=== PATIENT | male | born 1955 | race Caucasian/White ===

== ENCOUNTER 2016-12-23 09:59 | Day surgery (SDC) | payer OTHER ==
[2016-12-22 08:42] VITALS: BMI 33.2
[~2016-12-23 09:59] MED LIST: LACTATED RINGERS 1,000 ML IV SCH; LIDOCAINE 1% 20 ML VIAL (10MG/ML) FOR IV START INTRADERMA PRN
[2016-12-23] MEDS ORDERED: LACTATED RINGERS 1,000 ML IV ONE (10:50)
[2016-12-23 10:55] VITALS: TEMP 98.1
[2016-12-23] MEDS ORDERED: PROPOFOL 10 MG/ML 20 ML VIAL IV ONE (11:48)
[2016-12-23] MEDS ORDERED: LIDOCAINE 1% INJ 10MG/ML (20 ML MDV) ONE (11:48)
--- NOTE | 2016-12-23 12:11 | P.PCN ---
Date of Procedure: 12/23/16 Procedure(s) Performed: BRIEF HISTORY: Patient is a 61-year-old pleasant white male, scheduled for an elective colonoscopy as a part of screening for colorectal neoplasia. PROCEDURE PERFORMED: Colonoscopy. PREOPERATIVE DIAGNOSIS: Screening for colon cancer. IV sedation per Anesthesia. PROCEDURE: After informed consent was obtained, the patient, was brought into the endoscopy unit. IV sedation was administered by Anesthesia under continuous monitoring. Digital rectal examination was normal. Initially the Olympus CF- 160 flexible video colonoscope was then inserted in the rectum, gradually advanced into the cecum without any difficulty. Careful examination was performed as the scope was gradually being withdrawn. Ileocecal valve and the appendiceal orifice were visualized and appeared normal. Prep was excellent. Mucosa of the cecum, ascending colon, transverse colon, descending colon, sigmoid colon, and rectum appeared normal. Scattered sigmoid diverticulosis seen. Retroflexion was performed in the rectum and no lesions were seen. The patient tolerated the procedure well. IMPRESSION: Normal-appearing colon from rectum to cecum with no evidence of colorectal neoplasia. Scattered sigmoidal diverticulosis. RECOMMENDATIONS: Findings of this examination were discussed with the patient as well as his family. He was advised to have a repeat screening colonoscopy in 10 years.
[2016-12-23 12:15] VITALS: RESP 16
[2016-12-23 12:42] VITALS: BP 118/74; PULSE 56
== END 2016-12-23 12:58 | disposition home or self-care (01) ==
LOC: ORWHC2ENDO 09:59
PROVIDERS: ATTEND Internal Medicine Gastroenterology
DX: Z12.11 Encounter for screening for malignant neoplasm of colon (principal); Z79.2 Long term (current) use of antibiotics; Z88.1 Allergy status to other antibiotic agents
CPT/HCPCS: J2001; J2704; G0121; 45378

== ENCOUNTER 2022-12-22 12:31 | Inpatient (IN) | payer BC ==
[2022-12-22] MEDS ORDERED: ONDANSETRON 4 MG/2 ML VIAL IVP STA (13:45)
[2022-12-22] MEDS ORDERED: SODIUM CHLORIDE 0.9% 1,000 ML IV STA ×2 (13:45→15:47)
[2022-12-22] MEDS ORDERED: ACETAMINOPHEN TAB 500 MG TAB PO STA (14:04)
[2022-12-22 14:21] LABS: Basophils % (A) 0 %; Eosinophils % (A) 0 %; HCT 47.1 % (39.0-53.0); HGB 15.7 gm/dL (13.0-17.5); Lymphocytes # (A) 1.7 k/uL (1.0-4.8); Lymphocytes % (A) 16 %; MCH 31.7 pg (25.0-35.0); MCHC 33.3 g/dL (31.0-37.0); MCV 95.4 fL (80.0-100.0); Mean Platelet Volume 8.1; Monocytes # (A) 0.5 k/uL (0-1.0); Monocytes % (A) 5 %; Neutrophils # (A) 7.9 k/uL (1.3-7.7); Neutrophils % (A) 78 %; Platelet Count 191 k/uL (150-450); RBC 4.94 m/uL (4.30-5.90); RDW 12.9 % (11.5-15.5); WBC 10.3 k/uL (3.8-10.6)
[2022-12-22 14:33] LABS: Amorphous Sediment,Urine Rare /hpf; Appearance,Urine Cloudy (Clear); Bilirubin,Urine Negative (Negative); Blood,Urine Negative (Negative); Color,Urine Yellow; Glucose,Urine (UA) Negative (Negative); Ketones,Urine 1+ (Negative); Leukocyte Esterase,Urine Large (Negative); Mucus,Urine Many /hpf; Nitrite,Urine Positive (Negative); Protein,Urine 1+ (Negative); RBC,Urine 13 /hpf (0-5); Specific Gravity,Urine 1.024 (1.001-1.035); Urobilinogen,Urine <2.0 mg/dL (<2.0); WBC,Urine 101 /hpf (0-5)
[2022-12-22 14:41] LABS: ALT 23 U/L (4-49); AST 25 U/L (17-59); African American GFR (CKD) >90 (>60 ml/min/1.73 sqM); Albumin 4.2 g/dL (3.5-5.0); Alkaline Phosphatase 51 U/L (38-126); Anion Gap 9 mmol/L; Blood Urea Nitrogen 15 mg/dL (9-20); Calcium 9.1 mg/dL (8.4-10.2); Carbon Dioxide 28 mmol/L (22-30); Chloride 99 mmol/L (98-107); Glucose 109 mg/dL (74-99); Lipase 56 U/L (23-300); Non-African American GFR(CKD) >90 (>60 ml/min/1.73 sqM); Potassium 4.4 mmol/L (3.5-5.1); Sodium 136 mmol/L (137-145); Total Bilirubin 1.5 mg/dL (0.2-1.3); Total Protein 7.1 g/dL (6.3-8.2)
[2022-12-22] MEDS ORDERED: PIPERACILLIN-TAZOBACTAM 3.375 GM in SODIUM CHLORIDE 0.9% 100 ML IVPB STA (15:21)
--- NOTE | 2022-12-22 15:26 | CT ---
EXAMINATION TYPE: CT abdomen pelvis w con DATE OF EXAM: 12/22/2022 COMPARISON: None HISTORY: abdominal pain CT DLP: 1388.6 mGycm Automated exposure control for dose reduction was used. CONTRAST: CT scan of the abdomen pelvis is performed with IV Contrast, patient injected with 100mL mL of Isovue 300. FINDINGS- LUNG BASES- bilateral lower lobe infiltrate. Coronary artery calcification. LIVER/GB- multiple hypodense hepatic lesions typical simple cyst. PANCREAS- No gross abnormality is seen. SPLEEN- No gross abnormality is seen. ADRENALS- nonspecific thickening of the right adrenal gland. KIDNEYS/BLADDER- no hydronephrosis or nephrolithiasis. Parapelvic renal cysts.. BOWEL- there is inflammatory change within the right lower quadrant. Dilated small bowel loops are s een which could represent a reactive ileus. Appendix appears to be dilated measuring 1 cm. Ill-define d small fluid collection seen adjacent. There is a single questionable area of tiny free air noted on axial image 54 there is wall thickening of the distal ileum which could be reactive. Diverticulosis of the colon. LYMPH NODES- No greater than 1cm abdominal or pelvic lymph nodes are appreciated. OSSEOUS STRUCTURES- multilevel hypertrophic and degenerative changes. OTHER- prostate calcifications are noted. Trabeculation of the bladder correlate for chronic cystiti s. Aorta normal. IMPRESSION- 1. Severe inflammatory changes right lower quadrant most likely on the basis of acute appendicitis. T iny single free air bubble axial image 53 not excluded. There are is adjacent to a tiny 1.2 cm locali zed fluid collection. Could not exclude a tiny developing abscess. 2. Diffuse dilated small bowel likely reactive secondary to the right lower quadrant inflammatory pro cess and representing ileus correlate clinically.
[2022-12-22] MEDS ORDERED: NALOXONE 0.4 MG/ML 1 ML VIAL IV PRN ×2 (15:44→19:33)
[2022-12-22] MEDS ORDERED: ACETAMINOPHEN TAB 325 MG TAB PO PRN (15:48)
[2022-12-22] MEDS ORDERED: ONDANSETRON 4 MG/2 ML VIAL IVP PRN (15:49)
--- NOTE | 2022-12-22 15:57 | ED ---
Abdominal Pain HPI - General Chief Complaint: Abdominal Pain Stated Complaint: Abd pain Time Seen by Provider: 12/22/22 13:44 Source: patient Mode of arrival: ambulatory Limitations: no limitations - History of Present Illness Initial Comments: Patient is 67-year-old male who presents the emergency department for abdominal pain. Patient has pain in his right lower quadrant which is intermittent ranging from moderate to severe. Patient currently has mild pain. He has had nausea without vomiting. He denies fever and chills. Denies urinary symptoms. Denies changes in bowel habits. Sent from urgent care. No history of abdominal surgery. - Related Data Home Medications Medication Instructions Recorded Confirmed No Known Home Medications 01/17/17 01/22/17 Allergies Allergy/AdvReac Type Severity Reaction Status Date / Time azithromycin Allergy Intermediate Rash/Hives Verified 12/22/22 12:42 [From Zithromax Z-Alex] Review of Systems ROS Statement: Those systems with pertinent positive or pertinent negative responses have been documented in the HPI. ROS Other: All systems not noted in ROS Statement are negative. Past Medical History Past Medical History: Pulmonary Embolus (PE) Additional Past Medical History / Comment(s): SOLAR KERATOSIS. PRE CANCEROUS LESIONS-SCALP, FACE, HEAD. CURRENTLY ON ANTIBIOTICS FOR UTI SINCE 12/20/16 History of Any Multi-Drug Resistant Organisms: None Reported Past Surgical History: Orthopedic Surgery, Tonsillectomy Additional Past Surgical History / Comment(s): LT PATELLAR REPAIR. COLONOSCOPY Past Anesthesia/Blood Transfusion Reactions: Previous Problems w/ Anesthesia Additional Past Anesthesia/Blood Transfusion Reaction / Comment(s): PE 6 WEEKS AFTER KNEE SX Past Psychological History: No Psychological Hx Reported Past Alcohol Use History: Occasional Past Drug Use History: None Reported - Past Family History Mother History Unknown: Yes Additional Family Medical History / Comment(s): PT ADOPTED-FAMILY HX UNKNOWN General Exam Limitations: no limitations General appearance: alert Respiratory exam: Present: normal lung sounds bilaterally. Absent: respiratory distress, wheezes, rales, rhonchi, stridor Cardiovascular Exam: Present: regular rate, normal rhythm, normal heart sounds. Absent: systolic murmur, diastolic murmur, rubs, gallop, clicks GI/Abdominal exam: Present: soft, tenderness (RLQ mild ), normal bowel sounds. Absent: distended, guarding, rebound, rigid Neurological exam: Present: alert Psychiatric exam: Present: normal affect, normal mood Skin exam: Present: warm, dry, intact, normal color. Absent: rash Course Vital Signs 12/22/22 12/22/22 12:42 14:21 Temperature 98.6 F Pulse Rate 90 80 Respiratory 16 18 Rate Blood Pressure 112/74 118/72 O2 Sat by Pulse 94 L 94 L Oximetry Medical Decision Making - Medical Decision Making Was pt. sent in by a medical professional or institution (, PA, CENTRAL OFFICE WORKER, urgent care, hospital, or group home...) When possible be specific @Urgent care Did you speak to anyone other than the patient for history (EMS, parent, family, police, friend...)? What history was obtained from this source @ -No Did you review nursing and triage notes (agree or disagree)? Why? @ -I reviewed and agree with nursing and triage notes Were old charts reviewed (outside hosp., previous admission, EMS record, old EKG, old radiological studies, urgent care reports/EKG's, group home records)? Report findings @ -No old charts were reviewed Differential Diagnosis (chest pain, altered mental status, abdominal pain women, abdominal pain men, vaginal bleeding, weakness, fever, dyspnea, syncope, headache, dizziness, GI bleed, back pain, seizure, CVA, palpatations, mental health)? @ -Differential Abdominal Pain Men: Appendicitis, cholecystitis, diverticulosis, ischemic bowel, pancreatitis, hepatitis, UTI, gastroenteritis, AAA, incarcerated hernia, bowel obstruction, constipation, inflammatory bowel, hepatitis, peptic ulcer disease, splenic infarction, perforated viscus, testicular torsion, this is not meant to be an all-inclusive list EKG interpreted by me (3pts min.). @ -As above X-rays interpreted by me (1pt min.). @ -None done CT interpreted by me (1pt min.). @ -None done U/S interpreted by me (1pt. min.). @ -None done What testing was considered but not performed or refused? (CT, X-rays, U/S, labs)? Why? @ -None What meds were considered but not given or refused? Why? @ -None Did you discuss the management of the patient with other professionals (professionals i.e. , PA, CENTRAL OFFICE WORKER, lab, RT, psych nurse, social media coordinator, junior assistant manager, teacher, fire information officer, special education case manager)? Give summary @ -No Was smoking cessation discussed for >3mins.? @ -No Was critical care preformed (if so, how long)? @ -No Were there social determinants of health that impacted care today? How? (Homelessness, low income, unemployed, alcoholism, drug addiction, transportation, low edu. Level, literacy, decrease access to med. care, nursing home, rehab)? @ -No Was there de-escalation of care discussed even if they declined (Discuss DNR or withdrawal of care, Hospice)? DNR status @ -No What co-morbidities impacted this encounter? (DM, HTN, Smoking, COPD, CAD, Cancer, CVA, ARF, Chemo, Hep., AIDS, mental health diagnosis, sleep apnea, morbid obesity)? @ -None Was patient admitted / discharged? Hospital course, mention meds given and route, prescriptions, significant lab abnormalities, going to OR and other pertinent info. @ -Patient presented for right lower quadrant pain. The abdomen is soft is mild tenderness in the right lower quadrant no guarding. Patient is nontoxic- appearing, afebrile. No leukocytosis. Pain controlled with Tylenol. CT obtained interpreted by myself/radiology showing severe inflammatory changes consistent with appendicitis. I did speak with radiologist was concern for tiny free air bubble and adjacent tiny 1.2 cm localized fluid collection reflecting possible early abscess. There is also diffuse dilated small bowel likely reactive represent possible ileus. Blood cultures obtained IV Zosyn started. Discussed case with Dr. Barraza patient to be admitted for appendicitis he is NPO. Admitted in stable condition Undiagnosed new problem with uncertain prognosis? @ -No Drug Therapy requiring intensive monitoring for toxicity (Heparin, Nitro, Insulin, Cardizem)? @ -No Were any procedures done? @ -No Diagnosis/symptom? @ -Appendicitis Acute, or Chronic, or Acute on Chronic? @ Acute Uncomplicated (without systemic symptoms) or Complicated (systemic symptoms)? @ -complicated Side effects of treatment? @ -No Exacerbation, Progression, or Severe Exacerbation? @ -No Poses a threat to life or bodily function? How? (Chest pain, USA, ME, pneumonia, PE, COPD, DKA, ARF, appy, cholecystitis, CVA, Diverticulitis, Homicidal, Suicidal, threat to staff... and all critical care pts) @ -yes Dr. Milligan is my attending - Lab Data Result diagrams: 12/22/22 13:58 12/22/22 13:58 Lab Results 12/22/22 12/22/22 12/22/22 Range/Units 13:58 13:58 13:58 WBC 10.3 (3.8-10.6) k/uL RBC 4.94 (4.30-5.90) m/uL Hgb 15.7 (13.0-17.5) gm/dL Hct 47.1 (39.0-53.0) % MCV 95.4 (80.0-100.0) fL MCH 31.7 (25.0-35.0) pg MCHC 33.3 (31.0-37.0) g/dL RDW 12.9 (11.5-15.5) % Plt Count 191 (150-450) k/uL MPV 8.1 Neutrophils % 78 % Lymphocytes % 16 % Monocytes % 5 % Eosinophils % 0 % Basophils % 0 % Neutrophils # 7.9 H (1.3-7.7) k/uL Lymphocytes # 1.7 (1.0-4.8) k/uL Monocytes # 0.5 (0-1.0) k/uL Eosinophils # 0.0 (0-0.7) k/uL Basophils # 0.0 (0-0.2) k/uL Sodium 136 L (137-145) mmol/L Potassium 4.4 (3.5-5.1) mmol/L Chloride 99 (98-107) mmol/L Carbon Dioxide 28 (22-30) mmol/L Anion Gap 9 mmol/L BUN 15 (9-20) mg/dL Creatinine 0.85 (0.66-1.25) mg/dL Est GFR (CKD-EPI)AfAm >90 (>60 ml/min/1.73 sqM) Est GFR (CKD-EPI)NonAf >90 (>60 ml/min/1.73 sqM) Glucose 109 H (74-99) mg/dL Plasma Lactic Acid Rajeev (0.7-2.0) mmol/L Calcium 9.1 (8.4-10.2) mg/dL Total Bilirubin 1.5 H (0.2-1.3) mg/dL AST 25 (17-59) U/L ALT 23 (4-49) U/L Alkaline Phosphatase 51 (38-126) U/L Total Protein 7.1 (6.3-8.2) g/dL Albumin 4.2 (3.5-5.0) g/dL Lipase 56 (23-300) U/L Urine Color Yellow Urine Appearance Cloudy (Clear) Urine pH 6.0 (5.0-8.0) Ur Specific [place] 1.024 (1.001-1.035) Urine Protein 1+ H (Negative) Urine Glucose (UA) Negative (Negative) Urine Ketones 1+ H (Negative) Urine Blood Negative (Negative) Urine Nitrite Positive (Negative) Urine Bilirubin Negative (Negative) Urine Urobilinogen <2.0 (<2.0) mg/dL Ur Leukocyte Esterase Large H (Negative) Urine RBC 13 H (0-5) /hpf Urine WBC 101 H (0-5) /hpf Amorphous Sediment Rare H (None) /hpf Urine Mucus Many H (None) /hpf 12/22/22 Range/Units 13:58 WBC (3.8-10.6) k/uL RBC (4.30-5.90) m/uL Hgb (13.0-17.5) gm/dL Hct (39.0-53.0) % MCV (80.0-100.0) fL MCH (25.0-35.0) pg MCHC (31.0-37.0) g/dL RDW (11.5-15.5) % Plt Count (150-450) k/uL MPV Neutrophils % % Lymphocytes % % Monocytes % % Eosinophils % % Basophils % % Neutrophils # (1.3-7.7) k/uL Lymphocytes # (1.0-4.8) k/uL Monocytes # (0-1.0) k/uL Eosinophils # (0-0.7) k/uL Basophils # (0-0.2) k/uL Sodium (137-145) mmol/L Potassium (3.5-5.1) mmol/L Chloride (98-107) mmol/L Carbon Dioxide (22-30) mmol/L Anion Gap mmol/L BUN (9-20) mg/dL Creatinine (0.66-1.25) mg/dL Est GFR (CKD-EPI)AfAm (>60 ml/min/1.73 sqM) Est GFR (CKD-EPI)NonAf (>60 ml/min/1.73 sqM) Glucose (74-99) mg/dL Plasma Lactic Acid Rajeev 1.6 (0.7-2.0) mmol/L Calcium (8.4-10.2) mg/dL Total Bilirubin (0.2-1.3) mg/dL AST (17-59) U/L ALT (4-49) U/L Alkaline Phosphatase (38-126) U/L Total Protein (6.3-8.2) g/dL Albumin (3.5-5.0) g/dL Lipase (23-300) U/L Urine Color Urine Appearance (Clear) Urine pH (5.0-8.0) Ur Specific [place] (1.001-1.035) Urine Protein (Negative) Urine Glucose (UA) (Negative) Urine Ketones (Negative) Urine Blood (Negative) Urine Nitrite (Negative) Urine Bilirubin (Negative) Urine Urobilinogen (<2.0) mg/dL Ur Leukocyte Esterase (Negative) Urine RBC (0-5) /hpf Urine WBC (0-5) /hpf Amorphous Sediment (None) /hpf Urine Mucus (None) /hpf Disposition Clinical Impression: Appendicitis Disposition: ADMITTED IP TO THIS HOSP Condition: Stable Referrals: Seferino Esteban DO [Primary Care Provider] - 1-2 days
--- NOTE | 2022-12-22 17:47 | P.GSHP ---
History of Present Illness H&P Date: 12/22/22 Chief Complaint: Right lower quadrant pain This a 67-year-old male who has a 24 history of right lower quadrant pain. Patient's workup in the emergency. His CAT scan suggested acute appendicitis. Past Medical History Past Medical History: Pulmonary Embolus (PE) Additional Past Medical History / Comment(s): SOLAR KERATOSIS. PRE CANCEROUS LESIONS-SCALP, FACE, HEAD. CURRENTLY ON ANTIBIOTICS FOR UTI SINCE 12/20/16 History of Any Multi-Drug Resistant Organisms: None Reported Past Surgical History: Orthopedic Surgery, Tonsillectomy Additional Past Surgical History / Comment(s): LT PATELLAR REPAIR. COLONOSCOPY Past Anesthesia/Blood Transfusion Reactions: Previous Problems w/ Anesthesia Additional Past Anesthesia/Blood Transfusion Reaction / Comment(s): PE 6 WEEKS AFTER KNEE SX Past Psychological History: No Psychological Hx Reported Past Alcohol Use History: Occasional Past Drug Use History: None Reported - Past Family History Mother History Unknown: Yes Additional Family Medical History / Comment(s): PT ADOPTED-FAMILY HX UNKNOWN Medications and Allergies Home Medications Medication Instructions Recorded Confirmed Type No Known Home Medications 01/17/17 12/22/22 History Allergies Allergy/AdvReac Type Severity Reaction Status Date / Time azithromycin Allergy Intermediate Rash/Hives Verified 12/22/22 16:15 [From Zithromax Z-Alex] Surgical - Exam Vital Signs Temp Pulse Resp BP Pulse Ox 98.6 F 90 16 112/74 94 L 12/22/22 12:42 12/22/22 12:42 12/22/22 12:42 12/22/22 12:42 12/22/22 12:42 - General well developed, well nourished, no distress - Eyes PERRL - ENT normal pinna - Neck no masses - Respiratory normal expansion - Cardiovascular Rhythm: regular - Abdomen Marked right lower quadrant tenderness Abdomen: soft Results - Labs 12/22/22 13:58 12/22/22 13:58 Abnormal Lab Results - Last 24 Hours (Table) 12/22/22 12/22/22 12/22/22 Range/Units 13:58 13:58 13:58 Neutrophils # 7.9 H (1.3-7.7) k/uL Sodium 136 L (137-145) mmol/L Glucose 109 H (74-99) mg/dL Total Bilirubin 1.5 H (0.2-1.3) mg/dL Urine Protein 1+ H (Negative) Urine Ketones 1+ H (Negative) Ur Leukocyte Esterase Large H (Negative) Urine RBC 13 H (0-5) /hpf Urine WBC 101 H (0-5) /hpf Amorphous Sediment Rare H (None) /hpf Urine Mucus Many H (None) /hpf Diabetes panel 12/22/22 Range/Units 13:58 Sodium 136 L (137-145) mmol/L Potassium 4.4 (3.5-5.1) mmol/L Chloride 99 (98-107) mmol/L Carbon Dioxide 28 (22-30) mmol/L BUN 15 (9-20) mg/dL Creatinine 0.85 (0.66-1.25) mg/dL Glucose 109 H (74-99) mg/dL Calcium 9.1 (8.4-10.2) mg/dL AST 25 (17-59) U/L ALT 23 (4-49) U/L Alkaline Phosphatase 51 (38-126) U/L Total Protein 7.1 (6.3-8.2) g/dL Albumin 4.2 (3.5-5.0) g/dL Calcium panel 12/22/22 Range/Units 13:58 Calcium 9.1 (8.4-10.2) mg/dL Albumin 4.2 (3.5-5.0) g/dL Pituitary panel 12/22/22 Range/Units 13:58 Sodium 136 L (137-145) mmol/L Potassium 4.4 (3.5-5.1) mmol/L Chloride 99 (98-107) mmol/L Carbon Dioxide 28 (22-30) mmol/L BUN 15 (9-20) mg/dL Creatinine 0.85 (0.66-1.25) mg/dL Glucose 109 H (74-99) mg/dL Calcium 9.1 (8.4-10.2) mg/dL Adrenal panel 12/22/22 Range/Units 13:58 Sodium 136 L (137-145) mmol/L Potassium 4.4 (3.5-5.1) mmol/L Chloride 99 (98-107) mmol/L Carbon Dioxide 28 (22-30) mmol/L BUN 15 (9-20) mg/dL Creatinine 0.85 (0.66-1.25) mg/dL Glucose 109 H (74-99) mg/dL Calcium 9.1 (8.4-10.2) mg/dL Total Bilirubin 1.5 H (0.2-1.3) mg/dL AST 25 (17-59) U/L ALT 23 (4-49) U/L Alkaline Phosphatase 51 (38-126) U/L Total Protein 7.1 (6.3-8.2) g/dL Albumin 4.2 (3.5-5.0) g/dL - Imaging CT scan - abdomen: report reviewed (Computed tomography scan shows evidence of a dilated appendix with inflammatory changes right lower quadrant) Assessment and Plan Assessment: Acute appendicitis. Patient undergo laparoscopic appendectomy
[2022-12-22] MEDS ORDERED: PROPOFOL 10 MG/ML 20 ML VIAL IV ONE (18:43)
[2022-12-22] MEDS ORDERED: fentaNYL (PF) 50 MCG/ML 2 ML AMP ONE (18:43)
[2022-12-22] MEDS ORDERED: ROCURONIUM 10 MG/ML (5 ML VIAL) IV ONE (18:43)
[2022-12-22] MEDS ORDERED: GLYCOPYRROLATE 0.2 MG/ML 2 ML VIAL ONE (18:43)
[2022-12-22] MEDS ORDERED: NEOSTIGMINE 1 MG/ML 10 ML VIAL ONE (18:43)
[2022-12-22] MEDS ORDERED: PHENYLEPHRINE-0.9% NACL SYG 1,000 MCG/10 ML SYRINGE ONE (18:43)
[2022-12-22] MEDS ORDERED: KETOROLAC 15 MG/ML 1 ML VIAL ONE (18:43)
[2022-12-22] MEDS ORDERED: MIDAZOLAM 2 MG/2 ML VIAL ONE (18:43)
[2022-12-22] MEDS ORDERED: LIDOCAINE 2% INJ 20 MG/ML (2 ML VIAL) ONE (18:43)
[2022-12-22] MEDS ORDERED: SUCCINYLCHOLINE CHLORIDE 200 MG/10 ML VIAL IV ONE (18:43)
[2022-12-22] MEDS ORDERED: LACTATED RINGERS 1,000 ML IV ONE ×2 (18:45→19:33)
[2022-12-22] MEDS ORDERED: ONDANSETRON 4 MG/2 ML VIAL IVP ONE (18:47)
[2022-12-22] MEDS ORDERED: DEXAMETHASONE SOD PHOSPHATE 4 MG/ML 1 ML VIAL IVP ONE (18:47)
[2022-12-22] MEDS ORDERED: HEPARIN SODIUM,PORCINE 5,000 UNIT/ML 1 ML VIAL SQ ONE (18:48)
[2022-12-22] MEDS ORDERED: LIDOCAINE 1%-EPI 1:100,000 50 ML VIAL SQ ONE (19:10)
[2022-12-22] MEDS ORDERED: HYDROmorphone 1 MG/ML 1 ML SYRINGE IVP PRN (19:33)
--- NOTE | 2022-12-22 19:33 | P.OP ---
Date of Procedure: 12/22/22 Preoperative Diagnosis: Acute appendicitis Postoperative Diagnosis: Acute appendicitis Procedure(s) Performed: Laparoscopic appendectomy Anesthesia: DUC Surgeon: Curry Barraza Estimated Blood Loss (ml): 10 Pathology: other (Appendix) Condition: stable Disposition: PACU Description of Procedure: The patient's placed on the operating table in the supine position. The patient received general anesthesia. The abdomen was prepped and draped in the usual sterile fashion. The skin was anesthetized 1% local Xylocaine at the trocar sites. Using an 11 blade the skin was incised at the umbilicus. The umbilicus was grasped with a Kumar clamp and then a Veress needle was placed into the peritoneal cavity. Position of the Veress needle was confirmed with positive drop test. After adequate insufflation a 5 mm trocar was placed into the peritoneal cavity. The abdomen was further insufflated. And then the laparoscope was placed in the peritoneal cavity. Next a 5 mm trocar was placed in the midline suprapubic position. And then a 10 mm trocar was placed in the midline epigastric position. The patient was rotated with the right side up and in Trendelenburg. The appendix was visualized. The appendix appeared to be inflamed. The appendix was grasped and then using the Harmonic scissors the mesoappendix was divided. A PDS Endoloop was then placed around the base of the appendix. And then the appendix was divided using Harmonic scissors. The appendix was placed into an Endo Catch and brought out through the 10 mm trocar site. The abdomen was irrigated. There is no bleeding seen. The trochars withdrawn. The skin was closed interrupted 3-0 Monocryl suture. Dermabond dressing was applied. Patient was sent to recovery room in stable condition.
[2022-12-22] MEDS ORDERED: METOCLOPRAMIDE 5 MG/ML 2 ML VIAL IVP ONE (19:42)
[2022-12-22] MEDS: HYDROmorphone 0.5 MG/0.5 ML SYRINGE IVP PRN (20:48)
[2022-12-23] MEDS: KETOROLAC 15 MG/ML 1 ML VIAL IVP SCH ×4 (00:08→17:59)
[2022-12-23] MEDS ORDERED: SODIUM CHLORIDE 0.9% 1,000 ML IV ONE (00:38)
[2022-12-23 01:14] LABS: HCT 31.1 % (39.0-53.0); MCH 31.8 pg (25.0-35.0); MCHC 32.5 g/dL (31.0-37.0); MCV 98.1 fL (80.0-100.0); Mean Platelet Volume 9.6; Platelet Count 171 k/uL (150-450); RBC 3.17 m/uL (4.30-5.90); RDW 13.4 % (11.5-15.5); WBC 8.9 k/uL (3.8-10.6)
[2022-12-23 01:17] LABS: HGB 10.1 gm/dL (13.0-17.5)
[2022-12-23] MEDS: ENOXAPARIN 40 MG/0.4 ML SYRINGE SQ SCH (09:20)
[2022-12-23 13:12] LABS: Basophils # (A) 0.02 X 10*3/uL (0.00-0.10); Basophils % (A) 0.2 %; Eosinophils # (A) 0 X 10*3/uL (0.04-0.35); Eosinophils % (A) 0 %; HCT 34.5 % (39.6-50.0); Lymphocytes # (A) 1.36 X 10*3/uL (0.90-5.00); Lymphocytes % (A) 11.9 %; MCH 31.1 pg (27.0-32.0); MCHC 31.9 d/dL (32.0-37.0); MCV 97.5 FL (80.0-97.0); Mean Platelet Volume 10.9 FL (9.5-12.2); Monocytes # (A) 0.74 X 10*3/uL (0.20-1.00); Monocytes % (A) 6.5 %; NRBC Per 100 WBC 0 X 10*3/uL (0.00-0.01); Neutrophils # (A) 9.22 X 10*3/uL (1.80-7.70); Neutrophils % (A) 80.9 %; Platelet Count 200 X 10*3/uL (140-440); RBC 3.54 X 10*6/uL (4.40-5.60); RDW 13.4 % (11.5-14.5)
--- NOTE | 2022-12-23 13:26 | P.CONS ---
History of Present Illness - Reason for Consult Consult date: 12/23/22 Medical management - History of Present Illness History of present illness; patient is a 67-year-old gentleman with no significant past medical history who presented to the ER for right lower quadrant abdominal pain. Patient was sent in from urgent care. Patient has been having this abdominal pain for the last few days, intermittent, nonradiating. Denies any fever or chills. Was having nausea but no vomiting. Because of abdominal pain, he was referred to ER for suspicion of acute appendicitis Initial lab work done in the ER showed WBC 10.3, hemoglobin 15.7, platelet, 91, sodium 136, potassium 4.4, BUN 15, creatinine 0.85, bilirubin 1.5 CT abdominal and pelvis done showed severe inflammatory changes in right lower quadrant most likely on the basis of acute appendicitis. Patient was admitted to surgery service, patient underwent left pubic appendicectomy. Postoperative medical team consulted REVIEW OF SYSTEMS: CONSTITUTIONAL: No fever, no malaise, no fatigue. HEENT: No recent visual problems or hearing problems. Denied any sore throat. CARDIOVASCULAR: No chest pain, orthopnea, PND, no palpitations, no syncope. PULMONARY: No shortness of breath, no cough, no hemoptysis. GASTROINTESTINAL: Complaining of abdominal pain, denies any nausea or vomiting NEUROLOGICAL: No headaches, no weakness, no numbness. HEMATOLOGICAL: Denies any bleeding or petechiae. GENITOURINARY: Denies any burning micturition, frequency, or urgency. MUSCULOSKELETAL/RHEUMATOLOGICAL: Denies any joint pain, swelling, or any muscle pain. ENDOCRINE: Denies any polyuria or polydipsia. The rest of the 14-point review of systems is negative. PHYSICAL EXAMINATION: GENERAL: The patient is alert and oriented x3, not in any acute distress. Well developed, well nourished. HEENT: Pupils are round and equally reacting to light. EOMI. No scleral icterus. No conjunctival pallor. Normocephalic, atraumatic. No pharyngeal erythema. No thyromegaly. CARDIOVASCULAR: S1 and S2 present. No murmurs, rubs, or gallops. PULMONARY: Chest is clear to auscultation, no wheezing or crackles. ABDOMEN: Tender, laparoscopic surgical incision seen, bowel sounds audible MUSCULOSKELETAL: No joint swelling or deformity. EXTREMITIES: No cyanosis, clubbing, or pedal edema. NEUROLOGICAL: Gross neurological examination did not reveal any focal deficits. SKIN: No rashes. Assessment and plan Acute appendicitis status post laparoscopic appendicectomy Monitor vital signs Monitor CBC Monitor CMP Continue pain management per surgery Advance diet per surgery Encourage ambulation Aggressive use of I-S Patient does not take any prescription medications for any chronic conditions. Labs and medication were reviewed.. Continue same treatment. Continue with symptomatic treatment. Resume home medication. Monitor labs and vitals. DVT and GI prophylaxis. Further recommendations as per clinical course of the patient Dictation was produced using [employer] dictation software. please excuse any grammatical, word or spelling errors. Past Medical History Past Medical History: Pulmonary Embolus (PE) Additional Past Medical History / Comment(s): SOLAR KERATOSIS. PRE CANCEROUS LESIONS-SCALP, FACE, HEAD. CURRENTLY ON ANTIBIOTICS FOR UTI SINCE 12/20/16 History of Any Multi-Drug Resistant Organisms: None Reported Past Surgical History: Orthopedic Surgery, Tonsillectomy Additional Past Surgical History / Comment(s): LT PATELLAR REPAIR. COLONOSCOPY Past Anesthesia/Blood Transfusion Reactions: Previous Problems w/ Anesthesia Additional Past Anesthesia/Blood Transfusion Reaction / Comm: PE 6 WEEKS AFTER KNEE SX Past Psychological History: No Psychological Hx Reported Smoking Status: Never smoker Past Alcohol Use History: None Reported Past Drug Use History: None Reported - Past Family History Mother History Unknown: Yes Additional Family Medical History / Comment(s): PT ADOPTED-FAMILY HX UNKNOWN Medications and Allergies Home Medications Medication Instructions Recorded Confirmed Type No Known Home Medications 01/17/17 12/22/22 History Allergies Allergy/AdvReac Type Severity Reaction Status Date / Time azithromycin Allergy Intermediate Rash/Hives Verified 12/22/22 16:15 [From Zithromax Z-Alex] Physical Exam Vitals: Vital Signs Temp Pulse Pulse Pulse Resp BP BP 12/23/22 09:23 96 107/68 12/23/22 08:07 98.3 F 99 16 104/70 12/23/22 05:05 85 12/23/22 04:50 85 12/23/22 04:35 87 12/23/22 04:15 83 12/23/22 04:05 88 12/23/22 03:50 89 12/23/22 03:25 62 12/23/22 03:10 96 12/23/22 02:50 94 12/23/22 02:35 87 12/23/22 02:10 85 12/23/22 01:57 99 12/23/22 01:40 95 12/23/22 01:12 86 12/23/22 00:55 90 12/23/22 00:40 95 12/23/22 00:31 105 H 83/57 12/22/22 21:56 97 12/22/22 21:40 100 12/22/22 21:25 77 12/22/22 21:11 63 12/22/22 20:56 62 12/22/22 20:41 52 L 12/22/22 20:07 62 16 12/22/22 20:00 97.5 F L 52 L 17 12/22/22 19:52 71 16 12/22/22 19:37 85 16 12/22/22 18:30 97 F L 79 25 H 12/22/22 17:00 56 L 18 99/60 12/22/22 16:01 54 L 18 115/68 12/22/22 14:21 80 18 118/72 BP Pulse Ox 12/23/22 09:23 12/23/22 08:07 95 12/23/22 05:05 103/64 97 12/23/22 04:50 96/60 97 12/23/22 04:35 101/67 96 12/23/22 04:15 99/65 96 12/23/22 04:05 102/66 97 12/23/22 03:50 101/68 97 12/23/22 03:25 97/68 98 12/23/22 03:10 98/65 96 12/23/22 02:50 89/58 96 12/23/22 02:35 99/66 97 12/23/22 02:10 95/63 98 12/23/22 01:57 101/65 98 12/23/22 01:40 95/61 97 12/23/22 01:12 96/60 95 12/23/22 00:55 103/67 96 12/23/22 00:40 75/57 12/23/22 00:31 95 12/22/22 21:56 104/67 95 12/22/22 21:40 92/59 96 12/22/22 21:25 85/57 96 12/22/22 21:11 100/58 95 12/22/22 20:56 99/65 94 L 12/22/22 20:41 116/73 96 12/22/22 20:07 118/64 96 12/22/22 20:00 121/70 96 12/22/22 19:52 110/57 92 L 12/22/22 19:37 109/67 96 12/22/22 18:30 122/67 97 12/22/22 17:00 94 L 12/22/22 16:01 93 L 12/22/22 14:21 94 L Intake and Output 12/22/22 12/23/22 12/23/22 22:59 06:59 14:59 Intake Total 850 Output Total 10 900 Balance 840 -900 Intake: IV 850 Output: Urine 0 900 Straight 900 Estimated Blood Loss 10 Other: # Voids 0 Weight 93.894 kg Results CBC & Chem 7: 12/23/22 05:50 12/22/22 13:58 Labs: Abnormal Lab Results - Last 24 Hours (Table) 12/22/22 12/22/22 12/22/22 Range/Units 13:58 13:58 13:58 WBC (4.50-10.00) X 10*3/uL RBC (4.30-5.90) m/uL Hgb (13.0-17.5) gm/dL Hct (39.0-53.0) % MCV (80.0-97.0) FL MCHC (32.0-37.0) d/dL Neutrophils # 7.9 H (1.3-7.7) k/uL Eosinophils # (0.04-0.35) X 10*3/uL Sodium 136 L (137-145) mmol/L Glucose 109 H (74-99) mg/dL Total Bilirubin 1.5 H (0.2-1.3) mg/dL Urine Protein 1+ H (Negative) Urine Ketones 1+ H (Negative) Ur Leukocyte Esterase Large H (Negative) Urine RBC 13 H (0-5) /hpf Urine WBC 101 H (0-5) /hpf Amorphous Sediment Rare H (None) /hpf Urine Mucus Many H (None) /hpf 12/23/22 12/23/22 Range/Units 00:59 05:50 WBC 11.40 H (4.50-10.00) X 10*3/uL RBC 3.17 L 3.54 L (4.30-5.90) m/uL Hgb 10.1 L D 11.0 L (13.0-17.5) gm/dL Hct 31.1 L 34.5 L (39.0-53.0) % MCV 97.5 H (80.0-97.0) FL MCHC 31.9 L (32.0-37.0) d/dL Neutrophils # 9.22 H (1.3-7.7) k/uL Eosinophils # 0 L (0.04-0.35) X 10*3/uL Sodium (137-145) mmol/L Glucose (74-99) mg/dL Total Bilirubin (0.2-1.3) mg/dL Urine Protein (Negative) Urine Ketones (Negative) Ur Leukocyte Esterase (Negative) Urine RBC (0-5) /hpf Urine WBC (0-5) /hpf Amorphous Sediment (None) /hpf Urine Mucus (None) /hpf
[2022-12-23 14:21] LABS: ALT 15 U/L (10-49); AST 14 U/L (14-35); Albumin 3.5 d/dL (3.8-4.9); Albumin/Globulin Ratio 1.84 Ratio (1.60-3.17); Alkaline Phosphatase 42 U/L (41-126); Blood Urea Nitrogen 21.8 mg/dL (9.0-27.0); Calcium 8.5 mg/dL (8.7-10.3); Carbon Dioxide 24.1 mmol/L (21.6-31.8); Chloride 105 mmol/L (96-109); Globulin 1.9 d/dL (1.6-3.3); Glucose 130 mg/dL (70-110); Potassium 5.2 mmol/L (3.5-5.5); Sodium 141 mmol/L (135-145); Total Bilirubin 0.7 mg/dL (0.3-1.2); Total Protein 5.4 d/dL (6.2-8.2)
--- NOTE | 2022-12-23 16:21 | P.PN ---
Subjective Progress Note Date: 12/23/22 CHIEF COMPLAINT: Acute appendicitis HISTORY OF PRESENT ILLNESS: Patient is postop day #1 status post laparoscopic appendectomy. Patient reports last night he stood up to go use the restroom. And had significant bleeding from his top incision. Also became diaphoretic and had decrease in his BP. He did receive a liter bolus. The bleeding did stop through the night. BP has stabilized. And patient is no longer dizzy. He was placed on bedrest through the morning. Afebrile. Mild tachycardia heart rate 108 BP 110/65 WBC is 11.4 Hgb did drop from 15-10. Repeat hemoglobin 11 platelets 200 PHYSICAL EXAM: VITAL SIGNS: Reviewed. GENERAL: Well-developed in no acute distress. HEENT: No sclera icterus. Extraocular movements grossly intact. Moist buccal mucosa. Head is atraumatic, normocephalic. ABDOMEN: Soft. Nondistended. Incision sites with minimal dried blood noted. Soft. Very mild discomfort with palpation NEUROLOGIC: Alert and oriented. Cranial nerves II through XII grossly intact. ASSESSMENT: 1. Acute appendicitis status post laparoscopic appendectomy PLAN: -Advance diet as tolerated -Patient can increase activity level -Incentive spirometer ordered -[place] added for oral pain medication -Continue antibiotics -Possible discharge tomorrow -Repeat CBC in AM -DVT prophylaxis Lovenox Physician Molecular Modeler note has been reviewed by physician. Signing provider agrees with the documented findings, assessment, and plan of care. Objective - Vital Signs Vital signs: Vital Signs Temp 98.6 F 12/23/22 13:51 Pulse 108 H 12/23/22 13:51 Resp 16 12/23/22 13:51 BP 110/65 12/23/22 13:51 Pulse Ox 96 12/23/22 13:51 FiO2 Intake & Output 12/22/22 12/23/22 12/23/22 18:59 06:59 18:59 Intake Total 800 50 Output Total 10 900 Balance 800 40 -900 Weight 93.894 kg 93.894 kg Intake: IV 800 50 Output: Urine 0 900 Straight 900 Estimated Blood Loss 10 Other: # Voids 0 - Labs CBC & Chem 7: 12/23/22 05:50 12/23/22 05:50 Labs: Abnormal Lab Results - Last 24 Hours (Table) 09/22/23 09/22/23 09/22/23 Range/Units 00:59 05:50 05:50 WBC 11.40 H (4.50-10.00) X 10*3/uL RBC 3.17 L 3.54 L (4.30-5.90) m/uL Hgb 10.1 L D 11.0 L (13.0-17.5) gm/dL Hct 31.1 L 34.5 L (39.0-53.0) % MCV 97.5 H (80.0-97.0) FL MCHC 31.9 L (32.0-37.0) d/dL Neutrophils # 9.22 H (1.80-7.70) X 10*3/uL Eosinophils # 0 L (0.04-0.35) X 10*3/uL BUN/Creatinine Ratio 21.80 H (12.00-20.00) Ratio Glucose 130 H (70-110) mg/dL Calcium 8.5 L (8.7-10.3) mg/dL Total Protein 5.4 L (6.2-8.2) d/dL Albumin 3.5 L (3.8-4.9) d/dL
[2022-12-23] MEDS: PIPERACILLIN-TAZOBACTAM 3.375 GM in SODIUM CHLORIDE 0.9% 100 ML IVPB SCH (16:45)
[2022-12-23] MEDS: HYDROcodone/APAP 5-325MG 1 EACH TAB PO PRN (22:40)
[2022-12-24] MEDS: KETOROLAC 15 MG/ML 1 ML VIAL IVP SCH ×4 (00:24→16:59)
[2022-12-24] MEDS: PIPERACILLIN-TAZOBACTAM 3.375 GM in SODIUM CHLORIDE 0.9% 100 ML IVPB SCH ×4 (00:25→23:22)
[2022-12-24] MEDS: HYDROcodone/APAP 5-325MG 1 EACH TAB PO PRN (06:55)
[2022-12-24 07:36] LABS: Basophils % (A) 0 %; Eosinophils % (A) 0 %; HCT 26.8 % (39.0-53.0); Lymphocytes # (A) 1.4 k/uL (1.0-4.8); Lymphocytes % (A) 17 %; MCH 32.1 pg (25.0-35.0); MCHC 33.6 g/dL (31.0-37.0); MCV 95.5 fL (80.0-100.0); Mean Platelet Volume 9.7; Monocytes # (A) 0.5 k/uL (0-1.0); Monocytes % (A) 6 %; Neutrophils # (A) 6.2 k/uL (1.3-7.7); Neutrophils % (A) 75 %; Platelet Count 190 k/uL (150-450); RDW 13.6 % (11.5-15.5); WBC 8.2 k/uL (3.8-10.6)
[2022-12-24] MEDS: ENOXAPARIN 40 MG/0.4 ML SYRINGE SQ SCH (07:47)
--- NOTE | 2022-12-24 08:18 | P.PN ---
Progress Note - Text Progress Note Date: 12/24/22 The patient states he feels better today. He did have some bleeding from his umbilical incision site. On exam vital signs appear stable. Abdomen is soft incision sites are clean dry intact Status post laparoscopic appendectomy for severe acute appendicitis. Patient can receive IV antibiotics. He'll be observed closely.
[2022-12-24] MEDS: TAMSULOSIN 0.4 MG CAP.ER.24H PO SCH (09:49)
--- NOTE | 2022-12-24 13:47 | P.PN ---
Subjective Progress Note Date: 12/24/22 patient is a 67-year-old gentleman with no significant past medical history who presented to the ER for right lower quadrant abdominal pain. Patient was sent in from urgent care. Patient has been having this abdominal pain for the last few days, intermittent, nonradiating. Denies any fever or chills. Was having nausea but no vomiting. Because of abdominal pain, he was referred to ER for suspicion of acute appendicitis Initial lab work done in the ER showed WBC 10.3, hemoglobin 15.7, platelet, 91, sodium 136, potassium 4.4, BUN 15, creatinine 0.85, bilirubin 1.5 CT abdominal and pelvis done showed severe inflammatory changes in right lower quadrant most likely on the basis of acute appendicitis. Patient was admitted to surgery service, patient underwent left pubic appendic ectomy. Postoperative medical team consulted 12/24. Patient seen and examined. Patient has a Harrington in place. Passing gas. REVIEW OF SYSTEMS: CONSTITUTIONAL: No fever, no malaise,. CARDIOVASCULAR: No chest pain, no palpitations, no syncope. PULMONARY: No shortness of breath, no cough, GASTROINTESTINAL: No diarrhea, no nausea, no vomiting, no abdominal pain. NEUROLOGICAL: No headaches, no weakness, PHYSICAL EXAMINATION: GENERAL: The patient is alert and oriented x3, not in any acute distress. Well developed, well nourished. HEENT: Pupils are round and equally reacting to light. EOMI. No scleral icterus. No conjunctival pallor. Normocephalic, atraumatic. No pharyngeal erythema. No thyromegaly. CARDIOVASCULAR: S1 and S2 present. No murmurs, rubs, or gallops. PULMONARY: Chest is clear to auscultation, no wheezing or crackles. ABDOMEN: Laparoscopic surgical incision seen, no tenderness, no guarding MUSCULOSKELETAL: No joint swelling or deformity. EXTREMITIES: No cyanosis, clubbing, or pedal edema. NEUROLOGICAL: Gross neurological examination did not reveal any focal deficits. SKIN: No rashes. Assessment and plan Acute appendicitis status post laparoscopic appendicectomy Monitor vital signs Monitor CBC Monitor CMP Continue pain management per surgery Advance diet per surgery Encourage ambulation Aggressive use of I-S Continue IV Zosyn Gen. surgery is on board Labs and medication were reviewed.. Continue same treatment. Continue with symptomatic treatment. Resume home medication. Monitor labs and vitals. DVT and GI prophylaxis. Further recommendations as per clinical course of the patient Dictation was produced using [employer] dictation software. please excuse any grammatical, word or spelling errors. Objective - Vital Signs Vital signs: Vital Signs Temp 98.3 F 12/24/22 07:01 Pulse 50 L 12/24/22 07:01 Resp 18 12/24/22 07:01 BP 97/60 12/24/22 07:01 Pulse Ox 94 L 12/24/22 07:01 FiO2 Intake & Output 12/23/22 12/24/22 12/24/22 18:59 06:59 18:59 Output Total 900 0 Balance -900 0 Output: Urine 900 0 Straight 900 Other: Voiding Method Indwelling Catheter # Voids 0 - Labs CBC & Chem 7: 12/24/22 07:02 12/23/22 05:50 Labs: Abnormal Lab Results - Last 24 Hours (Table) 12/23/22 12/24/22 Range/Units 05:50 07:02 RBC 2.80 L (4.30-5.90) m/uL Hgb 9.0 L (13.0-17.5) gm/dL Hct 26.8 L (39.0-53.0) % BUN/Creatinine Ratio 21.80 H (12.00-20.00) Ratio Glucose 130 H (70-110) mg/dL Calcium 8.5 L (8.7-10.3) mg/dL Total Protein 5.4 L (6.2-8.2) d/dL Albumin 3.5 L (3.8-4.9) d/dL Microbiology - Last 24 Hours (Table) 12/22/22 15:51 Blood Culture - Preliminary Blood 12/22/22 15:35 Blood Culture - Preliminary Blood
[2022-12-24] MEDS: ONDANSETRON 4 MG/2 ML VIAL IVP PRN (16:59)
[2022-12-25] MEDS: ONDANSETRON 4 MG/2 ML VIAL IVP PRN ×2 (01:15→14:30)
[2022-12-25] MEDS: HYDROcodone/APAP 5-325MG 1 EACH TAB PO PRN (08:41)
[2022-12-25] MEDS: TAMSULOSIN 0.4 MG CAP.ER.24H PO SCH (08:41)
[2022-12-25] MEDS: PIPERACILLIN-TAZOBACTAM 3.375 GM in SODIUM CHLORIDE 0.9% 100 ML IVPB SCH ×3 (08:42→23:39)
[2022-12-25] MEDS: ENOXAPARIN 40 MG/0.4 ML SYRINGE SQ SCH (08:42)
[2022-12-25 09:08] LABS: HCT 24.7 % (39.6-50.0); HGB 7.8 d/dL (13.0-17.0); MCH 31.1 pg (27.0-32.0); MCHC 31.6 d/dL (32.0-37.0); MCV 98.4 FL (80.0-97.0); Mean Platelet Volume 11.2 FL (9.5-12.2); NRBC Per 100 WBC 0 X 10*3/uL (0.00-0.01); Platelet Count 219 X 10*3/uL (140-440); RBC 2.51 X 10*6/uL (4.40-5.60); RDW 13.6 % (11.5-14.5)
--- NOTE | 2022-12-25 10:24 | P.PN ---
Progress Note - Text Progress Note Date: 12/25/22 Patient issues with urinary retention yesterday. Harrington catheter in place. On exam vital signs are stable. Abdomen soft. Incision is clean dry intact. Status post laparoscopic appendectomy for acute appendicitis. Patient will mostly be discharged home tomorrow. He may require Harrington catheter.
[2022-12-25 12:18] LABS: ALT 12 U/L (10-49); AST 13 U/L (14-35); Albumin 3.2 d/dL (3.8-4.9); Albumin/Globulin Ratio 1.68 Ratio (1.60-3.17); Alkaline Phosphatase 37 U/L (41-126); BUN/Creat Ratio 27.33 Ratio (12.00-20.00); Blood Urea Nitrogen 24.6 mg/dL (9.0-27.0); Calcium 8.5 mg/dL (8.7-10.3); Carbon Dioxide 26.2 mmol/L (21.6-31.8); Chloride 104 mmol/L (96-109); Globulin 1.9 d/dL (1.6-3.3); Glucose 109 mg/dL (70-110); Potassium 4.7 mmol/L (3.5-5.5); Sodium 141 mmol/L (135-145); Total Bilirubin 0.4 mg/dL (0.3-1.2); Total Protein 5.1 d/dL (6.2-8.2)
--- NOTE | 2022-12-25 12:32 | CT ---
EXAMINATION TYPE: CT abdomen pelvis wo con CT DLP: 1141.4 mGycm, Automated exposure control for dose reduction was used. DATE OF EXAM: 12/25/2022 11:54 AM COMPARISON: CT abdomen pelvis most recent from and 12/22/2022 CLINICAL INDICATION:Male, 67 years old with history of distended abdomen; abd pain TECHNIQUE: Axial CT of the abdomen and pelvis. Sagittal and coronal reformats were created on a [employer] workstation. Contrast used: mL of , (none if empty) Oral contrast used: without Oral Contrast (none if empty) FINDINGS: LOWER CHEST: Consolidation changes are seen in the right lung base which is new from prior. Left lowe r lung airspace opacities are lesser extent. ABDOMEN LIVER: Simple appearing hepatic cysts are present. GALLBLADDER AND BILE DUCTS: Unremarkable. PANCREAS: Unremarkable. SPLEEN: Unremarkable. ADRENAL GLANDS: Unremarkable. KIDNEYS AND URETERS: No evidence of hydronephrosis or renal calculus. The ureters are unremarkable. PELVIS BLADDER: Nondistended with Harrington catheter in place. There is gas within the bladder lumen compatible with likely Harrington catheter insertion. REPRODUCTIVE: Unremarkable. ABDOMEN & PELVIS STOMACH AND BOWEL: No evidence of bowel obstruction. Scattered colonic diverticula. Small bowel dilat ion up to 4.4 cm with gaseous distention. The appendix is been surgically removed. PERITONEUM/RETROPERITONEUM: Higher density fluid is seen throughout the abdomen layering within the l ower density fluid of which is compatible with blood products. VASCULATURE: Mild atherosclerotic calcifications are present throughout the abdominal aorta and its b ranches. No evidence of aortic aneurysm. MUSCULOSKELETAL: No acute osseous abnormalities, S-shaped scoliosis is seen throughout the spine. LYMPH NODES: No gross evidence for lymphadenopathy. SOFT TISSUE/ABDOMINAL WALL: Bilateral fat-containing inguinal hernias. IMPRESSION: 1. New mixed density fluid throughout the abdomen compatible with hemoperitoneum . Findings compatib le with recent appendectomy with hemorrhage reported by robotics technologist. There is associated likely r eactive ileus and/or partial obstruction with multiple dilated loops of small bowel throughout the ab domen. No free air visualized. 2. Right lower lung airspace consolidation. Correlate for aspiration and/or pneumonia. Findings communicated to Dr. Curry Barraza MD on 12/25/2022 12:[address] Iker Hester.
--- NOTE | 2022-12-25 13:38 | P.PN ---
Subjective Progress Note Date: 12/25/22 patient is a 67-year-old gentleman with no significant past medical history who presented to the ER for right lower quadrant abdominal pain. Patient was sent in from urgent care. Patient has been having this abdominal pain for the last few days, intermittent, nonradiating. Denies any fever or chills. Was having nausea but no vomiting. Because of abdominal pain, he was referred to ER for suspicion of acute appendicitis Initial lab work done in the ER showed WBC 10.3, hemoglobin 15.7, platelet, 91, sodium 136, potassium 4.4, BUN 15, creatinine 0.85, bilirubin 1.5 CT abdominal and pelvis done showed severe inflammatory changes in right lower quadrant most likely on the basis of acute appendicitis. Patient was admitted to surgery service, patient underwent left pubic appendic ectomy. Postoperative medical team consulted 12/24. Patient seen and examined. Patient has a Harrington in place. Passing gas. 12/25. Patient seen and examined. Blood work done this morning showed WBC 8.1, hemoglobin 7.8, platelet count 219. Complaining of abdominal distention. CT abdominal and pelvis ordered REVIEW OF SYSTEMS: CONSTITUTIONAL: No fever, no malaise,. CARDIOVASCULAR: No chest pain, no palpitations, no syncope. PULMONARY: No shortness of breath, no cough, GASTROINTESTINAL: No diarrhea, no nausea, no vomiting, no abdominal pain. NEUROLOGICAL: No headaches, no weakness, PHYSICAL EXAMINATION: GENERAL: The patient is alert and oriented x3, not in any acute distress. Well developed, well nourished. HEENT: Pupils are round and equally reacting to light. EOMI. No scleral icterus. No conjunctival pallor. Normocephalic, atraumatic. No pharyngeal erythema. No thyromegaly. CARDIOVASCULAR: S1 and S2 present. No murmurs, rubs, or gallops. PULMONARY: Chest is clear to auscultation, no wheezing or crackles. ABDOMEN: Laparoscopic surgical incision seen, distended, bruising seen MUSCULOSKELETAL: No joint swelling or deformity. EXTREMITIES: No cyanosis, clubbing, or pedal edema. NEUROLOGICAL: Gross neurological examination did not reveal any focal deficits. SKIN: No rashes. Assessment and plan Acute appendicitis status post laparoscopic appendicectomy Monitor vital signs Monitor CBC Monitor CMP Ordered stat CT abdominal and pelvis Continue pain management per surgery Advance diet per surgery Encourage ambulation Aggressive use of I-S Continue IV Zosyn Gen. surgery is on board Labs and medication were reviewed.. Continue same treatment. Continue with symptomatic treatment. Resume home medication. Monitor labs and vitals. DVT and GI prophylaxis. Further recommendations as per clinical course of the patient Dictation was produced using [employer] dictation software. please excuse any grammatical, word or spelling errors. Objective - Vital Signs Vital signs: Vital Signs Temp 98.5 F 12/25/22 07:20 Pulse 93 12/25/22 07:20 Resp 18 12/25/22 07:20 BP 124/65 12/25/22 07:20 Pulse Ox 93 L 12/25/22 07:20 FiO2 Intake & Output 12/24/22 12/25/22 12/25/22 18:59 06:59 18:59 Output Total 600 271 Balance -600 -271 Output: Urine 600 271 Other: Voiding Method Indwelling Catheter Indwelling Catheter - Labs CBC & Chem 7: 12/25/22 05:59 12/25/22 05:59 Labs: Abnormal Lab Results - Last 24 Hours (Table) 12/25/22 Range/Units 05:59 RBC 2.51 L (4.40-5.60) X 10*6/uL Hgb 7.8 L (13.0-17.0) d/dL Hct 24.7 L (39.6-50.0) % MCV 98.4 H (80.0-97.0) FL MCHC 31.6 L (32.0-37.0) d/dL Microbiology - Last 24 Hours (Table) 12/22/22 15:51 Blood Culture - Preliminary Blood 12/22/22 15:35 Blood Culture - Preliminary Blood
[2022-12-25 15:29] LABS: HGB 8.1 gm/dL (13.0-17.5); MCH 32.8 pg (25.0-35.0); MCHC 33.6 g/dL (31.0-37.0); MCV 97.6 fL (80.0-100.0); Mean Platelet Volume 8.6; Platelet Count 196 k/uL (150-450); RBC 2.45 m/uL (4.30-5.90); RDW 13.7 % (11.5-15.5); WBC 7.2 k/uL (3.8-10.6)
--- NOTE | 2022-12-25 16:31 | XR ---
EXAMINATION TYPE: XR chest 1V confirm line plcpa DATE OF EXAM: 12/25/2022 4:25 PM CLINICAL INDICATION:Male, 67 years old with history of NG tube placement. COMPARISON: Radiograph 12/28/2011. TECHNIQUE: Frontal view of the chest. FINDINGS: Lungs/Pleura: Trace left pleural effusion is identified. Subsegmental atelectasis is noted in the ezequiel g bases. No evidence of pneumothorax Pulmonary vascularity: Unremarkable. Heart/mediastinum: Cardiomediastinal silhouette is unremarkable. Musculoskeletal: No acute osseous pathology. Other: Dilated loops of small bowel are noted throughout the abdomen. Lines/Tubes: Nasogastric tube with its distal tip and side-port projecting under the diaphragm. IMPRESSION: 1. Appropriately positioned enteric tube. 2. Dilated loops of small bowel within the abdomen. 3. Trace left pleural effusion.
[2022-12-25] MEDS ORDERED: BENZOCAINE SPRAY 1 CAN MUCOUS MEM PRN (16:44)
[2022-12-26 00:42] LABS: HCT 23.3 % (39.0-53.0); HGB 7.5 gm/dL (13.0-17.5); MCH 31.5 pg (25.0-35.0); MCHC 32.3 g/dL (31.0-37.0); MCV 97.4 fL (80.0-100.0); Mean Platelet Volume 9.5; Platelet Count 195 k/uL (150-450); RBC 2.39 m/uL (4.30-5.90); RDW 13.7 % (11.5-15.5); WBC 6.2 k/uL (3.8-10.6)
[2022-12-26] MEDS: PIPERACILLIN-TAZOBACTAM 3.375 GM in SODIUM CHLORIDE 0.9% 100 ML IVPB SCH ×2 (08:24→17:31)
[2022-12-26] MEDS: TAMSULOSIN 0.4 MG CAP.ER.24H PO SCH (08:24)
--- NOTE | 2022-12-26 15:01 | P.PN ---
Subjective Progress Note Date: 12/26/22 CHIEF COMPLAINT: Acute appendicitis HISTORY OF PRESENT ILLNESS: Patient is postop day #3 status post laparoscopic appendectomy. Patient sitting in bedside chair. He reports his pain is controlled. Every rates his pain about a 3 out of 10. He denies any flatus. He had issues with urinary retention and has Harrington catheter in place. Afebrile. Vitals stable. WBC is 6.2 hemoglobin 7.5 platelets 195, computed tomography scan abdomen and mixed density fluid thrill abdomen compatible with hemoperitone um. findings compatible with recent appendectomy with hemorrhage. There is associated likely reactive ileus and/or partial obstruction with multiple dilated loops of small bowel throughout the abdomen. No free air visualized. Right lower lung airspace consolidation. Correlate for aspiration and/or pneumonia. Patient needs an NG tube came out earlier this morning. NG tube was placed yesterday with 1400 mL output. PHYSICAL EXAM: VITAL SIGNS: Reviewed. GENERAL: Well-developed in no acute distress. ABDOMEN: Soft. Nondistended. Incision sites clean dry and intact NEUROLOGIC: Alert and oriented. Cranial nerves II through XII grossly intact. ASSESSMENT: 1. Acute appendicitis status post laparoscopic appendectomy 2. Hemoperitoneum 3. Possible ileus PLAN: -Okay to keep NG tube out -Keep patient nothing by mouth -ok to ambulate -Encouraged patient to use incentive spirometer -Continue antibiotics -Continue to monitor -SCDs for DVT prophylaxis Physician Service Observer Chief note has been reviewed by physician. Signing provider agrees with the documented findings, assessment, and plan of care. Objective - Vital Signs Vital signs: Vital Signs Temp 99.8 F H 12/26/22 07:55 Pulse 99 12/26/22 07:55 Resp 18 12/26/22 07:55 BP 122/74 12/26/22 07:55 Pulse Ox 90 L 12/26/22 07:55 FiO2 Intake & Output 12/25/22 12/26/22 12/26/22 18:59 06:59 18:59 Intake Total 100 Output Total 1950 725 Balance -1850 -725 Intake: Intake, IV Titration 100 Amount Piperacillin-Tazobactam 3 100 .375 gm In Sodium Chloride 0.9% 100 ml @ 25 mls/hr IVPB Q8HR BUTCH Rx# :[id number] Output: Gastric Drainage 1400 Urine 550 725 Other: Voiding Method Indwelling Catheter Indwelling Catheter # Voids 0 - Labs CBC & Chem 7: 12/26/22 00:19 12/25/22 05:59 Labs: Abnormal Lab Results - Last 24 Hours (Table) 12/25/22 12/25/22 12/26/22 Range/Units 05:59 15:05 00:19 RBC 2.45 L 2.39 L (4.30-5.90) m/uL Hgb 8.1 L 7.5 L (13.0-17.5) gm/dL Hct 24.0 L 23.3 L (39.0-53.0) % BUN/Creatinine Ratio 27.33 H (12.00-20.00) Ratio Calcium 8.5 L (8.7-10.3) mg/dL AST 13 L (14-35) U/L Alkaline Phosphatase 37 L (41-126) U/L Total Protein 5.1 L (6.2-8.2) d/dL Albumin 3.2 L (3.8-4.9) d/dL Microbiology - Last 24 Hours (Table) 12/22/22 15:51 Blood Culture - Preliminary Blood 12/22/22 15:35 Blood Culture - Preliminary Blood
--- NOTE | 2022-12-26 15:55 | CDI ---
Documentation Clarification Form Date: 12/26/2022 From: Rebeka Ohara Phone: [phone] Admit Date: 12/22/2022 03:39:00 PM Patient Name: Ld Rob Visit Number: [id number] ATTENTION: The Clinical Documentation Specialists (CDI) and [facility] Coding Staff appreciate your assistance in clarifying documentation. Please respond to the clarification below the line at the bottom and electronically sign. The CDI & [facility] Coding staff will review the response and follow-up if needed. Please note: Queries are made part of the Legal Health Record. If you have any questions, please contact the author of this message via ITS. Dr. Curry Barraza Your patient has a hemoglobin/hematocrit level of 10.1/31.1 on 12/23. Please clarify if there is an additional diagnosis and/or clinical significance related to these lab values. History/Risk Factors: 67yo presented with acute appendicitis and underwent a laparoscopic appendectomy on 12/22. Hgb/Hct on admission was 15.7/47.1. Clinical indicators: Per the record, the patient stood up to go to the bathroom and had significant bleeding at his top incision site. CT A/P 12/25: New mixed density fluid throughout the abdomen compatible with hemoperitoneum Hgb/Hct: 12/23 @ 0059 10.1/31.1, 12/23 @ 0550 11.0/34.5, 12/24 @ 0702 9.0/26.8, 12/25 @ 0559 7.8/24.7 Treatment: Is there an additional diagnosis and/or clinical significance related to the above lab result/information: [ ] Acute blood loss anemia [ ] No additional diagnosis/Not clinically significant [ ] Unable to determine [ ] Other, please specify (Template Last Revised: May 2022) *answered in subsequent PN MTDD
--- NOTE | 2022-12-26 17:31 | P.PN ---
Progress Note - Text Progress Note Date: 12/26/22 Hospital course: patient is a 67-year-old gentleman with no significant past medical history who presented to the ER for right lower quadrant abdominal pain. Patient was sent in from urgent care. Patient has been having this abdominal pain for the last few days, intermittent, nonradiating. Denies any fever or chills. Was having nausea but no vomiting. Because of abdominal pain, he was referred to ER for suspicion of acute appendicitis Initial lab work done in the ER showed WBC 10.3, hemoglobin 15.7, platelet, 91, sodium 136, potassium 4.4, BUN 15, creatinine 0.85, bilirubin 1.5 CT abdominal and pelvis done showed severe inflammatory changes in right lower quadrant most likely on the basis of acute appendicitis. Patient was admitted to surgery service, patient underwent left pubic appendicectomy. Postoperative medical team consulted 12/24. Patient seen and examined. Patient has a Harrington in place. Passing gas. 12/25. Patient seen and examined. Blood work done this morning showed WBC 8.1, hemoglobin 7.8, platelet count 219. Complaining of abdominal distention. CT abdominal and pelvis ordered December 26: I assumed care of the patient today. NG tube accidentally fell out. Patient is nothing by mouth. No flatus. Has a Harrington catheter. While abdominal pain. Discussed with the patient increase activity. Chewing gum ordered. Active Medications Acetaminophen (Acetaminophen Tab 325 Mg Tab) 650 mg PO Q4H PRN PRN Reason: Pain Hydrocodone Bitart/Acetaminophen (Hydrocodone/Apap 5-325mg 1 Each Tab) 1 each PO Q4HR PRN PRN Reason: Pain Last Admin: 12/25/22 08:41 Dose: 1 each Benzocaine (Benzocaine [place] 1 Can) 1 spray MUCOUS MEM QID PRN; Protocol PRN Reason: Mouth Irritation Hydromorphone HCl (Hydromorphone 0.5 Mg/0.5 Ml Syringe) 0.5 mg IVP Q4H PRN PRN Reason: Pain Last Admin: 12/22/22 20:48 Dose: 0.5 mg Hydromorphone HCl (Hydromorphone 1 Mg/Ml 1 Ml Syringe) 1 mg IVP Q4HR PRN PRN Reason: Severe Pain (Scale 7 to 10) Piperacillin Sod/Tazobactam (Sod 3.375 gm/ Sodium Chloride) 100 mls @ 25 mls/hr IVPB Q8HR [facility]; Protocol Last Admin: 12/26/22 08:24 Dose: 25 mls/hr Sodium Chloride (Saline 0.9%) 1,000 mls @ 100 mls/hr IV .Q10H [facility] Naloxone HCl (Naloxone 0.4 Mg/Ml 1 Ml Vial) 0.2 mg IV Q2M PRN PRN Reason: Opioid Reversal Ondansetron HCl (Ondansetron 4 Mg/2 Ml Vial) 4 mg IVP Q9H PRN PRN Reason: Nausea Ondansetron HCl (Ondansetron 4 Mg/2 Ml Vial) 4 mg IVP Q6HR PRN PRN Reason: Nausea And Vomiting Last Admin: 12/25/22 14:30 Dose: 4 mg Tamsulosin HCl (Tamsulosin 0.4 Mg Cap.Er.24h) 0.4 mg PO PC-BRKFST [facility] Last Admin: 12/26/22 08:24 Dose: 0.4 mg On examination: VITAL SIGNS: [98.4, 77, 18, 111/71, 94% room air] GENERAL APPEARANCE: BMI 30.6, sitting up in a chair awake comfortable. HEENT: Normal external appearance of nose and ear. Oral cavity normal EYES: Pupils equal. Conjunctiva normal. NECK: JVD not raised. Mass not palpable. RESPIRATORY: Respiratory effort normal. Lungs clear to auscultation. CARDIOVASCULAR: First and second sounds normal. No edema. ABDOMEN: Soft. Liver and spleen not palpable. Mild tenderness. No mass palpable. Dressing over incision site. Diminished breath sounds PSYCHIATRY: Alert and oriented x3. Mood and affect normal. INVESTIGATIONS, reviewed in the clinical context: December 26: White count 6.2 hemoglobin 7.5 platelets 195 Admission labs: White count 11.4 hemoglobin 11 platelets 200 potassium 5.2 creatinine 1.0 Assessment and plan -Acute appendicitis status post laparoscopic appendicectomy-on 12/22/2022 -Clinically, postop ileus. NG tube accidentally fell out today. No flatus today. Nothing by mouth. Chewing gum ordered. Increase activity. -Acute postprocedure blood loss anemia. IV Ferrlecit 2 doses -Hypoalbuminemia, reactive -Primary osteoarthritis Pain medications as needed 2 -BPH Harrington catheter. Flomax. Discussed with patient. Increase activity. Chewing gum ordered. IV fluids.
[2022-12-26 17:36] LABS: HCT 24.8 % (39.6-50.0); HGB 7.7 d/dL (13.0-17.0); MCH 31.7 pg (27.0-32.0); MCV 102.1 FL (80.0-97.0); Mean Platelet Volume 11.2 FL (9.5-12.2); NRBC Per 100 WBC 0.09 X 10*3/uL (0.00-0.01); Platelet Count 197 X 10*3/uL (140-440); RBC 2.43 X 10*6/uL (4.40-5.60); RDW 13.7 % (11.5-14.5); WBC 6.41 X 10*3/uL (4.50-10.00)
[2022-12-26] MEDS: HYDROmorphone 0.5 MG/0.5 ML SYRINGE IVP PRN (21:47)
[2022-12-26] MEDS: ONDANSETRON 4 MG/2 ML VIAL IVP PRN (21:47)
[2022-12-26] MEDS: SODIUM FERRIC GLUCONAT-SUCROSE 125 MG in SODIUM CHLORIDE 0.9% 100 ML IVPB SCH (21:48)
[2022-12-26] MEDS: SODIUM CHLORIDE 0.9% 1,000 ML IV SCH (21:57)
[2022-12-27] MEDS: PIPERACILLIN-TAZOBACTAM 3.375 GM in SODIUM CHLORIDE 0.9% 100 ML IVPB SCH ×4 (00:24→23:52)
[2022-12-27] MEDS: SODIUM CHLORIDE 0.9% 1,000 ML IV SCH ×2 (06:04→20:42)
[2022-12-27] MEDS: ONDANSETRON 4 MG/2 ML VIAL IVP PRN (07:00)
[2022-12-27 07:51] LABS: HCT 24.5 % (39.0-53.0); Hypochromasia Slight; MCH 32.3 pg (25.0-35.0); MCHC 32.6 g/dL (31.0-37.0); Mean Platelet Volume 9.1; Platelet Count 234 k/uL (150-450); RBC 2.47 m/uL (4.30-5.90); RDW 13.8 % (11.5-15.5); WBC 7.1 k/uL (3.8-10.6)
[2022-12-27] MEDS: TAMSULOSIN 0.4 MG CAP.ER.24H PO SCH (08:41)
--- NOTE | 2022-12-27 12:38 | P.PN ---
Subjective Progress Note Date: 12/27/22 CHIEF COMPLAINT: Acute appendicitis HISTORY OF PRESENT ILLNESS: Patient is postop day #4 status post laparoscopic appendectomy. Patient had complained of feeling more bloated with abdominal discomfort and nausea. He had been up and ambulating. Patient then started having a large amount of emesis. Patient then had small bowel movement and flatus after emesis. Since then he reports that the abdominal discomfort and bloating has improved. And he is no longer feeling nauseated. Afebrile. WBC 7.1 hgb stable at 8.0 platelets 234 PHYSICAL EXAM: VITAL SIGNS: Reviewed. GENERAL: Well-developed in no acute distress. ABDOMEN: Soft. Exam prior to emesis and BM. Abdomen was distended. Incision sites with dried blood and bruising. NEUROLOGIC: Alert and oriented. Cranial nerves II through XII grossly intact. ASSESSMENT: 1. Acute appendicitis status post laparoscopic appendectomy 2. Hemoperitoneum 3. Possible ileus PLAN: -Reglan added for nausea and Ileus -Keep patient nothing by mouth -Continue IV antibiotics -Encourage patient to ambulate -Encouraged patient to use incentive spirometer -Repeat CBC in a.m. -SCDs for DVT prophylaxis Physician Cash Person note has been reviewed by physician. Signing provider agrees with the documented findings, assessment, and plan of care. Objective - Vital Signs Vital signs: Vital Signs Temp 99.3 F 12/27/22 07:20 Pulse 98 12/27/22 07:20 Resp 15 12/27/22 07:20 BP 112/65 12/27/22 07:20 Pulse Ox 91 L 12/27/22 07:20 FiO2 Intake & Output 12/26/22 12/27/22 12/27/22 18:59 06:59 18:59 Output Total 1200 400 400 Balance -1200 -400 -400 Output: Urine 1200 400 400 Uretheral (Harrington) 400 Other: Voiding Method Indwelling Catheter Indwelling Catheter # Voids 0 1 - Labs CBC & Chem 7: 12/27/22 07:28 12/25/22 05:59 Labs: Abnormal Lab Results - Last 24 Hours (Table) 12/26/22 12/27/22 Range/Units 09:17 07:28 RBC 2.43 L 2.47 L (4.40-5.60) X 10*6/uL Hgb 7.7 L 8.0 L (13.0-17.0) d/dL Hct 24.8 L 24.5 L (39.6-50.0) % MCV 102.1 H (80.0-97.0) FL MCHC 31.0 L (32.0-37.0) d/dL NRBC/100 WBC Diff 0.09 H (0.00-0.01) X 10*3/uL
--- NOTE | 2022-12-27 13:31 | P.PN ---
Progress Note - Text Progress Note Date: 12/27/22 Hospital course: patient is a 67-year-old gentleman with no significant past medical history who presented to the ER for right lower quadrant abdominal pain. Patient was sent in from urgent care. Patient has been having this abdominal pain for the last few days, intermittent, nonradiating. Denies any fever or chills. Was having nausea but no vomiting. Because of abdominal pain, he was referred to ER for suspicion of acute appendicitis Initial lab work done in the ER showed WBC 10.3, hemoglobin 15.7, platelet, 91, sodium 136, potassium 4.4, BUN 15, creatinine 0.85, bilirubin 1.5 CT abdominal and pelvis done showed severe inflammatory changes in right lower quadrant most likely on the basis of acute appendicitis. Patient was admitted to surgery service, patient underwent left pubic appendicectomy. Postoperative medical team consulted 12/24. Patient seen and examined. Patient has a Harrington in place. Passing gas. 12/25. Patient seen and examined. Blood work done this morning showed WBC 8.1, hemoglobin 7.8, platelet count 219. Complaining of abdominal distention. CT abdominal and pelvis ordered December 26: I assumed care of the patient today. NG tube accidentally fell out. Patient is nothing by mouth. No flatus. Has a Harrington catheter. While abdominal pain. Discussed with the patient increase activity. Chewing gum ordered. December 27: Patient has been up to the bathroom. Have a bowel movement. No nausea vomiting. Remains nothing by mouth. No abdominal bloating or pain. Seen by surgery. Continue current treatment. Active Medications Acetaminophen (Acetaminophen Tab 325 Mg Tab) 650 mg PO Q4H PRN PRN Reason: Pain Hydrocodone Bitart/Acetaminophen (Hydrocodone/Apap 5-325mg 1 Each Tab) 1 each PO Q4HR PRN PRN Reason: Pain Last Admin: 12/25/22 08:41 Dose: 1 each Benzocaine (Benzocaine [place] 1 Can) 1 spray MUCOUS MEM QID PRN; Protocol PRN Reason: Mouth Irritation Hydromorphone HCl (Hydromorphone 0.5 Mg/0.5 Ml Syringe) 0.5 mg IVP Q4H PRN PRN Reason: Pain Last Admin: 12/26/22 21:47 Dose: 0.5 mg Hydromorphone HCl (Hydromorphone 1 Mg/Ml 1 Ml Syringe) 1 mg IVP Q4HR PRN PRN Reason: Severe Pain (Scale 7 to 10) Piperacillin Sod/Tazobactam (Sod 3.375 gm/ Sodium Chloride) 100 mls @ 25 mls/hr IVPB Q8HR [facility]; Protocol Last Admin: 12/27/22 08:41 Dose: 25 mls/hr Sodium Chloride (Saline 0.9%) 1,000 mls @ 100 mls/hr IV .Q10H [facility] Last Admin: 12/27/22 06:04 Dose: Not Given Metoclopramide HCl (Metoclopramide 5 Mg/Ml 2 Ml Vial) 10 mg IVP Q6H [facility] Naloxone HCl (Naloxone 0.4 Mg/Ml 1 Ml Vial) 0.2 mg IV Q2M PRN PRN Reason: Opioid Reversal Ondansetron HCl (Ondansetron 4 Mg/2 Ml Vial) 4 mg IVP Q9H PRN PRN Reason: Nausea Ondansetron HCl (Ondansetron 4 Mg/2 Ml Vial) 4 mg IVP Q6HR PRN PRN Reason: Nausea And Vomiting Last Admin: 12/27/22 07:00 Dose: 4 mg Tamsulosin HCl (Tamsulosin 0.4 Mg Cap.Er.24h) 0.4 mg PO PC-BRKFST [facility] Last Admin: 12/27/22 08:41 Dose: 0.4 mg On examination: VITAL SIGNS: [99.3, 98, 15, 112/65, 91% room air] GENERAL APPEARANCE: BMI 30.6, sitting up in a chair awake comfortable. HEENT: Normal external appearance of nose and ear. Oral cavity normal EYES: Pupils equal. Conjunctiva normal. NECK: JVD not raised. Mass not palpable. RESPIRATORY: Respiratory effort normal. Lungs clear to auscultation. CARDIOVASCULAR: First and second sounds normal. No edema. ABDOMEN: Soft. Liver and spleen not palpable. Mild tenderness. No mass palpable. Dressing over incision site. Diminished bowel sounds PSYCHIATRY: Alert and oriented x3. Mood and affect normal. INVESTIGATIONS, reviewed in the clinical context: December 27: White count 7.1 hemoglobin 8 platelets 234 December 26: White count 6.2 hemoglobin 7.5 platelets 195 Admission labs: White count 11.4 hemoglobin 11 platelets 200 potassium 5.2 creatinine 1.0 Assessment and plan -Acute appendicitis status post laparoscopic appendicectomy-on 12/22/2022 -Clinically, postop ileus. NG tube is out. Did have a small BM today.. Follow with surgery -Acute postprocedure blood loss anemia. IV Ferrlecit 2 doses -Hypoalbuminemia, reactive -Primary osteoarthritis Pain medications as needed 2 -BPH Harrington catheter. Flomax. Discussed with patient. Dr. Barraza. Nothing by mouth. Continue IV fluids. Increase activity.
[2022-12-27] MEDS: SODIUM FERRIC GLUCONAT-SUCROSE 125 MG in SODIUM CHLORIDE 0.9% 100 ML IVPB SCH (14:22)
[2022-12-27] MEDS: METOCLOPRAMIDE 5 MG/ML 2 ML VIAL IVP SCH ×3 (17:02→23:20)
[2022-12-28] MEDS: SODIUM CHLORIDE 0.9% 1,000 ML IV SCH ×3 (01:48→22:41)
[2022-12-28] MEDS: METOCLOPRAMIDE 5 MG/ML 2 ML VIAL IVP SCH ×4 (05:12→23:12)
[2022-12-28] MEDS: PIPERACILLIN-TAZOBACTAM 3.375 GM in SODIUM CHLORIDE 0.9% 100 ML IVPB SCH ×3 (08:20→23:12)
[2022-12-28] MEDS: TAMSULOSIN 0.4 MG CAP.ER.24H PO SCH (08:25)
[2022-12-28 09:51] LABS: Basophils % (A) 0 %; Eosinophils # (A) 0.1 k/uL (0-0.7); Eosinophils % (A) 1 %; HCT 27.1 % (39.0-53.0); HGB 8.6 gm/dL (13.0-17.5); Hypochromasia Moderate; Lymphocytes # (A) 0.8 k/uL (1.0-4.8); Lymphocytes % (A) 12 %; MCH 32.1 pg (25.0-35.0); MCHC 31.6 g/dL (31.0-37.0); MCV 101.5 fL (80.0-100.0); Macrocytosis Slight; Mean Platelet Volume 9.1; Monocytes # (A) 0.4 k/uL (0-1.0); Monocytes % (A) 5 %; Neutrophils # (A) 5.5 k/uL (1.3-7.7); Neutrophils % (A) 80 %; Platelet Count 264 k/uL (150-450); RBC 2.67 m/uL (4.30-5.90); RDW 14.6 % (11.5-15.5); WBC 6.9 k/uL (3.8-10.6)
--- NOTE | 2022-12-28 11:19 | P.PN ---
Subjective Progress Note Date: 12/28/22 CHIEF COMPLAINT: Acute appendicitis HISTORY OF PRESENT ILLNESS: Patient is postop day #5 status post laparoscopic appendectomy. Patient vomited again during the night and again this morning. He reports that he is feeling more bloated. He rates his pain about a 3 out of 10 which is similar to yesterday. He has had a small amount of flatus. No further bowel movements. Patient had urinary retention Harrington catheter had to be reinserted. Afebrile. Mildly tachycardic. WBC 6.9 Hgb 8.6 platelets 264 PHYSICAL EXAM: VITAL SIGNS: Reviewed. GENERAL: Well-developed in no acute distress. ABDOMEN: Soft. Abdomen mildly distended. Incision sites with dried blood and bruising. NEUROLOGIC: Alert and oriented. Cranial nerves II through XII grossly intact. ASSESSMENT: 1. Acute appendicitis status post laparoscopic appendectomy 2. Hemoperitoneum 3. Ileus 4. Urinary retention PLAN: -Keep patient nothing by mouth -Continue antiemetics -Continue Reglan -Encouraged patient to ambulate and use incentive spirometer -Continue IV antibiotics -Continue IV fluids -Repeat labs in a.m. -Continue Flomax for urinary retention -SCDs for DVT prophylaxis Physician Rotary Shear Worker Helper note has been reviewed by physician. Signing provider agrees with the documented findings, assessment, and plan of care. Objective - Vital Signs Vital signs: Vital Signs Temp 98.4 F 12/28/22 07:02 Pulse 118 H 12/28/22 07:02 Resp 14 12/28/22 07:02 BP 118/66 12/28/22 07:02 Pulse Ox 94 L 12/28/22 07:02 FiO2 Intake & Output 12/27/22 12/28/22 12/28/22 18:59 06:59 18:59 Output Total 800 600 Balance -800 -600 Output: Urine 800 600 Straight 400 600 Uretheral (Harrington) 400 Other: # Voids 0 # Bowel Movements 1 - Labs CBC & Chem 7: 12/28/22 09:38 12/25/22 05:59 Labs: Abnormal Lab Results - Last 24 Hours (Table) 12/28/22 Range/Units 09:38 RBC 2.67 L (4.30-5.90) m/uL Hgb 8.6 L (13.0-17.5) gm/dL Hct 27.1 L (39.0-53.0) % MCV 101.5 H (80.0-100.0) fL Lymphocytes # 0.8 L (1.0-4.8) k/uL Microbiology - Last 24 Hours (Table) 12/22/22 15:51 Blood Culture - Final Blood 12/22/22 15:35 Blood Culture - Final Blood
[2022-12-28 14:06] VITALS: BMI 30.5
--- NOTE | 2022-12-28 14:38 | CDI ---
Documentation Clarification Form Date: 12/28/2022 From: Rebeka Ohara Phone: [phone] Admit Date: 12/22/2022 03:39:00 PM Patient Name: Ld Rob Visit Number: [id number] ATTENTION: The Clinical Documentation Specialists (CDI) and [facility] Coding Staff appreciate your assistance in clarifying documentation. Please respond to the clarification below the line at the bottom and electronically sign. The CDI & [facility] Coding staff will review the response and follow-up if needed. Please note: Queries are made part of the Legal Health Record. If you have any questions, please contact the author of this message via ITS. Dr. Curry Barraza Clinically, postop ileus is documented in the IM PNs on 12/26 and 12/27. Additional clarification is requested regarding the relationship, if any, that exists between the diagnosis and the procedure. Patients Admitting Diagnosis: Acute appendicitis Post-Operative Diagnosis: Acute appendicitis Procedure performed 12/22: Laparoscopic appendectomy History/Risk Factors: 67yo presented with abd pain in the RLQ. An abd xray taken in the ER noted prior to the procedure noted diffuse dilated small bowel likely reactive secondary to the right lower quadrant inflammatory process and representing ileus correlate clinically Clinical Indicators: The patient developed a hemoperitoneum after the procedure. IM PN on 12/26 noted the abdomen was distended, pt denied flatus or bowel movement. Abd x-ray 12/25: New mixed density fluid throughout the abdomen compatible with hemoperitoneum. Findings compatible with recent appendectomy with hemorrhage. There is associated likely reactive ileus and/or partial obstruction with multiple dilated loops of small bowel throughout the abdomen Treatment: NG tube, gum, ambulation, monitoring, Reglan IV, NPO Consults: What relationship, if any, exists between the diagnosis of postop ileus and the procedure: [ ] is a complication of surgical procedure [ ] is an expected outcome of the surgical procedure [ ] is related to patients co-morbid condition(s) of acute appendicitis & present on admission [ xxx ] is related to patients co-morbid condition(s) of acute appendicitis and hemoperitoneum & developed during the admission [ ] Other please specify [ ] Unable to determine MTDD
[2022-12-28] MEDS: HYDROmorphone 0.5 MG/0.5 ML SYRINGE IVP PRN (15:55)
--- NOTE | 2022-12-28 20:32 | P.PN ---
Progress Note - Text Progress Note Date: 12/28/22 Hospital course: patient is a 67-year-old gentleman with no significant past medical history who presented to the ER for right lower quadrant abdominal pain. Patient was sent in from urgent care. Patient has been having this abdominal pain for the last few days, intermittent, nonradiating. Denies any fever or chills. Was having nausea but no vomiting. Because of abdominal pain, he was referred to ER for suspicion of acute appendicitis Initial lab work done in the ER showed WBC 10.3, hemoglobin 15.7, platelet, 91, sodium 136, potassium 4.4, BUN 15, creatinine 0.85, bilirubin 1.5 CT abdominal and pelvis done showed severe inflammatory changes in right lower quadrant most likely on the basis of acute appendicitis. Patient was admitted to surgery service, patient underwent left pubic appendicectomy. Postoperative medical team consulted 12/24. Patient seen and examined. Patient has a Harrington in place. Passing gas. 12/25. Patient seen and examined. Blood work done this morning showed WBC 8.1, hemoglobin 7.8, platelet count 219. Complaining of abdominal distention. CT abdominal and pelvis ordered December 26: I assumed care of the patient today. NG tube accidentally fell out. Patient is nothing by mouth. No flatus. Has a Harrington catheter. While abdominal pain. Discussed with the patient increase activity. Chewing gum ordered. December 27: Patient has been up to the bathroom. Have a bowel movement. No nausea vomiting. Remains nothing by mouth. No abdominal bloating or pain. Seen by surgery. Continue current treatment. December 28: Sitting up in a chair. Minimal abdominal pain. No nausea vomiting. Nothing by mouth. Did pass a small amount of flatus. Ambulating. In the hallway Active Medications Acetaminophen (Acetaminophen Tab 325 Mg Tab) 650 mg PO Q4H PRN PRN Reason: Pain Hydrocodone Bitart/Acetaminophen (Hydrocodone/Apap 5-325mg 1 Each Tab) 1 each PO Q4HR PRN PRN Reason: Pain Last Admin: 12/25/22 08:41 Dose: 1 each Benzocaine (Benzocaine [place] 1 Can) 1 spray MUCOUS MEM QID PRN; Protocol PRN Reason: Mouth Irritation Hydromorphone HCl (Hydromorphone 0.5 Mg/0.5 Ml Syringe) 0.5 mg IVP Q4H PRN PRN Reason: Pain Last Admin: 12/28/22 15:55 Dose: 0.5 mg Hydromorphone HCl (Hydromorphone 1 Mg/Ml 1 Ml Syringe) 1 mg IVP Q4HR PRN PRN Reason: Severe Pain (Scale 7 to 10) Piperacillin Sod/Tazobactam (Sod 3.375 gm/ Sodium Chloride) 100 mls @ 25 mls/hr IVPB Q8HR [facility]; Protocol Last Admin: 12/28/22 15:59 Dose: 25 mls/hr Sodium Chloride (Saline 0.9%) 1,000 mls @ 100 mls/hr IV .Q10H [facility] Last Admin: 12/28/22 08:23 Dose: 100 mls/hr Metoclopramide HCl (Metoclopramide 5 Mg/Ml 2 Ml Vial) 10 mg IVP Q6H [facility] Last Admin: 12/28/22 18:10 Dose: 10 mg Naloxone HCl (Naloxone 0.4 Mg/Ml 1 Ml Vial) 0.2 mg IV Q2M PRN PRN Reason: Opioid Reversal Ondansetron HCl (Ondansetron 4 Mg/2 Ml Vial) 4 mg IVP Q6HR PRN PRN Reason: Nausea And Vomiting Last Admin: 12/27/22 07:00 Dose: 4 mg Tamsulosin HCl (Tamsulosin 0.4 Mg Cap.Er.24h) 0.4 mg PO PC-BRKFST [facility] Last Admin: 12/28/22 08:25 Dose: Not Given On examination: VITAL SIGNS: 98.4, 60, 16, 138/69, 96% room air GENERAL APPEARANCE: BMI 30.6, sitting up in a chair awake comfortable. HEENT: Normal external appearance of nose and ear. Oral cavity normal EYES: Pupils equal. Conjunctiva normal. NECK: JVD not raised. Mass not palpable. RESPIRATORY: Respiratory effort normal. Lungs clear to auscultation. CARDIOVASCULAR: First and second sounds normal. No edema. ABDOMEN: Soft. Liver and spleen not palpable. Minimal tenderness. No mass palpable. Dressing over incision site. Sluggish bowel sounds PSYCHIATRY: Alert and oriented x3. Mood and affect normal. INVESTIGATIONS, reviewed in the clinical context: December 28: White count 6.9 hemoglobin 8.6 platelets 264 December 27: White count 7.1 hemoglobin 8 platelets 234 December 26: White count 6.2 hemoglobin 7.5 platelets 195 Admission labs: White count 11.4 hemoglobin 11 platelets 200 potassium 5.2 creatinine 1.0 Assessment and plan -Acute appendicitis status post laparoscopic appendicectomy-on 12/22/2022 -Clinically, postop ileus. NG tube is out. Small flatus today... Follow with surgery Nothing by mouth -Acute postprocedure blood loss anemia. IV Ferrlecit 2 doses -Hypoalbuminemia, reactive -Primary osteoarthritis Pain medications as needed 2 -BPH Harrington catheter. Flomax. Discussed with patient. Dr. Barraza. Nothing by mouth. IV fluids.
[2022-12-29] MEDS: HYDROmorphone 0.5 MG/0.5 ML SYRINGE IVP PRN (00:08)
[2022-12-29] MEDS: METOCLOPRAMIDE 5 MG/ML 2 ML VIAL IVP SCH ×4 (05:10→21:55)
[2022-12-29] MEDS: SODIUM CHLORIDE 0.9% 1,000 ML IV SCH ×2 (05:13→15:48)
[2022-12-29 07:37] LABS: Ionized Calcium 4.6 mg/dL (4.5-5.3)
[2022-12-29 07:40] LABS: ALT 21 U/L (4-49); AST 41 U/L (17-59); African American GFR (CKD) >90 (>60 ml/min/1.73 sqM); Albumin 2.7 g/dL (3.5-5.0); Albumin/Globulin Ratio 1.1; Alkaline Phosphatase 36 U/L (38-126); Blood Urea Nitrogen 23 mg/dL (9-20); Calcium 8.1 mg/dL (8.4-10.2); Carbon Dioxide 26 mmol/L (22-30); Globulin 2.5 g/dL; Glucose 107 mg/dL (74-99); Magnesium 2.4 mg/dL (1.6-2.3); Non-African American GFR(CKD) >90 (>60 ml/min/1.73 sqM); Phosphorus 3.5 mg/dL (2.5-4.5); Total Bilirubin 3.3 mg/dL (0.2-1.3); Total Protein 5.2 g/dL (6.3-8.2)
[2022-12-29 07:43] LABS: Anion Gap 5 mmol/L; Chloride 115 mmol/L (98-107); Potassium 3.9 mmol/L (3.5-5.1); Sodium 146 mmol/L (137-145)
[2022-12-29] MEDS: PIPERACILLIN-TAZOBACTAM 3.375 GM in SODIUM CHLORIDE 0.9% 100 ML IVPB SCH ×2 (08:17→18:20)
[2022-12-29] MEDS: TAMSULOSIN 0.4 MG CAP.ER.24H PO SCH (08:17)
[2022-12-29 11:04] LABS: HGB 7.5 d/dL (13.0-17.0); MCH 31.3 pg (27.0-32.0); MCV 104.2 FL (80.0-97.0); Mean Platelet Volume 10.9 FL (9.5-12.2); NRBC Per 100 WBC 0.08 X 10*3/uL (0.00-0.01); Platelet Count 274 X 10*3/uL (140-440); RDW 14.7 % (11.5-14.5); WBC 7.47 X 10*3/uL (4.50-10.00)
--- NOTE | 2022-12-29 11:54 | P.PN ---
Subjective Progress Note Date: 12/29/22 CHIEF COMPLAINT: Acute appendicitis HISTORY OF PRESENT ILLNESS: Patient is postop day #6 status post laparoscopic appendectomy. Patient vomited again during the night and again this morning. Patient has been up and ambulating this morning. He is having a small amount of flatus. No bowel movements. He did have a couple episodes of emesis last night. Did require a dose of Dilaudid last night for pain. He reports decrease in the abdominal bloating. He is rating his pain about 3 out of 10. Afebrile. Tachycardia resolved. WBC is 7.47 Hgb down from 8.6-7.5 sodium 146 creatinine 0.68 PHYSICAL EXAM: VITAL SIGNS: Reviewed. GENERAL: Well-developed in no acute distress. ABDOMEN: Soft. Abdomen mildly distended. Incision sites with dried blood and bruising. NEUROLOGIC: Alert and oriented. Cranial nerves II through XII grossly intact. ASSESSMENT: 1. Acute appendicitis status post laparoscopic appendectomy 2. Hemoperitoneum 3. Ileus 4. Urinary retention PLAN: -Patient is scheduled for PICC line placement today and to start TPN -Keep patient nothing by mouth -Continue antiemetics -Continue Reglan -Encouraged patient to ambulate and use incentive spirometer -Continue IV antibiotics -Continue IV fluids -Repeat labs in a.m. -Continue Flomax for urinary retention -SCDs for DVT prophylaxis Physician Packing Machine Inspector note has been reviewed by physician. Signing provider agrees with the documented findings, assessment, and plan of care. Objective - Vital Signs Vital signs: Vital Signs Temp 98.4 F 12/29/22 07:00 Pulse 89 12/29/22 07:00 Resp 20 12/29/22 07:00 BP 122/69 12/29/22 07:00 Pulse Ox 93 L 12/29/22 07:00 FiO2 Intake & Output 12/28/22 12/29/22 12/29/22 18:59 06:59 18:59 Intake Total 625 Output Total 975 Balance 625 -975 Weight 93.894 kg Intake: Intake, IV Titration 625 Amount Lactated Ringers 1,000 ml 0 @ 0 mls/hr IV .[facility] Rx#:[id number] Piperacillin-Tazobactam 3 25 .375 gm In Sodium Chloride 0.9% 100 ml @ 25 mls/hr IVPB Q8HR [facility] Rx# :[id number] Sodium Chloride 0.9% 1, 600 000 ml @ 100 mls/hr IV . Q10H [facility] Rx#:[id number] Output: Urine 975 Other: Voiding Method Indwelling Catheter Indwelling Catheter Indwelling Catheter - Labs CBC & Chem 7: 12/29/22 07:12 12/29/22 07:12 Labs: Abnormal Lab Results - Last 24 Hours (Table) 12/29/22 Range/Units 07:12 Sodium 146 H (137-145) mmol/L Chloride 115 H (98-107) mmol/L BUN 23 H (9-20) mg/dL Glucose 107 H (74-99) mg/dL Calcium 8.1 L (8.4-10.2) mg/dL Magnesium 2.4 H (1.6-2.3) mg/dL Total Bilirubin 3.3 H (0.2-1.3) mg/dL Alkaline Phosphatase 36 L (38-126) U/L Total Protein 5.2 L (6.3-8.2) g/dL Albumin 2.7 L (3.5-5.0) g/dL
[2022-12-29] MEDS ORDERED: LIDOCAINE 1% INJ 10MG/ML (20 ML MDV) SQ ONE (12:03)
--- NOTE | 2022-12-29 13:15 | IR ---
PICC LINE PLACEMENT: HISTORY: Infection requiring long-term antibiotic therapy PROCEDURE: Ultrasound and fluoroscopic guidance of PICC line placement. COMPLICATIONS: None ANESTHESIA: 1. 1% Lidocaine locally. FINDINGS/TECHNIQUE: The procedure was explained to the patient. The risks, complications, benefits and alternatives were discussed and any questions were answered. Informed consent was obtained. The patient was placed supine on the fluoroscopic table and prepped and draped in the usual sterile fash ion. Utilizing a 21 gauge needle and sonographic and fluoroscopic guidance, access in the left basi lic vein was achieved and there is placement of a 0.018 guidewire. The vein is patent. A 4-F sheath was placed over the guidewire. The guidewire and dilator were removed and a 4-F. PICC line was plac ed through the sheath with the tip at the level of the SVC. The sheath was removed, the catheter was flushed and sutured into position. The patient was stable throughout the procedure and remained sta ble upon discharge from the Department of Radiology. The vein puncture was patent under ultrasound. A quintana scale image was obtained to document patency of the vein punctured. All elements of the maximal barrier technique were utilized. FLUOROSCOPY TIME: DAP 0.4773Gy cm2 IMPRESSION: Successful PICC line placement under ultrasound and fluoroscopic guidance.
[2022-12-29] MEDS ORDERED: MVI, ADULT NO.4 WITH VIT K 10 ML, TRACE (CONC-1ML/DOSE) 1 ML, CALCIUM GLUCONATE 1 GM, P... IV ONE ×5 (14:00)
[2022-12-29] MEDS: FAT EMULSION 20% 250 ML in EMPTY BAG 1 BAG IV SCH (18:21)
[2022-12-29] MEDS: ONDANSETRON 4 MG/2 ML VIAL IVP PRN (20:29)
[2022-12-29] MEDS: HYDROcodone/APAP 5-325MG 1 EACH TAB PO PRN (20:29)
--- NOTE | 2022-12-29 21:29 | P.PN ---
Progress Note - Text Progress Note Date: 12/29/22 Hospital course: patient is a 67-year-old gentleman with no significant past medical history who presented to the ER for right lower quadrant abdominal pain. Patient was sent in from urgent care. Patient has been having this abdominal pain for the last few days, intermittent, nonradiating. Denies any fever or chills. Was having nausea but no vomiting. Because of abdominal pain, he was referred to ER for suspicion of acute appendicitis Initial lab work done in the ER showed WBC 10.3, hemoglobin 15.7, platelet, 91, sodium 136, potassium 4.4, BUN 15, creatinine 0.85, bilirubin 1.5 CT abdominal and pelvis done showed severe inflammatory changes in right lower quadrant most likely on the basis of acute appendicitis. Patient was admitted to surgery service, patient underwent left pubic appendicectomy. Postoperative medical team consulted 12/24. Patient seen and examined. Patient has a Harrington in place. Passing gas. 12/25. Patient seen and examined. Blood work done this morning showed WBC 8.1, hemoglobin 7.8, platelet count 219. Complaining of abdominal distention. CT abdominal and pelvis ordered December 26: I assumed care of the patient today. NG tube accidentally fell out. Patient is nothing by mouth. No flatus. Has a Harrington catheter. While abdominal pain. Discussed with the patient increase activity. Chewing gum ordered. December 27: Patient has been up to the bathroom. Have a bowel movement. No nausea vomiting. Remains nothing by mouth. No abdominal bloating or pain. Seen by surgery. Continue current treatment. December 28: Sitting up in a chair. Minimal abdominal pain. No nausea vomiting. Nothing by mouth. Did pass a small amount of flatus. Ambulating. In the hallway December 29: Up in a chair. Ambulating. Did have a bout of vomiting last night. Some flatus this morning. Remains nothing by mouth. PICC line placed today. TPN and lipid started. Active Medications Acetaminophen (Acetaminophen Tab 325 Mg Tab) 650 mg PO Q4H PRN PRN Reason: Pain Hydrocodone Bitart/Acetaminophen (Hydrocodone/Apap 5-325mg 1 Each Tab) 1 each PO Q4HR PRN PRN Reason: Pain Last Admin: 12/29/22 20:29 Dose: 1 each Benzocaine (Benzocaine [place] 1 Can) 1 spray MUCOUS MEM QID PRN; Protocol PRN Reason: Mouth Irritation Hydromorphone HCl (Hydromorphone 0.5 Mg/0.5 Ml Syringe) 0.5 mg IVP Q4H PRN PRN Reason: Pain Last Admin: 12/29/22 00:08 Dose: 0.5 mg Hydromorphone HCl (Hydromorphone 1 Mg/Ml 1 Ml Syringe) 1 mg IVP Q4HR PRN PRN Reason: Severe Pain (Scale 7 to 10) Piperacillin Sod/Tazobactam (Sod 3.375 gm/ Sodium Chloride) 100 mls @ 25 mls/hr IVPB Q8HR [facility]; Protocol Last Admin: 12/29/22 18:20 Dose: 25 mls/hr Sodium Chloride (Saline 0.9%) 1,000 mls @ 100 mls/hr IV .Q10H [facility] Last Admin: 12/29/22 15:48 Dose: 100 mls/hr Parenteral Vitamin Supplement 10 ml/ Zinc/Copper/Manganese/Selenium 1 ml/ Calcium Gluconate 1 gm/ Potassium Phosphate 15 mmol/ Amino Acids /Dextrose 1,026 mls @ 30 mls/hr IV .Q24H [facility] Stop: 12/30/22 13:59 Last Admin: 12/29/22 15:47 Dose: 30 mls/hr Parenteral Vitamin Supplement 10 ml/ Zinc/Copper/Manganese/Selenium 1 ml/ Calcium Gluconate 1 gm/ Potassium Phosphate 15 mmol/ Amino Acids /Dextrose 1,026 mls @ 95 mls/hr IV .BY DURATION [facility] Calcium Gluconate 1 gm/Potassium Phosphate 15 mmol/Amino Acids/Dextrose 1,015 mls @ 95 mls/hr IV .BY DURATION [facility] Fat Emulsion Intravenous 250 (ml/ IV Solution) 250 mls @ 21 mls/hr IV MoTh [facility] Last Admin: 12/29/22 18:21 Dose: 21 mls/hr Metoclopramide HCl (Metoclopramide 5 Mg/Ml 2 Ml Vial) 10 mg IVP Q6H [facility] Last Admin: 12/29/22 18:19 Dose: 10 mg Naloxone HCl (Naloxone 0.4 Mg/Ml 1 Ml Vial) 0.2 mg IV Q2M PRN PRN Reason: Opioid Reversal Ondansetron HCl (Ondansetron 4 Mg/2 Ml Vial) 4 mg IVP Q6HR PRN PRN Reason: Nausea And Vomiting Last Admin: 12/29/22 20:29 Dose: 4 mg Tamsulosin HCl (Tamsulosin 0.4 Mg Cap.Er.24h) 0.4 mg PO -BRKFST [facility] Last Admin: 12/29/22 08:17 Dose: Not Given On examination: VITAL SIGNS: 98.2, 85, 16, 140/80, 93% room air GENERAL APPEARANCE: BMI 30.6, sitting up in a chair awake comfortable. HEENT: Normal external appearance of nose and ear. Oral cavity normal EYES: Pupils equal. Conjunctiva normal. NECK: JVD not raised. Mass not palpable. RESPIRATORY: Respiratory effort normal. Lungs clear to auscultation. CARDIOVASCULAR: First and second sounds normal. No edema. ABDOMEN: Soft. Liver and spleen not palpable. Minimal tenderness. No mass palpable. Dressing over incision site. Sluggish bowel sounds PSYCHIATRY: Alert and oriented x3. Mood and affect normal. INVESTIGATIONS, reviewed in the clinical context: December 29: White count 7.4 hemoglobin 7.5 potassium 3.9 creatinine 0.68 December 28: White count 6.9 hemoglobin 8.6 platelets 264 December 27: White count 7.1 hemoglobin 8 platelets 234 December 26: White count 6.2 hemoglobin 7.5 platelets 195 Admission labs: White count 11.4 hemoglobin 11 platelets 200 potassium 5.2 creatinine 1.0 Assessment and plan -Acute appendicitis status post laparoscopic appendicectomy-on 12/22/2022 -Clinically, postop ileus.: Not improving Had NG tube Small flatus today vomited last night. Nothing by mouth -Acute postprocedure blood loss anemia. IV Ferrlecit 2 doses -Hypoalbuminemia, reactive -Primary osteoarthritis Pain medications as needed 2 -BPH Harrington catheter. Flomax. -TPN and lipid started today. -Full code Nothing by mouth. Hyperalimentation started today. Abdominal x-ray in the morning. Continue with activity.
[2022-12-30] MEDS: PIPERACILLIN-TAZOBACTAM 3.375 GM in SODIUM CHLORIDE 0.9% 100 ML IVPB SCH ×4 (00:13→23:45)
[2022-12-30] MEDS: HYDROcodone/APAP 5-325MG 1 EACH TAB PO PRN (02:29)
[2022-12-30] MEDS: SODIUM CHLORIDE 0.9% 1,000 ML IV SCH ×2 (05:09→05:35)
[2022-12-30] MEDS: METOCLOPRAMIDE 5 MG/ML 2 ML VIAL IVP SCH ×4 (05:34→23:45)
[2022-12-30 07:36] LABS: African American GFR (CKD) >90 (>60 ml/min/1.73 sqM); Anion Gap 4 mmol/L; Blood Urea Nitrogen 22 mg/dL (9-20); Calcium 7.9 mg/dL (8.4-10.2); Carbon Dioxide 27 mmol/L (22-30); Chloride 118 mmol/L (98-107); Glucose 110 mg/dL (74-99); Magnesium 2.4 mg/dL (1.6-2.3); Non-African American GFR(CKD) >90 (>60 ml/min/1.73 sqM); Phosphorus 3.4 mg/dL (2.5-4.5); Potassium 3.8 mmol/L (3.5-5.1); Sodium 149 mmol/L (137-145)
[2022-12-30] MEDS: TAMSULOSIN 0.4 MG CAP.ER.24H PO SCH (08:09)
--- NOTE | 2022-12-30 11:25 | P.PN ---
Subjective Progress Note Date: 12/30/22 CHIEF COMPLAINT: Acute appendicitis HISTORY OF PRESENT ILLNESS: Patient is postop day #8 status post laparoscopic appendectomy. Patient reports that he is feeling better today. He did have a bowel movement yesterday. Nausea resolved. He did get his PICC line and his been started on TPN. Afebrile. WBC 7. 47 hgb 7.5 yesterday. CBC for today pending sodium 149 minute potassium 3.8 creatinine 0.71 AXR ordered by medicine service is pending. PHYSICAL EXAM: VITAL SIGNS: Reviewed. GENERAL: Well-developed in no acute distress. ABDOMEN: Soft. Abdomen mildly distended. Incision sites with dried blood and bruising. NEUROLOGIC: Alert and oriented. Cranial nerves II through XII grossly intact. ASSESSMENT: 1. Acute appendicitis status post laparoscopic appendectomy 2. Hemoperitoneum noted on CT. HGB stable 3. Postoperative Ileus secondary to appendicitis 4. Urinary retention with chase in place PLAN: -Start clear liquid diet -Continue TPN for nutrition support -Continue Reglan -Encouraged patient to ambulate and use incentive spirometer -Continue IV antibiotics -Decrease fluids to 50ml/hr -Repeat labs in a.m. -SCDs for DVT prophylaxis Physician Dressmaker Helper note has been reviewed by physician. Signing provider agrees with the documented findings, assessment, and plan of care. Objective - Vital Signs Vital signs: Vital Signs Temp 98.7 F 12/30/22 07:00 Pulse 85 12/30/22 07:00 Resp 16 12/30/22 07:00 BP 119/68 12/30/22 07:00 Pulse Ox 94 L 12/30/22 07:00 FiO2 Intake & Output 12/29/22 12/30/22 12/30/22 18:59 06:59 18:59 Intake Total 1191 Output Total 800 475 Balance -800 716 Weight 93.894 kg Intake: Intake, IV Titration 1191 Amount Fat Emulsion 20% 250 ml 231 In Empty Bag 1 bag @ 21 mls/hr IV [facility] Rx#: [id number] Mvi, Adult No.4 with Vit 360 K 10 ml Trace (Conc-1Ml/ Dose) 1 ml Calcium Gluconate 1 gm Potassium Phosphate 15 mmol In Amino Acids 5 %/Dextrose 20 % 1,000 ml @ 30 mls/hr IV .Q24H [facility] Rx#: [id number] Piperacillin-Tazobactam 3 200 .375 gm In Sodium Chloride 0.9% 100 ml @ 25 mls/hr IVPB Q8HR [facility] Rx# :[id number] Sodium Chloride 0.9% 1, 400 000 ml @ 100 mls/hr IV . Q10H [facility] Rx#:[id number] Output: Urine 700 475 Emesis 100 Other: Voiding Method Indwelling Catheter Indwelling Catheter - Labs CBC & Chem 7: 12/29/22 07:12 12/30/22 05:45 Labs: Abnormal Lab Results - Last 24 Hours (Table) 12/29/22 12/30/22 Range/Units 07:12 05:45 RBC 2.40 L (4.40-5.60) X 10*6/uL Hgb 7.5 L (13.0-17.0) d/dL Hct 25.0 L (39.6-50.0) % MCV 104.2 H (80.0-97.0) FL MCHC 30.0 L (32.0-37.0) d/dL RDW 14.7 H (11.5-14.5) % NRBC/100 WBC Diff 0.08 H (0.00-0.01) X 10*3/uL Sodium 149 H (137-145) mmol/L Chloride 118 H (98-107) mmol/L BUN 22 H (9-20) mg/dL Glucose 110 H (74-99) mg/dL Calcium 7.9 L (8.4-10.2) mg/dL Magnesium 2.4 H (1.6-2.3) mg/dL
--- NOTE | 2022-12-30 11:59 | XR ---
EXAMINATION TYPE: XR abdomen 2V DATE OF EXAM: 12/30/2022 COMPARISON: CT 12/25/2022 INDICATION: Follow-up postop ileus TECHNIQUE: Single view abdomen upright view FINDINGS: There are dilated small bowel loops in the upper abdomen. Air-fluid levels are present. There may be a differential air-fluid level in the right upper quadrant. More mid and distal small bowel loops wit h air and a normal caliber. Small amount of air is within the colon. Differential diagnosis includes ileus and small bowel obstruction. Psoas margins are normal. No organomegaly is present. No free air is identified. IMPRESSION: 1. Dilated is air-filled small bowel loops with air-fluid levels right upper quadrant. Ileus versus p artial small bowel obstruction. Continued follow-up recommended.
[2022-12-30] MEDS: 1: MVI, ADULT NO.4 WITH VIT K 10 ML, TRACE (CONC-1ML/DOSE) 1 ML, CALCIUM GLUCONATE 1 GM, IV SCH ×5 (15:00)
--- NOTE | 2022-12-30 15:32 | P.PN ---
Progress Note - Text Progress Note Date: 12/30/22 Hospital course: patient is a 67-year-old gentleman with no significant past medical history who presented to the ER for right lower quadrant abdominal pain. Patient was sent in from urgent care. Patient has been having this abdominal pain for the last few days, intermittent, nonradiating. Denies any fever or chills. Was having nausea but no vomiting. Because of abdominal pain, he was referred to ER for suspicion of acute appendicitis Initial lab work done in the ER showed WBC 10.3, hemoglobin 15.7, platelet, 91, sodium 136, potassium 4.4, BUN 15, creatinine 0.85, bilirubin 1.5 CT abdominal and pelvis done showed severe inflammatory changes in right lower quadrant most likely on the basis of acute appendicitis. Patient was admitted to surgery service, patient underwent left pubic appendicectomy. Postoperative medical team consulted 12/24. Patient seen and examined. Patient has a Harrington in place. Passing gas. 12/25. Patient seen and examined. Blood work done this morning showed WBC 8.1, hemoglobin 7.8, platelet count 219. Complaining of abdominal distention. CT abdominal and pelvis ordered December 26: I assumed care of the patient today. NG tube accidentally fell out. Patient is nothing by mouth. No flatus. Has a Harrington catheter. While abdominal pain. Discussed with the patient increase activity. Chewing gum ordered. December 27: Patient has been up to the bathroom. Have a bowel movement. No nausea vomiting. Remains nothing by mouth. No abdominal bloating or pain. Seen by surgery. Continue current treatment. December 28: Sitting up in a chair. Minimal abdominal pain. No nausea vomiting. Nothing by mouth. Did pass a small amount of flatus. Ambulating. In the hallway December 29: Up in a chair. Ambulating. Did have a bout of vomiting last night. Some flatus this morning. Remains nothing by mouth. PICC line placed today. TPN and lipid started. December 30: Patient had a bowel movement last night and this morning. Started on clear liquids. Patient getting TPN and lipids. Ambulating in the hallway. Active Medications Acetaminophen (Acetaminophen Tab 325 Mg Tab) 650 mg PO Q4H PRN PRN Reason: Pain Hydrocodone Bitart/Acetaminophen (Hydrocodone/Apap 5-325mg 1 Each Tab) 1 each PO Q4HR PRN PRN Reason: Pain Last Admin: 12/30/22 02:29 Dose: 1 each Benzocaine (Benzocaine [place] 1 Can) 1 spray MUCOUS MEM QID PRN; Protocol PRN Reason: Mouth Irritation Hydromorphone HCl (Hydromorphone 0.5 Mg/0.5 Ml Syringe) 0.5 mg IVP Q4H PRN PRN Reason: Pain Last Admin: 12/29/22 00:08 Dose: 0.5 mg Hydromorphone HCl (Hydromorphone 1 Mg/Ml 1 Ml Syringe) 1 mg IVP Q4HR PRN PRN Reason: Severe Pain (Scale 7 to 10) Last Admin: 12/29/22 21:56 Dose: 1 mg Piperacillin Sod/Tazobactam (Sod 3.375 gm/ Sodium Chloride) 100 mls @ 25 mls/hr IVPB Q8HR [facility]; Protocol Last Admin: 12/30/22 08:09 Dose: 25 mls/hr Sodium Chloride (Saline 0.9%) 1,000 mls @ 50 mls/hr IV .Q20H [facility] Last Admin: 12/30/22 05:35 Dose: 100 mls/hr Parenteral Vitamin Supplement 10 ml/ Zinc/Copper/Manganese/Selenium 1 ml/ Calcium Gluconate 1 gm/ Potassium Phosphate 15 mmol/ Amino Acids /Dextrose 1,026 mls @ 95 mls/hr IV .BY DURATION [facility] Last Admin: 12/30/22 15:00 Dose: 95 mls/hr Calcium Gluconate 1 gm/Potassium Phosphate 15 mmol/Amino Acids/Dextrose 1,015 mls @ 95 mls/hr IV .BY DURATION [facility] Fat Emulsion Intravenous 250 (ml/ IV Solution) 250 mls @ 21 mls/hr IV MoTh [facility] Last Admin: 12/29/22 18:21 Dose: 21 mls/hr Metoclopramide HCl (Metoclopramide 5 Mg/Ml 2 Ml Vial) 10 mg IVP Q6H [facility] Last Admin: 12/30/22 11:52 Dose: 10 mg Naloxone HCl (Naloxone 0.4 Mg/Ml 1 Ml Vial) 0.2 mg IV Q2M PRN PRN Reason: Opioid Reversal Ondansetron HCl (Ondansetron 4 Mg/2 Ml Vial) 4 mg IVP Q6HR PRN PRN Reason: Nausea And Vomiting Last Admin: 12/29/22 20:29 Dose: 4 mg Tamsulosin HCl (Tamsulosin 0.4 Mg Cap.Er.24h) 0.4 mg PO PC-BRKFST [facility] Last Admin: 12/30/22 08:09 Dose: 0.4 mg On examination: VITAL SIGNS: 98.7, 85, 16, 119/68, 94% room air GENERAL APPEARANCE:, sitting up in a chair awake comfortable. HEENT: Normal external appearance of nose and ear. Oral cavity normal EYES: Pupils equal. Conjunctiva normal. NECK: JVD not raised. Mass not palpable. RESPIRATORY: Respiratory effort normal. Lungs clear to auscultation. CARDIOVASCULAR: First and second sounds normal. No edema. ABDOMEN: Soft. Liver and spleen not palpable. Minimal tenderness. No mass palpable. Dressing over incision site. Sluggish bowel sounds PSYCHIATRY: Alert and oriented x3. Mood and affect normal. INVESTIGATIONS, reviewed in the clinical context: December 30: Sodium 149 potassium 3.8 BUN 22 creatinine 0.71 December 29: White count 7.4 hemoglobin 7.5 potassium 3.9 creatinine 0.68 December 28: White count 6.9 hemoglobin 8.6 platelets 264 December 27: White count 7.1 hemoglobin 8 platelets 234 December 26: White count 6.2 hemoglobin 7.5 platelets 195 Admission labs: White count 11.4 hemoglobin 11 platelets 200 potassium 5.2 creatinine 1.0 Assessment and plan -Acute appendicitis status post laparoscopic appendicectomy-on 12/22/2022 -Clinically, postop ileus.: Improving Had NG tube Had a BM yesterday evening and this morning. Clear liquid diets -Acute postprocedure blood loss anemia. IV Ferrlecit 2 doses, received -Hypoalbuminemia, reactive -Primary osteoarthritis Pain medications as needed 2 -BPH Harrington catheter. Flomax. -TPN and lipid started December 29 -Full code Clear liquids. TPN and lipids. Ambulating in hallway. Follow with surgery.
[2022-12-31] MEDS: SODIUM CHLORIDE 0.9% 1,000 ML IV SCH ×3 (01:07→21:15)
[2022-12-31] MEDS: 1: MVI, ADULT NO.4 WITH VIT K 10 ML, TRACE (CONC-1ML/DOSE) 1 ML, CALCIUM GLUCONATE 1 GM, IV SCH ×17 (02:02→20:11)
[2022-12-31] MEDS: METOCLOPRAMIDE 5 MG/ML 2 ML VIAL IVP SCH ×4 (05:08→23:43)
[2022-12-31 07:28] LABS: ALT 47 U/L (4-49); AST 67 U/L (17-59); African American GFR (CKD) >90 (>60 ml/min/1.73 sqM); Albumin 2.6 g/dL (3.5-5.0); Albumin/Globulin Ratio 1.1; Alkaline Phosphatase 30 U/L (38-126); Anion Gap 5 mmol/L; Blood Urea Nitrogen 17 mg/dL (9-20); Calcium 7.7 mg/dL (8.4-10.2); Carbon Dioxide 27 mmol/L (22-30); Chloride 112 mmol/L (98-107); Globulin 2.4 g/dL; Glucose 129 mg/dL (74-99); Non-African American GFR(CKD) >90 (>60 ml/min/1.73 sqM); Potassium 3.6 mmol/L (3.5-5.1); Sodium 144 mmol/L (137-145); Total Bilirubin 4.7 mg/dL (0.2-1.3)
[2022-12-31] MEDS ORDERED: diphenhydrAMINE 25 MG CAP PO PRN (09:04)
[2022-12-31] MEDS: PIPERACILLIN-TAZOBACTAM 3.375 GM in SODIUM CHLORIDE 0.9% 100 ML IVPB SCH ×3 (09:30→23:43)
[2022-12-31] MEDS: TAMSULOSIN 0.4 MG CAP.ER.24H PO SCH (09:30)
--- NOTE | 2022-12-31 09:47 | P.PN ---
Subjective Progress Note Date: 12/31/22 Principal diagnosis: Appendicitis 67-year-old male underwent laparoscopic appendectomy. Patient has had prolonged ileus. Remains somewhat bloated. Had a bowel movement and flatus today. Thinks his bowel function has improved. No nausea now. Tolerating some of the clear liquids does not want his diet advanced further yet. Harrington catheter in place. Objective - Vital Signs Vital signs: Vital Signs Temp 98.2 F 12/31/22 07:07 Pulse 76 12/31/22 07:07 Resp 18 12/31/22 07:07 BP 141/77 12/31/22 07:07 Pulse Ox 93 L 12/31/22 07:07 FiO2 Intake & Output 12/30/22 12/31/22 12/31/22 18:59 06:59 18:59 Output Total 400 Balance -400 Weight 93.894 kg Output: Urine 400 Other: Voiding Method Indwelling Catheter Indwelling Catheter - Exam Abdomen: Soft, mild diffuse tenderness, mild distention, ecchymosis present - Labs CBC & Chem 7: 12/29/22 07:12 12/31/22 05:31 Labs: Abnormal Lab Results - Last 24 Hours (Table) 12/31/22 Range/Units 05:31 Chloride 112 H (98-107) mmol/L Creatinine 0.62 L (0.66-1.25) mg/dL Glucose 129 H (74-99) mg/dL Calcium 7.7 L (8.4-10.2) mg/dL Total Bilirubin 4.7 H (0.2-1.3) mg/dL AST 67 H (17-59) U/L Alkaline Phosphatase 30 L (38-126) U/L Total Protein 5.0 L (6.3-8.2) g/dL Albumin 2.6 L (3.5-5.0) g/dL Assessment and Plan (1) Appendicitis Narrative/Plan: 67-year-old male with acute appendicitis. She has had a prolonged ileus that seems to be gradually improving. Recheck labs tomorrow. Increase activity as tolerated. Continue clear liquids. Current Visit: Yes Status: Acute Code(s): K37 - UNSPECIFIED APPENDICITIS SNOMED Code(s): 43362537
--- NOTE | 2022-12-31 19:29 | P.PN ---
Progress Note - Text Progress Note Date: 12/31/22 Hospital course: patient is a 67-year-old gentleman with no significant past medical history who presented to the ER for right lower quadrant abdominal pain. Patient was sent in from urgent care. Patient has been having this abdominal pain for the last few days, intermittent, nonradiating. Denies any fever or chills. Was having nausea but no vomiting. Because of abdominal pain, he was referred to ER for suspicion of acute appendicitis Initial lab work done in the ER showed WBC 10.3, hemoglobin 15.7, platelet, 91, sodium 136, potassium 4.4, BUN 15, creatinine 0.85, bilirubin 1.5 CT abdominal and pelvis done showed severe inflammatory changes in right lower quadrant most likely on the basis of acute appendicitis. Patient was admitted to surgery service, patient underwent left pubic appendicectomy. Postoperative medical team consulted 12/24. Patient seen and examined. Patient has a Harrington in place. Passing gas. 12/25. Patient seen and examined. Blood work done this morning showed WBC 8.1, hemoglobin 7.8, platelet count 219. Complaining of abdominal distention. CT abdominal and pelvis ordered December 26: I assumed care of the patient today. NG tube accidentally fell out. Patient is nothing by mouth. No flatus. Has a Harrington catheter. While abdominal pain. Discussed with the patient increase activity. Chewing gum ordered. December 27: Patient has been up to the bathroom. Have a bowel movement. No nausea vomiting. Remains nothing by mouth. No abdominal bloating or pain. Seen by surgery. Continue current treatment. December 28: Sitting up in a chair. Minimal abdominal pain. No nausea vomiting. Nothing by mouth. Did pass a small amount of flatus. Ambulating. In the hallway December 29: Up in a chair. Ambulating. Did have a bout of vomiting last night. Some flatus this morning. Remains nothing by mouth. PICC line placed today. TPN and lipid started. December 30: Patient had a bowel movement last night and this morning. Started on clear liquids. Patient getting TPN and lipids. Ambulating in the hallway. December 31: On clear liquid diet. Did vomit once yesterday. Feels a bit bloated. Had a couple loose stools. Abdominal pain 3-4 out of 10. Getting in the hallway. Discussed with the patient is liquids. TPN and lipids. Active Medications Acetaminophen (Acetaminophen Tab 325 Mg Tab) 650 mg PO Q4H PRN PRN Reason: Pain Hydrocodone Bitart/Acetaminophen (Hydrocodone/Apap 5-325mg 1 Each Tab) 1 each PO Q4HR PRN PRN Reason: Pain Last Admin: 12/30/22 02:29 Dose: 1 each Benzocaine (Benzocaine [place] 1 Can) 1 spray MUCOUS MEM QID PRN; Protocol PRN Reason: Mouth Irritation Diphenhydramine HCl (Diphenhydramine 25 Mg Cap) 25 mg PO HS PRN PRN Reason: Moderate Anxiety Hydromorphone HCl (Hydromorphone 0.5 Mg/0.5 Ml Syringe) 0.5 mg IVP Q4H PRN PRN Reason: Pain Last Admin: 12/29/22 00:08 Dose: 0.5 mg Hydromorphone HCl (Hydromorphone 1 Mg/Ml 1 Ml Syringe) 1 mg IVP Q4HR PRN PRN Reason: Severe Pain (Scale 7 to 10) Last Admin: 12/29/22 21:56 Dose: 1 mg Piperacillin Sod/Tazobactam (Sod 3.375 gm/ Sodium Chloride) 100 mls @ 25 mls/hr IVPB Q8HR [facility]; Protocol Last Admin: 12/31/22 16:51 Dose: 25 mls/hr Sodium Chloride (Saline 0.9%) 1,000 mls @ 50 mls/hr IV .Q20H [facility] Last Admin: 12/31/22 01:07 Dose: Not Given Fat Emulsion Intravenous 250 (ml/ IV Solution) 250 mls @ 21 mls/hr IV MoTh [facility] Last Admin: 12/29/22 18:21 Dose: 21 mls/hr Parenteral Vitamin Supplement 10 ml/ Zinc/Copper/Manganese/Selenium 1 ml/ Calcium Gluconate 1 gm/ Potassium Phosphate 15 mmol/ Magnesium Sulfate 0.25 gm/ Sodium Acetate 10 meq/ Amino Acids/Dextrose 1,031.5 mls @ 95 mls/hr IV .BY DURATION [facility] Last Admin: 12/31/22 13:55 Dose: 95 mls/hr Calcium Gluconate 1 gm/Potassium Phosphate 15 mmol/Magnesium Sulfate 0.25 gm/Sodium Acetate 10 meq/ Amino Acids/Dextrose 1,020.5 mls @ 95 mls/hr IV .BY DURATION [facility] Metoclopramide HCl (Metoclopramide 5 Mg/Ml 2 Ml Vial) 10 mg IVP Q6H [facility] Last Admin: 12/31/22 18:44 Dose: 10 mg Naloxone HCl (Naloxone 0.4 Mg/Ml 1 Ml Vial) 0.2 mg IV Q2M PRN PRN Reason: Opioid Reversal Ondansetron HCl (Ondansetron 4 Mg/2 Ml Vial) 4 mg IVP Q6HR PRN PRN Reason: Nausea And Vomiting Last Admin: 12/29/22 20:29 Dose: 4 mg Tamsulosin HCl (Tamsulosin 0.4 Mg Cap.Er.24h) 0.4 mg PO PC-BRKFST [facility] Last Admin: 12/31/22 09:30 Dose: 0.4 mg Zolpidem Tartrate (Zolpidem 5 Mg Tab) 5 mg PO HS PRN PRN Reason: Insomnia Stop: 01/05/23 09:06 On examination: VITAL SIGNS: 98, 97, 14, 140/85, 95% room air GENERAL APPEARANCE:, sitting up in a chair comfortable. HEENT: Normal external appearance of nose and ear. Oral cavity normal EYES: Pupils equal. Conjunctiva normal. NECK: JVD not raised. Mass not palpable. RESPIRATORY: Respiratory effort normal. Lungs clear to auscultation. CARDIOVASCULAR: First and second sounds normal. No edema. ABDOMEN: Soft. Liver and spleen not palpable. Slight distention. No mass palpable. Dressing over incision site. PSYCHIATRY: Alert and oriented x3. Mood and affect normal. INVESTIGATIONS, reviewed in the clinical context: December 31: Sodium 144 potassium 3.6 creatinine 0.62 December 26: White count 6.2 hemoglobin 7.5 platelets 195 Admission labs: White count 11.4 hemoglobin 11 platelets 200 potassium 5.2 creatinine 1.0 Assessment and plan -Acute appendicitis status post laparoscopic appendicectomy-on 12/22/2022 -Clinically, postop ileus.: Slow Improvement Had NG tube Had a loose stool last night and this morning. Did vomited 1.. Clear liquid diets -Acute postprocedure blood loss anemia. IV Ferrlecit 2 doses, received -Hypoalbuminemia, reactive -Primary osteoarthritis Pain medications as needed 2 -BPH Harrington catheter. Flomax. -TPN and lipid started December 29 -Full code Clear liquids. TPN and lipids. Discussed with patient to space out his liquids.
[2022-12-31] MEDS: ONDANSETRON 4 MG/2 ML VIAL IVP PRN (21:15)
[2022-12-31] MEDS: ZOLPIDEM 5 MG TAB PO PRN (21:16)
[2023-01-01] MEDS: 1: MVI, ADULT NO.4 WITH VIT K 10 ML, TRACE (CONC-1ML/DOSE) 1 ML, CALCIUM GLUCONATE 1 GM, IV SCH ×15 (01:37→14:51)
[2023-01-01] MEDS: METOCLOPRAMIDE 5 MG/ML 2 ML VIAL IVP SCH ×3 (05:05→17:57)
[2023-01-01] MEDS: SODIUM CHLORIDE 0.9% 1,000 ML IV SCH (05:08)
[2023-01-01 06:15] LABS: ALT 80 U/L (4-49); AST 80 U/L (17-59); African American GFR (CKD) >90 (>60 ml/min/1.73 sqM); Albumin 2.4 g/dL (3.5-5.0); Alkaline Phosphatase 35 U/L (38-126); Anion Gap 4 mmol/L; Blood Urea Nitrogen 17 mg/dL (9-20); Calcium 7.7 mg/dL (8.4-10.2); Carbon Dioxide 28 mmol/L (22-30); Chloride 109 mmol/L (98-107); Globulin 2.4 g/dL; Glucose 121 mg/dL (74-99); Magnesium 1.8 mg/dL (1.6-2.3); Non-African American GFR(CKD) >90 (>60 ml/min/1.73 sqM); Phosphorus 3.6 mg/dL (2.5-4.5); Potassium 3.3 mmol/L (3.5-5.1); Sodium 141 mmol/L (137-145); Total Bilirubin 4.4 mg/dL (0.2-1.3); Total Protein 4.8 g/dL (6.3-8.2)
[2023-01-01 07:14] LABS: HCT 27.9 % (39.6-50.0); MCH 31.4 pg (27.0-32.0); MCHC 28.7 d/dL (32.0-37.0); MCV 109.4 FL (80.0-97.0); Mean Platelet Volume 11.3 FL (9.5-12.2); NRBC Per 100 WBC 0.08 X 10*3/uL (0.00-0.01); Platelet Count 240 X 10*3/uL (140-440); RBC 2.55 X 10*6/uL (4.40-5.60); RDW 16.6 % (11.5-14.5); WBC 8.73 X 10*3/uL (4.50-10.00)
[2023-01-01] MEDS: TAMSULOSIN 0.4 MG CAP.ER.24H PO SCH (08:38)
[2023-01-01] MEDS: PIPERACILLIN-TAZOBACTAM 3.375 GM in SODIUM CHLORIDE 0.9% 100 ML IVPB SCH ×2 (08:38→17:14)
[2023-01-01 09:44] LABS: Basophils # (A) 0.03 X 10*3/uL (0.00-0.10); Basophils % (A) 0.4 %; Eosinophils # (A) 0.29 X 10*3/uL (0.04-0.35); HCT 27.1 % (39.6-50.0); HGB 8.1 d/dL (13.0-17.0); Lymphocytes # (A) 1.28 X 10*3/uL (0.90-5.00); Lymphocytes % (A) 17.8 %; MCH 31.4 pg (27.0-32.0); MCHC 29.9 d/dL (32.0-37.0); Monocytes # (A) 0.49 X 10*3/uL (0.20-1.00); Monocytes % (A) 6.8 %; NRBC Per 100 WBC 0.03 X 10*3/uL (0.00-0.01); Neutrophils # (A) 4.84 X 10*3/uL (1.80-7.70); Neutrophils % (A) 67.5 %; Platelet Count 200 X 10*3/uL (140-440); RBC 2.58 X 10*6/uL (4.40-5.60); RDW 16.7 % (11.5-14.5); WBC 7.18 X 10*3/uL (4.50-10.00)
--- NOTE | 2023-01-01 10:24 | P.PN ---
Subjective Progress Note Date: 01/01/23 Principal diagnosis: Appendicitis Patient ambulating in the room. Says his pain is improved. He did have episodes of vomiting twice yesterday. Does not want his diet advanced. He did have 2 bowel was well. Patient would like to have Harrington catheter removed. Objective - Vital Signs Vital signs: Vital Signs Temp 98.0 F 01/01/23 07:00 Pulse 83 01/01/23 07:00 Resp 16 01/01/23 07:00 BP 118/74 01/01/23 07:00 Pulse Ox 92 L 01/01/23 07:58 FiO2 Intake & Output 12/31/22 01/01/23 01/01/23 18:59 06:59 18:59 Output Total 800 Balance -800 Output: Urine 500 Emesis 300 Other: Voiding Method Toilet Indwelling Catheter # Bowel Movements 2 - Exam Abdomen: Soft, mild distention, mild tenderness, incisions clean and dry with ecchymosis present - Labs CBC & Chem 7: 01/01/23 05:09 01/01/23 05:09 Labs: Abnormal Lab Results - Last 24 Hours (Table) 12/31/22 01/01/23 01/01/23 Range/Units 05:31 05:09 05:09 RBC 2.55 L 2.58 L (4.40-5.60) X 10*6/uL Hgb 8.0 L 8.1 L (13.0-17.0) d/dL Hct 27.9 L 27.1 L (39.6-50.0) % MCV 109.4 H 105.0 H (80.0-97.0) FL MCHC 28.7 L 29.9 L (32.0-37.0) d/dL RDW 16.6 H 16.7 H (11.5-14.5) % NRBC/100 WBC Diff 0.08 H 0.03 H (0.00-0.01) X 10*3/uL Potassium 3.3 L (3.5-5.1) mmol/L Chloride 109 H (98-107) mmol/L Creatinine 0.62 L (0.66-1.25) mg/dL Glucose 121 H (74-99) mg/dL Calcium 7.7 L (8.4-10.2) mg/dL Total Bilirubin 4.4 H (0.2-1.3) mg/dL AST 80 H (17-59) U/L ALT 80 H (4-49) U/L Alkaline Phosphatase 35 L (38-126) U/L Total Protein 4.8 L (6.3-8.2) g/dL Albumin 2.4 L (3.5-5.0) g/dL Assessment and Plan (1) Appendicitis Narrative/Plan: Patient seems to be doing slightly better today. Continue clear liquids. Ambulate. Remove Harrington catheter. Current Visit: Yes Status: Acute Code(s): K37 - UNSPECIFIED APPENDICITIS SNOMED Code(s): 93089505
[2023-01-01] MEDS: FUROSEMIDE 10 MG/ML 2 ML VIAL IV SCH ×2 (14:33→17:57)
--- NOTE | 2023-01-01 20:18 | P.PN ---
Progress Note - Text Progress Note Date: 01/01/23 Hospital course: patient is a 67-year-old gentleman with no significant past medical history who presented to the ER for right lower quadrant abdominal pain. Patient was sent in from urgent care. Patient has been having this abdominal pain for the last few days, intermittent, nonradiating. Denies any fever or chills. Was having nausea but no vomiting. Because of abdominal pain, he was referred to ER for suspicion of acute appendicitis Initial lab work done in the ER showed WBC 10.3, hemoglobin 15.7, platelet, 91, sodium 136, potassium 4.4, BUN 15, creatinine 0.85, bilirubin 1.5 CT abdominal and pelvis done showed severe inflammatory changes in right lower quadrant most likely on the basis of acute appendicitis. Patient was admitted to surgery service, patient underwent left pubic appendicectomy. Postoperative medical team consulted 12/24. Patient seen and examined. Patient has a Harrington in place. Passing gas. 12/25. Patient seen and examined. Blood work done this morning showed WBC 8.1, hemoglobin 7.8, platelet count 219. Complaining of abdominal distention. CT abdominal and pelvis ordered December 26: I assumed care of the patient today. NG tube accidentally fell out. Patient is nothing by mouth. No flatus. Has a Harrington catheter. While abdominal pain. Discussed with the patient increase activity. Chewing gum ordered. December 27: Patient has been up to the bathroom. Have a bowel movement. No nausea vomiting. Remains nothing by mouth. No abdominal bloating or pain. Seen by surgery. Continue current treatment. December 28: Sitting up in a chair. Minimal abdominal pain. No nausea vomiting. Nothing by mouth. Did pass a small amount of flatus. Ambulating. In the hallway December 29: Up in a chair. Ambulating. Did have a bout of vomiting last night. Some flatus this morning. Remains nothing by mouth. PICC line placed today. TPN and lipid started. December 30: Patient had a bowel movement last night and this morning. Started on clear liquids. Patient getting TPN and lipids. Ambulating in the hallway. December 31: On clear liquid diet. Did vomit once yesterday. Feels a bit bloated. Had a couple loose stools. Abdominal pain 3-4 out of 10. Getting in the hallway. Discussed with the patient is liquids. TPN and lipids. January 01: Remains on clear liquid. Patient again vomited last night. Some abdominal discomfort and slight distention. Has been ambulating. Continues with TPN and lipids. Some loose stool. Active Medications Acetaminophen (Acetaminophen Tab 325 Mg Tab) 650 mg PO Q4H PRN PRN Reason: Pain Hydrocodone Bitart/Acetaminophen (Hydrocodone/Apap 5-325mg 1 Each Tab) 1 each PO Q4HR PRN PRN Reason: Pain Last Admin: 12/30/22 02:29 Dose: 1 each Benzocaine (Benzocaine [place] 1 Can) 1 spray MUCOUS MEM QID PRN; Protocol PRN Reason: Mouth Irritation Diphenhydramine HCl (Diphenhydramine 25 Mg Cap) 25 mg PO HS PRN PRN Reason: Moderate Anxiety Hydromorphone HCl (Hydromorphone 0.5 Mg/0.5 Ml Syringe) 0.5 mg IVP Q4H PRN PRN Reason: Pain Last Admin: 12/29/22 00:08 Dose: 0.5 mg Hydromorphone HCl (Hydromorphone 1 Mg/Ml 1 Ml Syringe) 1 mg IVP Q4HR PRN PRN Reason: Severe Pain (Scale 7 to 10) Last Admin: 12/29/22 21:56 Dose: 1 mg Piperacillin Sod/Tazobactam (Sod 3.375 gm/ Sodium Chloride) 100 mls @ 25 mls/hr IVPB Q8HR [facility]; Protocol Last Admin: 01/01/23 17:14 Dose: 25 mls/hr Fat Emulsion Intravenous 250 (ml/ IV Solution) 250 mls @ 21 mls/hr IV MoTh [facility] Last Admin: 12/29/22 18:21 Dose: 21 mls/hr Parenteral Vitamin Supplement 10 ml/ Zinc/Copper/Manganese/Selenium 1 ml/ Calcium Gluconate 1 gm/ Potassium Phosphate 15 mmol/ Magnesium Sulfate 0.5 gm/ Sodium Acetate 20 meq/ Potassium Acetate 10 meq/ Amino Acids/Dextrose 1,042 mls @ 95 mls/hr IV .BY DURATION [facility] Last Admin: 01/01/23 14:51 Dose: 95 mls/hr Calcium Gluconate 1 gm/Potassium Phosphate 15 mmol/Magnesium Sulfate 0.5 gm/Sodium Acetate 20 meq/Potassium Acetate 10 meq/Amino Acids/Dextrose 1,031 mls @ 95 mls/hr IV .BY DURATION [facility] Metoclopramide HCl (Metoclopramide 5 Mg/Ml 2 Ml Vial) 10 mg IVP Q6H [facility] Last Admin: 01/01/23 17:57 Dose: 10 mg Naloxone HCl (Naloxone 0.4 Mg/Ml 1 Ml Vial) 0.2 mg IV Q2M PRN PRN Reason: Opioid Reversal Ondansetron HCl (Ondansetron 4 Mg/2 Ml Vial) 4 mg IVP Q6HR PRN PRN Reason: Nausea And Vomiting Last Admin: 12/31/22 21:15 Dose: 4 mg Tamsulosin HCl (Tamsulosin 0.4 Mg Cap.Er.24h) 0.4 mg PO PC-BRKFST [facility] Last Admin: 01/01/23 08:38 Dose: 0.4 mg Zolpidem Tartrate (Zolpidem 5 Mg Tab) 5 mg PO HS PRN PRN Reason: Insomnia Stop: 01/05/23 09:06 Last Admin: 12/31/22 21:16 Dose: 5 mg On examination: VITAL SIGNS: 98, 69, 14, 1 36 x 75, 94% room air GENERAL APPEARANCE:, sitting up in a chair comfortable. HEENT: Normal external appearance of nose and ear. Oral cavity normal EYES: Pupils equal. Conjunctiva normal. NECK: JVD not raised. Mass not palpable. RESPIRATORY: Respiratory effort normal. Lungs clear to auscultation. CARDIOVASCULAR: First and second sounds normal. No edema. ABDOMEN: Soft. Liver and spleen not palpable. Slight distention. No mass palpable. Dressing over incision site. Hyperactive bowel sounds PSYCHIATRY: Alert and oriented x3. Mood and affect normal. INVESTIGATIONS, reviewed in the clinical context: December 31: Sodium 144 potassium 3.6 creatinine 0.62 December 26: White count 6.2 hemoglobin 7.5 platelets 195 Admission labs: White count 11.4 hemoglobin 11 platelets 200 potassium 5.2 creatinine 1.0 Assessment and plan -Acute appendicitis status post laparoscopic appendicectomy-on 12/22/2022 -Clinically, postop ileus.: Slow Improvement Had NG tube Loose stool.. Vomited last night. Clear liquid diets -Acute postprocedure blood loss anemia. IV Ferrlecit 2 doses, received -Hypoalbuminemia, reactive -Primary osteoarthritis Pain medications as needed 2 -BPH Harrington catheter. Flomax. -TPN and lipid started December 29 -Full code Clear liquids. TPN and lipids. Continue current treatment plan. Changes scheduled Reglan to by mouth-before meals at bedtime.
[2023-01-01] MEDS: METOCLOPRAMIDE 10 MG TAB PO SCH (22:06)
[2023-01-01] MEDS: ZOLPIDEM 5 MG TAB PO PRN (22:06)
[2023-01-02] MEDS: PIPERACILLIN-TAZOBACTAM 3.375 GM in SODIUM CHLORIDE 0.9% 100 ML IVPB SCH ×3 (01:09→16:45)
[2023-01-02] MEDS: 1: MVI, ADULT NO.4 WITH VIT K 10 ML, TRACE (CONC-1ML/DOSE) 1 ML, CALCIUM GLUCONATE 1 GM, IV SCH ×8 (01:58)
[2023-01-02] MEDS: METOCLOPRAMIDE 10 MG TAB PO SCH ×4 (06:55→20:56)
--- NOTE | 2023-01-02 07:28 | XR ---
EXAMINATION TYPE: XR abdomen 2V DATE OF EXAM: 01/02/2023 6:44 AM CLINICAL INDICATION:Male, 67 years old with history of Follow-up ileus; COMPARISON: Multiple loops of bowel with gaseous dilation. TECHNIQUE: Two views of the abdomen were obtained. FINDINGS: Stable gaseous dilation of the loops of bowel. The bowel gas pattern is nonspecific without dilated loops of small or large bowel. There is no evidence for organomegaly or pneumoperitoneum. T he osseous structures are intact. No abnormal calcifications are present. Fecal material and gas are demonstrated throughout the colon and rectum. IMPRESSION: Stable gaseous dilation of multiple loops of small bowel which was seen in setting of ileus.
[2023-01-02 08:01] LABS: ALT 125 U/L (4-49); AST 85 U/L (17-59); African American GFR (CKD) >90 (>60 ml/min/1.73 sqM); Albumin 2.6 g/dL (3.5-5.0); Albumin/Globulin Ratio 1.1; Alkaline Phosphatase 45 U/L (38-126); Anion Gap 4 mmol/L; Blood Urea Nitrogen 18 mg/dL (9-20); Calcium 7.9 mg/dL (8.4-10.2); Carbon Dioxide 30 mmol/L (22-30); Chloride 103 mmol/L (98-107); Globulin 2.4 g/dL; Glucose 129 mg/dL (74-99); Magnesium 1.8 mg/dL (1.6-2.3); Non-African American GFR(CKD) >90 (>60 ml/min/1.73 sqM); Phosphorus 3.7 mg/dL (2.5-4.5); Potassium 3.4 mmol/L (3.5-5.1); Sodium 137 mmol/L (137-145); Total Bilirubin 3.8 mg/dL (0.2-1.3)
[2023-01-02] MEDS: TAMSULOSIN 0.4 MG CAP.ER.24H PO SCH (08:41)
[2023-01-02] MEDS: 1: MVI, ADULT NO.4 WITH VIT K 10 ML, TRACE (CONC-1ML/DOSE) 1 ML in AMINO ACID 5%-D20W+LY IV SCH ×3 (12:26)
[2023-01-02] MEDS ORDERED: POTASSIUM CHLORIDE ER 20 MEQ TAB.ER PO STA (14:23)
--- NOTE | 2023-01-02 14:26 | P.PN ---
Subjective Progress Note Date: 01/02/23 CHIEF COMPLAINT: Acute appendicitis HISTORY OF PRESENT ILLNESS: Patient is status post laparoscopic appendectomy on 12/22/22. Patient reports that he is feeling better today. He is having bowel movements. He feels less bloated. No further nausea and vomiting. Rates pain about 2 out of 10. Abdominal x-ray shows stable gaseous dilation of multiple loops of small bowel which is seen in ileus. Afebrile. Sodium 137 potassium 3.4 creatinine 0.48 total bili 3.8 elevated liver enzymes. Harrington out. Patient urinating without difficulty. PHYSICAL EXAM: VITAL SIGNS: Reviewed. GENERAL: Well-developed in no acute distress. ABDOMEN: Soft. Nondistended. Patient does have extensive bruising across the low lower abdomen and upper abdomen NEUROLOGIC: Alert and oriented. Cranial nerves II through XII grossly intact. ASSESSMENT: 1. Acute appendicitis status post laparoscopic appendectomy 2. Hemoperitoneum noted on CT. HGB stable 3. Postoperative Ileus secondary to appendicitis 4. Urinary retention resolved 5. Elevated LFTs likely related to TPN PLAN: -Advanced at the full liquids -Continue TPN for nutrition support -Continue Reglan -Encouraged patient to ambulate and use incentive spirometer -Continue IV antibiotics -Replace potassium and repeat K level in AM -Repeat LFTs in a.m. -SCDs for DVT prophylaxis Physician Ict Help Desk Officer note has been reviewed by physician. Signing provider agrees with the documented findings, assessment, and plan of care. Objective - Vital Signs Vital signs: Vital Signs Temp 97.9 F 01/02/23 07:20 Pulse 75 01/02/23 07:20 Resp 16 01/02/23 07:20 BP 143/73 01/02/23 07:20 Pulse Ox 94 L 01/02/23 07:20 FiO2 Intake & Output 01/01/23 01/02/23 01/02/23 18:59 06:59 18:59 Output Total 2400 1450 Balance -2400 -1450 Weight 93.894 kg Output: Urine 2400 1450 Uretheral (Harrington) 600 Other: Voiding Method Indwelling Catheter - Labs CBC & Chem 7: 01/01/23 05:09 01/02/23 05:57 Labs: Abnormal Lab Results - Last 24 Hours (Table) 01/02/23 Range/Units 05:57 Potassium 3.4 L (3.5-5.1) mmol/L Creatinine 0.58 L (0.66-1.25) mg/dL Glucose 129 H (74-99) mg/dL Calcium 7.9 L (8.4-10.2) mg/dL Total Bilirubin 3.8 H (0.2-1.3) mg/dL AST 85 H (17-59) U/L ALT 125 H (4-49) U/L Total Protein 5.0 L (6.3-8.2) g/dL Albumin 2.6 L (3.5-5.0) g/dL
[2023-01-02] MEDS: FAT EMULSION 20% 250 ML in EMPTY BAG 1 BAG IV SCH (16:44)
--- NOTE | 2023-01-02 19:45 | P.PN ---
Progress Note - Text Progress Note Date: 01/02/23 Hospital course: patient is a 67-year-old gentleman with no significant past medical history who presented to the ER for right lower quadrant abdominal pain. Patient was sent in from urgent care. Patient has been having this abdominal pain for the last few days, intermittent, nonradiating. Denies any fever or chills. Was having nausea but no vomiting. Because of abdominal pain, he was referred to ER for suspicion of acute appendicitis Initial lab work done in the ER showed WBC 10.3, hemoglobin 15.7, platelet, 91, sodium 136, potassium 4.4, BUN 15, creatinine 0.85, bilirubin 1.5 CT abdominal and pelvis done showed severe inflammatory changes in right lower quadrant most likely on the basis of acute appendicitis. Patient was admitted to surgery service, patient underwent left pubic appendicectomy. Postoperative medical team consulted 12/24. Patient seen and examined. Patient has a Harrington in place. Passing gas. 12/25. Patient seen and examined. Blood work done this morning showed WBC 8.1, hemoglobin 7.8, platelet count 219. Complaining of abdominal distention. CT abdominal and pelvis ordered December 26: I assumed care of the patient today. NG tube accidentally fell out. Patient is nothing by mouth. No flatus. Has a Harrington catheter. While abdominal pain. Discussed with the patient increase activity. Chewing gum ordered. December 27: Patient has been up to the bathroom. Have a bowel movement. No nausea vomiting. Remains nothing by mouth. No abdominal bloating or pain. Seen by surgery. Continue current treatment. December 28: Sitting up in a chair. Minimal abdominal pain. No nausea vomiting. Nothing by mouth. Did pass a small amount of flatus. Ambulating. In the hallway December 29: Up in a chair. Ambulating. Did have a bout of vomiting last night. Some flatus this morning. Remains nothing by mouth. PICC line placed today. TPN and lipid started. December 30: Patient had a bowel movement last night and this morning. Started on clear liquids. Patient getting TPN and lipids. Ambulating in the hallway. December 31: On clear liquid diet. Did vomit once yesterday. Feels a bit bloated. Had a couple loose stools. Abdominal pain 3-4 out of 10. Getting in the hallway. Discussed with the patient is liquids. TPN and lipids. January 01: Remains on clear liquid. Patient again vomited last night. Some abdominal discomfort and slight distention. Has been ambulating. Continues with TPN and lipids. Some loose stool. January 02: Since yesterday and no vomiting. Has had some loose stools. Minimal pain. Continues on TPN and lipid. Ambulating. Advance to full liquid diet. X-rays reviewed by me shows multiple A levels. Active Medications Acetaminophen (Acetaminophen Tab 325 Mg Tab) 650 mg PO Q4H PRN PRN Reason: Pain Hydrocodone Bitart/Acetaminophen (Hydrocodone/Apap 5-325mg 1 Each Tab) 1 each PO Q4HR PRN PRN Reason: Pain Last Admin: 12/30/22 02:29 Dose: 1 each Benzocaine (Benzocaine [place] 1 Can) 1 spray MUCOUS MEM QID PRN; Protocol PRN Reason: Mouth Irritation Diphenhydramine HCl (Diphenhydramine 25 Mg Cap) 25 mg PO HS PRN PRN Reason: Moderate Anxiety Hydromorphone HCl (Hydromorphone 0.5 Mg/0.5 Ml Syringe) 0.5 mg IVP Q4H PRN PRN Reason: Pain Last Admin: 12/29/22 00:08 Dose: 0.5 mg Hydromorphone HCl (Hydromorphone 1 Mg/Ml 1 Ml Syringe) 1 mg IVP Q4HR PRN PRN Reason: Severe Pain (Scale 7 to 10) Last Admin: 12/29/22 21:56 Dose: 1 mg Piperacillin Sod/Tazobactam (Sod 3.375 gm/ Sodium Chloride) 100 mls @ 25 mls/hr IVPB Q8HR [facility]; Protocol Last Admin: 01/02/23 16:45 Dose: 25 mls/hr Fat Emulsion Intravenous 250 (ml/ IV Solution) 250 mls @ 21 mls/hr IV MoTh [facility] Last Admin: 01/02/23 16:44 Dose: 21 mls/hr Parenteral Vitamin Supplement 10 ml/ Zinc/Copper/Manganese/Selenium 1 ml/ Amino Ac/Electrol/Dextrose/Calcium 1,011 mls @ 95 mls/hr IV .BY DURATION [facility] Last Admin: 01/02/23 12:26 Dose: 95 mls/hr Amino Ac/Electrol/Dextrose/Calcium (Clinimix E 5%-20% Solution) 1,000 mls @ 95 mls/hr IV .BY DURATION [facility] Metoclopramide HCl (Metoclopramide 10 Mg Tab) 10 mg PO ACHS [facility] Last Admin: 01/02/23 17:33 Dose: 10 mg Naloxone HCl (Naloxone 0.4 Mg/Ml 1 Ml Vial) 0.2 mg IV Q2M PRN PRN Reason: Opioid Reversal Ondansetron HCl (Ondansetron 4 Mg/2 Ml Vial) 4 mg IVP Q6HR PRN PRN Reason: Nausea And Vomiting Last Admin: 12/31/22 21:15 Dose: 4 mg Tamsulosin HCl (Tamsulosin 0.4 Mg Cap.Er.24h) 0.4 mg PO PC-BRKFST [facility] Last Admin: 01/02/23 08:41 Dose: 0.4 mg Zolpidem Tartrate (Zolpidem 5 Mg Tab) 5 mg PO HS PRN PRN Reason: Insomnia Stop: 01/05/23 09:06 Last Admin: 01/01/23 22:06 Dose: 5 mg On examination: VITAL SIGNS: 97.8, 97, 18, 131/74, 94% room air GENERAL APPEARANCE:, sitting up in a chair comfortable. HEENT: Normal external appearance of nose and ear. Oral cavity normal EYES: Pupils equal. Conjunctiva normal. NECK: JVD not raised. Mass not palpable. RESPIRATORY: Respiratory effort normal. Lungs clear to auscultation. CARDIOVASCULAR: First and second sounds normal. No edema. ABDOMEN: Soft. Liver and spleen not palpable. Slight distention. No mass palpable. Dressing over incision site. Also is present PSYCHIATRY: Alert and oriented x3. Mood and affect normal. INVESTIGATIONS, reviewed in the clinical context: January 02: Potassium 3.4 December 31: Sodium 144 potassium 3.6 creatinine 0.62 December 26: White count 6.2 hemoglobin 7.5 platelets 195 Admission labs: White count 11.4 hemoglobin 11 platelets 200 potassium 5.2 creatinine 1.0 Assessment and plan -Acute appendicitis status post laparoscopic appendicectomy-on 12/22/2022 -Clinically, postop ileus.: Improving Had NG tube Loose stool.. No further vomiting Advanced to full liquid per surgery -Acute postprocedure blood loss anemia. IV Ferrlecit 2 doses, received -Hypoalbuminemia, reactive -Primary osteoarthritis Pain medications as needed 2 -BPH Harrington catheter. Flomax. -TPN and lipid started December 29 -Full code 4 liquids. TPN and lipids. Continue current treatment plan. Discussed.
[2023-01-02] MEDS: ZOLPIDEM 5 MG TAB PO PRN (22:34)
[2023-01-03] MEDS: 1: MVI, ADULT NO.4 WITH VIT K 10 ML, TRACE (CONC-1ML/DOSE) 1 ML in AMINO ACID 5%-D20W+LY IV SCH ×6 (00:14→12:17)
[2023-01-03] MEDS: PIPERACILLIN-TAZOBACTAM 3.375 GM in SODIUM CHLORIDE 0.9% 100 ML IVPB SCH ×3 (00:14→16:51)
[2023-01-03] MEDS: METOCLOPRAMIDE 10 MG TAB PO SCH ×4 (06:56→21:28)
[2023-01-03] MEDS: TAMSULOSIN 0.4 MG CAP.ER.24H PO SCH (07:41)
--- NOTE | 2023-01-03 08:36 | US ---
EXAMINATION TYPE: US gallbladder DATE OF EXAM: 01/03/2023 COMPARISON: NONE CLINICAL INDICATION: Male, 67 years old with history of Cholelithiasis; Pain exam limited due to gas patient had surgery appendix removed. Limited also due to glue and strips from surgery. TECHNIQUE: Multiple sonographic images of the right upper quadrant are obtained. FINDINGS: EXAM MEASUREMENTS: Liver Length: 13.5 cm Gallbladder Wall: .4 cm CBD: Obscured. Right Kidney: 9.4 x 6.6 x 4.3 cm [employer] NOTES: Pancreas: Obscured by bowel gas Liver: Limited hypoechoic area seen 2.2 x 2.1 x 1.8 cm. Gallbladder: Obscured limited visualization Evidence for sonographic Herring's sign: no CBD: Obscured by overlying bowel gas Right Kidney: Limited due to bowel gas IMPRESSION: Hepatic cyst. Limited visualization of the gallbladder.
[2023-01-03] MEDS ORDERED: POTASSIUM CHLORIDE ER 20 MEQ TAB.ER PO STA (09:10)
[2023-01-03 09:14] LABS: Basophils # (A) 0.05 X 10*3/uL (0.00-0.10); Basophils % (A) 0.7 %; Eosinophils # (A) 0.21 X 10*3/uL (0.04-0.35); HCT 29.8 % (39.6-50.0); HGB 9.3 d/dL (13.0-17.0); Lymphocytes # (A) 1.18 X 10*3/uL (0.90-5.00); Lymphocytes % (A) 16.6 %; MCH 31.8 pg (27.0-32.0); MCHC 31.2 d/dL (32.0-37.0); MCV 102.1 FL (80.0-97.0); Monocytes # (A) 0.58 X 10*3/uL (0.20-1.00); Monocytes % (A) 8.2 %; NRBC Per 100 WBC 0.04 X 10*3/uL (0.00-0.01); Neutrophils # (A) 4.85 X 10*3/uL (1.80-7.70); Neutrophils % (A) 68.4 %; Platelet Count 225 X 10*3/uL (140-440); RBC 2.92 X 10*6/uL (4.40-5.60); RDW 17.2 % (11.5-14.5); WBC 7.09 X 10*3/uL (4.50-10.00)
[2023-01-03 09:52] LABS: ALT 127 U/L (10-49); AST 62 U/L (14-35); Albumin 3.2 d/dL (3.8-4.9); Alkaline Phosphatase 73 U/L (41-126); BUN/Creat Ratio 23.71 Ratio (12.00-20.00); Blood Urea Nitrogen 16.6 mg/dL (9.0-27.0); Calcium 8.6 mg/dL (8.7-10.3); Carbon Dioxide 26.5 mmol/L (21.6-31.8); Chloride 105 mmol/L (96-109); Glucose 119 mg/dL (70-110); Sodium 141 mmol/L (135-145); Total Bilirubin 2.3 mg/dL (0.3-1.2); Total Protein 5.2 d/dL (6.2-8.2)
[2023-01-03 11:12] LABS: Magnesium 2.1 mg/dL (1.5-2.4); Phosphorus 3.9 mg/dL (2.4-5.1)
[2023-01-03] MEDS ORDERED: FUROSEMIDE 10 MG TAB PO STA (11:31)
[2023-01-03] MEDS: FUROSEMIDE 10 MG/ML 2 ML VIAL IV SCH ×2 (12:08→21:28)
--- NOTE | 2023-01-03 14:27 | P.PN ---
Subjective Progress Note Date: 01/03/23 CHIEF COMPLAINT: Acute appendicitis HISTORY OF PRESENT ILLNESS: Patient is status post laparoscopic appendectomy on 12/22/22. Patient's bedside chair. He is feeling better. He is having bowel movements and flatus. Denies any nausea vomiting. Asking for advancement of diet. Afebrile. WBC 7.09 Hgb 9.3 LFTs trending down. Color ultrasound hepatic cyst. Limited visualization of the gallbladder PHYSICAL EXAM: VITAL SIGNS: Reviewed. GENERAL: Well-developed in no acute distress. ABDOMEN: Soft. Nondistended. Patient does have extensive bruising across the low lower abdomen and upper abdomen extends down into the thighs NEUROLOGIC: Alert and oriented. Cranial nerves II through XII grossly intact. ASSESSMENT: 1. Acute appendicitis status post laparoscopic appendectomy 2. Hemoperitoneum noted on CT. HGB stable 3. Postoperative Ileus secondary to appendicitis 4. Urinary retention resolved 5. Elevated LFTs PLAN: -Advance diet to regular -Discontinue TPN -Diuretics ordered per medicine service for lower extremity edema -Encouraged patient to ambulate and use incentive spirometer -Continue IV antibiotics -Repeat CMP in AM -Anticipate discharge tomorrow -SCDs for DVT prophylaxis Physician Cadd Manager note has been reviewed by physician. Signing provider agrees with the documented findings, assessment, and plan of care. Objective - Vital Signs Vital signs: Vital Signs Temp 97.8 F 01/03/23 07:20 Pulse 72 01/03/23 07:20 Resp 18 01/03/23 09:05 BP 124/72 01/03/23 07:20 Pulse Ox 94 L 01/03/23 09:07 FiO2 21 01/03/23 09:07 Intake & Output 01/02/23 01/03/23 01/03/23 18:59 06:59 18:59 Intake Total 720 200 Output Total 1600 1600 Balance -880 -1600 200 Weight 93.894 kg Intake: Oral 720 200 Output: Urine 1600 1600 Other: Voiding Method Toilet Toilet # Voids 3 - Labs CBC & Chem 7: 01/03/23 05:50 01/03/23 05:50 Labs: Abnormal Lab Results - Last 24 Hours (Table) 01/03/23 01/03/23 Range/Units 05:50 05:50 RBC 2.92 L (4.40-5.60) X 10*6/uL Hgb 9.3 L (13.0-17.0) d/dL Hct 29.8 L (39.6-50.0) % MCV 102.1 H (80.0-97.0) FL MCHC 31.2 L (32.0-37.0) d/dL RDW 17.2 H (11.5-14.5) % NRBC/100 WBC Diff 0.04 H (0.00-0.01) X 10*3/uL BUN/Creatinine Ratio 23.71 H (12.00-20.00) Ratio Glucose 119 H (70-110) mg/dL Calcium 8.6 L (8.7-10.3) mg/dL Total Bilirubin 2.3 H (0.3-1.2) mg/dL AST 62 H (14-35) U/L ALT 127 H (10-49) U/L Total Protein 5.2 L (6.2-8.2) d/dL Albumin 3.2 L (3.8-4.9) d/dL
--- NOTE | 2023-01-03 20:21 | P.PN ---
Progress Note - Text Progress Note Date: 01/03/23 Hospital course: patient is a 67-year-old gentleman with no significant past medical history who presented to the ER for right lower quadrant abdominal pain. Patient was sent in from urgent care. Patient has been having this abdominal pain for the last few days, intermittent, nonradiating. Denies any fever or chills. Was having nausea but no vomiting. Because of abdominal pain, he was referred to ER for suspicion of acute appendicitis Initial lab work done in the ER showed WBC 10.3, hemoglobin 15.7, platelet, 91, sodium 136, potassium 4.4, BUN 15, creatinine 0.85, bilirubin 1.5 CT abdominal and pelvis done showed severe inflammatory changes in right lower quadrant most likely on the basis of acute appendicitis. Patient was admitted to surgery service, patient underwent left pubic appendicectomy. Postoperative medical team consulted 12/24. Patient seen and examined. Patient has a Harrington in place. Passing gas. 12/25. Patient seen and examined. Blood work done this morning showed WBC 8.1, hemoglobin 7.8, platelet count 219. Complaining of abdominal distention. CT abdominal and pelvis ordered December 26: I assumed care of the patient today. NG tube accidentally fell out. Patient is nothing by mouth. No flatus. Has a Harrington catheter. While abdominal pain. Discussed with the patient increase activity. Chewing gum ordered. December 27: Patient has been up to the bathroom. Have a bowel movement. No nausea vomiting. Remains nothing by mouth. No abdominal bloating or pain. Seen by surgery. Continue current treatment. December 28: Sitting up in a chair. Minimal abdominal pain. No nausea vomiting. Nothing by mouth. Did pass a small amount of flatus. Ambulating. In the hallway December 29: Up in a chair. Ambulating. Did have a bout of vomiting last night. Some flatus this morning. Remains nothing by mouth. PICC line placed today. TPN and lipid started. December 30: Patient had a bowel movement last night and this morning. Started on clear liquids. Patient getting TPN and lipids. Ambulating in the hallway. December 31: On clear liquid diet. Did vomit once yesterday. Feels a bit bloated. Had a couple loose stools. Abdominal pain 3-4 out of 10. Getting in the hallway. Discussed with the patient is liquids. TPN and lipids. January 01: Remains on clear liquid. Patient again vomited last night. Some abdominal discomfort and slight distention. Has been ambulating. Continues with TPN and lipids. Some loose stool. January 02: Since yesterday and no vomiting. Has had some loose stools. Minimal pain. Continues on TPN and lipid. Ambulating. Advance to full liquid diet. X-rays reviewed by me shows multiple A levels. January 03: Doing better. No further nausea vomiting. Having loose stools. No abdominal pain. Having some loose stools. Advance to regular diet by surgery. Because of significant lower extremity edema and some lung crackles giving IV Lasix 2 doses today. Discuss[address] with Dr. Barraza to hold back today. Discussed with patient reason for holding back today. Active Medications Acetaminophen (Acetaminophen Tab 325 Mg Tab) 650 mg PO Q4H PRN PRN Reason: Pain Hydrocodone Bitart/Acetaminophen (Hydrocodone/Apap 5-325mg 1 Each Tab) 1 each PO Q4HR PRN PRN Reason: Pain Last Admin: 12/30/22 02:29 Dose: 1 each Benzocaine (Benzocaine Cache 1 Can) 1 spray MUCOUS MEM QID PRN; Protocol PRN Reason: Mouth Irritation Diphenhydramine HCl (Diphenhydramine 25 Mg Cap) 25 mg PO HS PRN PRN Reason: Moderate Anxiety Furosemide (Furosemide 10 Mg/Ml 2 Ml Vial) 20 mg IV Q12HR BUTCH Last Admin: 01/03/23 12:08 Dose: 20 mg Hydromorphone HCl (Hydromorphone 0.5 Mg/0.5 Ml Syringe) 0.5 mg IVP Q4H PRN PRN Reason: Pain Last Admin: 12/29/22 00:08 Dose: 0.5 mg Hydromorphone HCl (Hydromorphone 1 Mg/Ml 1 Ml Syringe) 1 mg IVP Q4HR PRN PRN Reason: Severe Pain (Scale 7 to 10) Last Admin: 12/29/22 21:56 Dose: 1 mg Piperacillin Sod/Tazobactam (Sod 3.375 gm/ Sodium Chloride) 100 mls @ 25 mls/hr IVPB Q8HR BUTCH; Protocol Last Admin: 01/03/23 16:51 Dose: 25 mls/hr Fat Emulsion Intravenous 250 (ml/ IV Solution) 250 mls @ 21 mls/hr IV MoTh [facility] Last Admin: 01/02/23 16:44 Dose: 21 mls/hr Metoclopramide HCl (Metoclopramide 10 Mg Tab) 10 mg PO ACHS [facility] Last Admin: 01/03/23 17:01 Dose: 10 mg Naloxone HCl (Naloxone 0.4 Mg/Ml 1 Ml Vial) 0.2 mg IV Q2M PRN PRN Reason: Opioid Reversal Ondansetron HCl (Ondansetron 4 Mg/2 Ml Vial) 4 mg IVP Q6HR PRN PRN Reason: Nausea And Vomiting Last Admin: 12/31/22 21:15 Dose: 4 mg Tamsulosin HCl (Tamsulosin 0.4 Mg Cap.Er.24h) 0.4 mg PO PC-BRKFST [facility] Last Admin: 01/03/23 07:41 Dose: 0.4 mg Zolpidem Tartrate (Zolpidem 5 Mg Tab) 5 mg PO HS PRN PRN Reason: Insomnia Stop: 01/05/23 09:06 Last Admin: 01/02/23 22:34 Dose: 5 mg On examination: VITAL SIGNS: 97.9, 60, 18, 100/72, 93% room air GENERAL APPEARANCE:, sitting up in a chair comfortable. HEENT: Normal external appearance of nose and ear. Oral cavity normal EYES: Pupils equal. Conjunctiva normal. NECK: JVD not raised. Mass not palpable. RESPIRATORY: Respiratory effort normal. Lungs crackles CARDIOVASCULAR: First and second sounds normal. Significant edema ABDOMEN: Soft. Liver and spleen not palpable. Slight distention. No mass palpable. Dressing over incision site. Also is present PSYCHIATRY: Alert and oriented x3. Mood and affect normal. INVESTIGATIONS, reviewed in the clinical context: January 02: Potassium 3.4 December 31: Sodium 144 potassium 3.6 creatinine 0.62 December 26: White count 6.2 hemoglobin 7.5 platelets 195 Admission labs: White count 11.4 hemoglobin 11 platelets 200 potassium 5.2 creatinine 1.0 Assessment and plan -Acute appendicitis status post laparoscopic appendicectomy-on 12/22/2022 -Clinically, postop ileus.: Improving Had NG tube Loose stool.. No further vomiting Advanced to full liquid per surgery -Acute postprocedure blood loss anemia. IV Ferrlecit 2 doses, received -Hypoalbuminemia, reactive -Primary osteoarthritis Pain medications as needed 2 -Clinical fluid overload with edema and basal crackles IV Lasix 20 mg 2 -BPH Harrington catheter. Flomax. -TPN and lipid started December 29 -Full code IV Lasix 20 mg 2. Other medications continue. Discussed with Dr. Barraza to hold back for another one day. Discussed with patient.
[2023-01-04] MEDS: PIPERACILLIN-TAZOBACTAM 3.375 GM in SODIUM CHLORIDE 0.9% 100 ML IVPB SCH ×2 (00:26→08:24)
[2023-01-04] MEDS: METOCLOPRAMIDE 10 MG TAB PO SCH ×2 (06:54→15:11)
[2023-01-04 07:03] LABS: ALT 137 U/L (4-49); AST 68 U/L (17-59); African American GFR (CKD) >90 (>60 ml/min/1.73 sqM); Albumin/Globulin Ratio 1.2; Alkaline Phosphatase 79 U/L (38-126); Anion Gap 7 mmol/L; Blood Urea Nitrogen 20 mg/dL (9-20); Calcium 8.4 mg/dL (8.4-10.2); Carbon Dioxide 27 mmol/L (22-30); Chloride 103 mmol/L (98-107); Globulin 2.6 g/dL; Glucose 89 mg/dL (74-99); Magnesium 2.2 mg/dL (1.6-2.3); Non-African American GFR(CKD) >90 (>60 ml/min/1.73 sqM); Phosphorus 4.4 mg/dL (2.5-4.5); Potassium 4.2 mmol/L (3.5-5.1); Sodium 137 mmol/L (137-145); Total Bilirubin 2.4 mg/dL (0.2-1.3); Total Protein 5.6 g/dL (6.3-8.2)
[2023-01-04 08:24] VITALS: BP 112/71; PULSE 91; RESP 16; TEMP 97.9
[2023-01-04] MEDS: TAMSULOSIN 0.4 MG CAP.ER.24H PO SCH (08:25)
[2023-01-04] MEDS: FUROSEMIDE 10 MG/ML 2 ML VIAL IV SCH (08:25)
[2023-01-04] MEDS ORDERED: POTASSIUM CHLORIDE ER 20 MEQ TAB.ER PO SCH (09:00)
--- NOTE | 2023-01-04 13:06 | P.DS ---
Providers Date of admission: 12/22/22 15:39 Expected date of discharge: 01/04/23 Attending physician: Curry Barraza Consults: 12/22/22 15:44 Consult Physician Routine Consulting Provider: Magdiel Mtz Consult Reason/Comments: medical management Do you want consulting provider notified?: Yes Primary care physician: [facility] Course: Discharge diagnosis 1. Acute appendicitis status post laparoscopic appendectomy 2. Hemoperitoneum noted on CT. HGB stable 3. Postoperative Ileus secondary to appendicitis 4. Urinary retention resolved 5. Elevated LFTs Hospital course This is a 67-year-old male who presented with right lower quadrant abdominal pain. CAT scan did show evidence of acute appendicitis. He is status post laparoscopic appendectomy. During his hospitalization patient had postoperative ileus secondary to his appendicitis. This has resolved. Patient did have a repeat CAT scan of the abdomen after surgery that had shown mixed density fluid through abdomen compatible with hemoperitoneum. Findings compatible with recent appendectomy with hemorrhage. Patient's hemoglobin and vitals have remained stable. His pain is controlled. He is tolerating diet. He is having bowel movements. He is afebrile. He is stable for discharge. Please refer to chart for any further details. Physician Vacuum Drier Tender note has been reviewed by physician. Signing provider agrees with the documented findings, assessment, and plan of care. Patient Condition at Discharge: Stable Plan - Discharge Summary Discharge Rx Participant: Yes New Discharge Prescriptions: New Ibuprofen [Motrin] 600 mg PO Q8HR PRN #30 tab PRN Reason: Pain Acetaminophen Tab [Tylenol Tab] 650 mg PO Q4H PRN #30 tablet PRN Reason: Pain Psyllium Husk 100% [Metamucil Packet] 6 gm PO DAILY #1 packet metroNIDAZOLE [Flagyl] 500 mg PO TID 10 Days #30 tab oxyCODONE HCL [OxyIR] 5 mg PO Q6H PRN 3 Days #12 tab PRN Reason: Pain Tamsulosin [Flomax] 0.4 mg PO PC-BRKFST #30 cap Levofloxacin [Levaquin] 500 mg PO DAILY 10 Days #10 tab Discharge Medication List Acetaminophen Tab [Tylenol Tab] 650 mg PO Q4H PRN #30 tablet 12/23/22 [Rx] Ibuprofen [Motrin] 600 mg PO Q8HR PRN #30 tab 09/22/23 [Rx] oxyCODONE HCL [OxyIR] 5 mg PO Q6H PRN 3 Days #12 tab 12/23/22 [Rx] Levofloxacin [Levaquin] 500 mg PO DAILY 10 Days #10 tab 01/04/23 [Rx] Psyllium Husk 100% [Metamucil Packet] 6 gm PO DAILY #1 packet 01/04/23 [Rx] Tamsulosin [Flomax] 0.4 mg PO PC-BRKFST #30 cap 01/04/23 [Rx] metroNIDAZOLE [Flagyl] 500 mg PO TID 10 Days #30 tab 01/04/23 [Rx] Follow up Appointment(s)/Referral(s): Seferino Esteban DO [Primary Care Provider] - 1-2 days Curry Barraza MD [STAFF PHYSICIAN] - 1 Week Activity/Diet/Wound Care/Special Instructions: No driving while taking OxyIR No lifting over 10 pounds Shower daily. No soaking or tub baths for 2 weeks Very light activity until you are reevaluated at your follow up appointment with your surgeon Discharge Disposition: HOME SELF-CARE
--- NOTE | 2023-01-04 19:27 | P.PN ---
Progress Note - Text Progress Note Date: 01/04/23 Hospital course: patient is a 67-year-old gentleman with no significant past medical history who presented to the ER for right lower quadrant abdominal pain. Patient was sent in from urgent care. Patient has been having this abdominal pain for the last few days, intermittent, nonradiating. Denies any fever or chills. Was having nausea but no vomiting. Because of abdominal pain, he was referred to ER for suspicion of acute appendicitis Initial lab work done in the ER showed WBC 10.3, hemoglobin 15.7, platelet, 91, sodium 136, potassium 4.4, BUN 15, creatinine 0.85, bilirubin 1.5 CT abdominal and pelvis done showed severe inflammatory changes in right lower quadrant most likely on the basis of acute appendicitis. Patient was admitted to surgery service, patient underwent left pubic appendicectomy. Postoperative medical team consulted 12/24. Patient seen and examined. Patient has a Harrington in place. Passing gas. 12/25. Patient seen and examined. Blood work done this morning showed WBC 8.1, hemoglobin 7.8, platelet count 219. Complaining of abdominal distention. CT abdominal and pelvis ordered December 26: I assumed care of the patient today. NG tube accidentally fell out. Patient is nothing by mouth. No flatus. Has a Harrington catheter. While abdominal pain. Discussed with the patient increase activity. Chewing gum ordered. December 27: Patient has been up to the bathroom. Have a bowel movement. No nausea vomiting. Remains nothing by mouth. No abdominal bloating or pain. Seen by surgery. Continue current treatment. December 28: Sitting up in a chair. Minimal abdominal pain. No nausea vomiting. Nothing by mouth. Did pass a small amount of flatus. Ambulating. In the hallway December 29: Up in a chair. Ambulating. Did have a bout of vomiting last night. Some flatus this morning. Remains nothing by mouth. PICC line placed today. TPN and lipid started. December 30: Patient had a bowel movement last night and this morning. Started on clear liquids. Patient getting TPN and lipids. Ambulating in the hallway. December 31: On clear liquid diet. Did vomit once yesterday. Feels a bit bloated. Had a couple loose stools. Abdominal pain 3-4 out of 10. Getting in the hallway. Discussed with the patient is liquids. TPN and lipids. January 01: Remains on clear liquid. Patient again vomited last night. Some abdominal discomfort and slight distention. Has been ambulating. Continues with TPN and lipids. Some loose stool. January 02: Since yesterday and no vomiting. Has had some loose stools. Minimal pain. Continues on TPN and lipid. Ambulating. Advance to full liquid diet. X-rays reviewed by me shows multiple A levels. January 03: Doing better. No further nausea vomiting. Having loose stools. No abdominal pain. Having some loose stools. Advance to regular diet by surgery. Because of significant lower extremity edema and some lung crackles giving IV Lasix 2 doses today. Discussed with Dr. Barraza to hold back today. Discussed with patient reason for holding back today. January 04: Lower extremity edema. No significant pubic IV Lasix. Did receive 1 dose of this morning. Being discharged per Dr. Barraza. Will complete antibiotics per him. Questions answered. Follow-up with PCP. Current medications reviewed On examination: VITAL SIGNS: 97.9, 91, 16, 11 2 x 71, 94% room air GENERAL APPEARANCE:, sitting up in a chair comfortable. HEENT: Normal external appearance of nose and ear. Oral cavity normal EYES: Pupils equal. Conjunctiva normal. NECK: JVD not raised. Mass not palpable. RESPIRATORY: Respiratory effort normal. Lungs clear CARDIOVASCULAR: First and second sounds normal. Diminished edema ABDOMEN: Soft. Liver and spleen not palpable. Soft. No mass palpable. Dressing over incision site. Bruising from subcu Lovenox. PSYCHIATRY: Alert and oriented x3. Mood and affect normal. INVESTIGATIONS, reviewed in the clinical context: January 04: Potassium 4.2 creatinine 0.68. White count 7.09 December 31: Sodium 144 potassium 3.6 creatinine 0.62 December 26: White count 6.2 hemoglobin 7.5 platelets 195 Admission labs: White count 11.4 hemoglobin 11 platelets 200 potassium 5.2 creatinine 1.0 Assessment and plan -Acute appendicitis status post laparoscopic appendicectomy-on 12/22/2022 -Clinically, postop ileus.: Resolved Had NG tube Tolerating diet. Having bowel movements. -Acute postprocedure blood loss anemia. IV Ferrlecit 2 doses, received -Hypoalbuminemia, reactive -Primary osteoarthritis Pain medications as needed 2 -Clinical fluid overload with edema and basal crackles: Improved IV Lasix 20 mg 2 given -BPH Flomax. -TPN and lipid started December 29-discontinued -Full code Being discharged home. Antibiotics per surgery. Questions answered. Follow-up with PCP next week.
== END 2023-01-04 15:31 | disposition home or self-care (01) | DRG 397 ==
LOC: EC 12:31 → 6NMEDSUR 15:38 → OBSVTOIN 15:39 → 4SSUR 17:59
PROVIDERS: ADMIT Surgery; ATTEND Surgery
PROC: 0DTJ4ZZ Resection of Appendix, Percutaneous Endoscopic Approach (ICD-10-PCS; principal; 2022-12-22 08:55)
PROC: 02HV33Z Insertion of Infusion Device into Superior Vena Cava, Percutaneous Approach (ICD-10-PCS; 2022-12-29)
PROC: 3E0436Z Introduction of Nutritional Substance into Central Vein, Percutaneous Approach (ICD-10-PCS; 2022-12-29)
DX: K35.80 Unspecified acute appendicitis (principal); K66.1 Hemoperitoneum; K56.7 Ileus, unspecified; D62 Acute posthemorrhagic anemia; E88.09 Other disorders of plasma-protein metabolism, not elsewhere classified; K76.89 Other specified diseases of liver; E87.70 Fluid overload, unspecified; F41.9 Anxiety disorder, unspecified; G47.00 Insomnia, unspecified; N40.1 Benign prostatic hyperplasia with lower urinary tract symptoms; R33.8 Other retention of urine; M19.91 Primary osteoarthritis, unspecified site; L57.0 Actinic keratosis; Z86.711 Personal history of pulmonary embolism; Z88.1 Allergy status to other antibiotic agents
CPT/HCPCS: 36415; 36573; 74019; 74176; 74177; 76705; 80048; 80053; 81001; 82330; 83605; 83690; 83735; 84100; 84478; 85025; 85027; 87040; 88304; 94760; 96361; 96365; 96375; 99285

== ENCOUNTER 2023-01-20 13:44 | Emergency (ER) | payer BC ==
--- NOTE | 2023-01-20 14:29 | ED ---
Abdominal Pain HPI - General Source: RN notes reviewed <Nasrin Marrero - Last Filed: 01/20/23 14:28> <Dave Neely - Last Filed: 01/20/23 23:39> - General Stated Complaint: post surgery-vomiting Time Seen by Provider: 01/20/23 14:28 - History of Present Illness Initial Comments: Patient is a 67-year-old male who presents to the emergency department for abdominal pain and vomiting. Patient did have appendectomy approximately one month ago his fever and chills (Nasrin Marrero) Patient is a 67-year-old male who was originally evaluated as a quick note. Had a recent appendectomy 1 month ago and presents with subjective chills and possible fever as well as nonstick abdominal pain with nausea and nonbilious nonbloody emesis. Symptoms have been ongoing for the last 2 days. Patient has nonspecific nonfocal abdominal pain. Denies chest pain or shortness of breath. Denies diarrhea. Denies any constipation. Has no urinary complaints. Presents for further evaluation at this time. (Dave Neely) - Related Data Previous Rx's Medication Instructions Recorded Acetaminophen Tab [Tylenol Tab] 650 mg PO Q4H PRN #30 tablet 12/23/22 Ibuprofen [Motrin] 600 mg PO Q8HR PRN #30 tab 12/23/22 oxyCODONE HCL [OxyIR] 5 mg PO Q6H PRN 3 Days #12 tab 12/23/22 Levofloxacin [Levaquin] 500 mg PO DAILY 10 Days #10 tab 01/04/23 Psyllium Husk 100% [Metamucil 6 gm PO DAILY #1 packet 01/04/23 Packet] Tamsulosin [Flomax] 0.4 mg PO PC-BRKFST #30 cap 01/04/23 metroNIDAZOLE [Flagyl] 500 mg PO TID 10 Days #30 tab 01/04/23 Famotidine [Pepcid] 20 mg PO DAILY 14 Days #14 tablet 01/20/23 Allergies Allergy/AdvReac Type Severity Reaction Status Date / Time azithromycin Allergy Intermediate Rash/Hives Verified 12/22/22 16:15 [From Zithromax Z-Alex] Review of Systems ROS Other: All systems not noted in ROS Statement are negative. <Nasrin Marrero - Last Filed: 01/20/23 14:28> ROS Other: All systems not noted in ROS Statement are negative. <Dave Neely - Last Filed: 01/20/23 23:39> ROS Statement: Those systems with pertinent positive or pertinent negative responses have been documented in the HPI. Review of Systems: CONST: Denies fever EYES: Denies blurry vision ENT: Denies nasal congestion C/V: Denies Chest pain RESP: Denies shortness of breath GI: Endorses abdominal pain : Denies dysuria SKIN: Denies rash. MSK: Denies joint pain. NEURO: Denies headache (Dave Neely) Past Medical History Past Medical History: Pulmonary Embolus (PE) Additional Past Medical History / Comment(s): SOLAR KERATOSIS. PRE CANCEROUS LESIONS-SCALP, FACE, HEAD. CURRENTLY ON ANTIBIOTICS FOR UTI SINCE 12/20/16 History of Any Multi-Drug Resistant Organisms: None Reported Past Surgical History: Orthopedic Surgery, Tonsillectomy Additional Past Surgical History / Comment(s): LT PATELLAR REPAIR. COLONOSCOPY Past Anesthesia/Blood Transfusion Reactions: Previous Problems w/ Anesthesia Additional Past Anesthesia/Blood Transfusion Reaction / Comment(s): PE 6 WEEKS AFTER KNEE SX Past Psychological History: No Psychological Hx Reported Smoking Status: Never smoker Past Alcohol Use History: None Reported Past Drug Use History: None Reported - Past Family History Mother History Unknown: Yes Additional Family Medical History / Comment(s): PT ADOPTED-FAMILY HX UNKNOWN <Nasrin Marrero - Last Filed: 01/20/23 14:28> General Exam <Nasrin Marrero - Last Filed: 01/20/23 14:28> <Dave Neely - Last Filed: 01/20/23 23:39> - General Exam Comments Initial Comments: Visual Physical Exam Vital signs reviewed General: Well-appearing, nontoxic, no acute distress. Head: Normocephalic, atraumatic Eyes: PERRLA, EOMI ENT: Airway patent Chest: Nonlabored breathing Skin: No visual rash, normal skin tone Neuro: Alert and oriented 3 Musculoskeletal: No gross abnormalities (Nasrin Marrero) General: Appears in no acute distress. HEAD: Normal with no signs of head trauma. EYES: PERRLA, EOMI, conjunctiva normal, no discharge. ENT: Hearing grossly intact, normal oropharynx. RESPIRATORY: Clear breath sounds bilaterally. No wheezes, rales, or rhonchi. C/V: Regular rate and rhythm. S1 and S2 auscultated, no edema, peripheral pulses 2+ and intact throughout ABD: Abd is soft, no significant tenderness to palpation., nondistended. No guarding. No rebound tenderness. No peritoneal signs. EXT: Normal range of motion, no obvious deformity SKIN: No rashes or lesions observed on exposed skin. NEURO: Alert and oriented 4. (Dave Neely) Course Vital Signs 01/20/23 01/20/23 01/20/23 14:27 18:13 19:51 Temperature 98.4 F Pulse Rate 100 89 88 Respiratory 20 18 18 Rate Blood Pressure 121/75 124/95 127/69 O2 Sat by Pulse 95 96 96 Oximetry Medical Decision Making <Nasrin Marrero - Last Filed: 01/20/23 14:28> - Lab Data Result diagrams: 01/20/23 14:36 01/20/23 14:36 - EKG Data -: EKG Interpreted by Me <Dave Neely - Last Filed: 01/20/23 23:39> - Medical Decision Making I performed the QuickNote portion of this chart - Nasrin Marrero PA-C (Nasrin Marrero) Was pt. sent in by a medical professional or institution (JANICE Mast, GEOTECHNICAL ENGINEER, urgent care, hospital, or fpc...) When possible be specific @ -No Did you speak to anyone other than the patient for history (EMS, parent, family, police, friend...)? What history was obtained from this source @ -No Did you review nursing and triage notes (agree or disagree)? Why? @ -I reviewed and agree with nursing and triage notes Were old charts reviewed (outside hosp., previous admission, EMS record, old EKG, old radiological studies, urgent care reports/EKG's, fpc records)? Report findings @ -Old charts reviewed Differential Diagnosis (chest pain, altered mental status, abdominal pain women, abdominal pain men, vaginal bleeding, weakness, fever, dyspnea, syncope, headache, dizziness, GI bleed, back pain, seizure, CVA, palpatations, mental health, musculoskeletal)? @ -Differential Abdominal Pain Men: Appendicitis, cholecystitis, diverticulosis, ischemic bowel, pancreatitis, hepatitis, UTI, gastroenteritis, AAA, incarcerated hernia, bowel obstruction, constipation, inflammatory bowel, hepatitis, peptic ulcer disease, splenic infarction, perforated viscus, testicular torsion, this is not meant to be an all-inclusive list EKG interpreted by me (3pts min.). @ -As above X-rays interpreted by me (1pt min.). @ -None done CT interpreted by me (1pt min.). @ -CT reveals no obvious acute intra-abdominal process. Possible findings of ileus which is not fit the current presentation. Also has findings consistent with recent surgery. U/S interpreted by me (1pt. min.). @ -None done What testing was considered but not performed or refused? (CT, X-rays, U/S, labs)? Why? @ -None What meds were considered but not given or refused? Why? @ -None Did you discuss the management of the patient with other professionals (professionals i.e. , PA, GEOTECHNICAL ENGINEER, lab, RT, psych nurse, social group worker, manager development, teacher, police officer, correctional casework specialist)? Give summary @ -No Was smoking cessation discussed for >3mins.? @ -No Was critical care preformed (if so, how long)? @ -No Were there social determinants of health that impacted care today? How? (Homelessness, low income, unemployed, alcoholism, drug addiction, transportation, low edu. Level, literacy, decrease access to med. care, shelter, rehab)? @ -No Was there de-escalation of care discussed even if they declined (Discuss DNR or withdrawal of care, Hospice)? DNR status @ -No What co-morbidities impacted this encounter? (DM, HTN, Smoking, COPD, CAD, Cancer, CVA, ARF, Chemo, Hep., AIDS, mental health diagnosis, sleep apnea, morbi d obesity)? @ -None Was patient admitted / discharged? Hospital course, mention meds given and route, prescriptions, significant lab abnormalities, going to OR and other pertinent info. @ -Based on the patient's presentation and physical exam, concern for abdominal process for his current symptoms. Had recent surgery. Patient Was started in triage we will obtain abdominal laboratory studies as well as a CT abdomen and pelvis. He was in agreement this plan. He will be symptomatically treated with IV Toradol, Protonix, fluids, Maalox. Vital signs within acceptable limits. Patient's laboratory studies are all within acceptable limits. CT imaging unremarkable. On reevaluation, discussed results. Excessive understanding. He'll be discharged home at this time. Strict return precautions discussed. Patient given a prescription for Pepcid. I will provide the patient with a prescription for Pepcid. I instructed the patient to follow up with their PCP in the next 1-3 days. I explained that the patient should return to the emergency department if they experience any worsening symptoms. Strict return precautions were discussed with the patient. The patient expressed understanding of these instructions. I answered all questions that the patient had. The patient was discharged home in good condition with their prescriptions and follow up information. Undiagnosed new problem with uncertain prognosis? @ -No Drug Therapy requiring intensive monitoring for toxicity (Heparin, Nitro, Insulin, Cardizem)? @ -No Were any procedures done? @ -No Diagnosis/symptom? @ -Abdominal pain of unknown etiology, nausea and vomiting Acute, or Chronic, or Acute on Chronic? @ -Acute Uncomplicated (without systemic symptoms) or Complicated (systemic symptoms)? @ -Complicated Side effects of treatment? @ -No Exacerbation, Progression, or Severe Exacerbation? @ -No Poses a threat to life or bodily function? How? (Chest pain, USA, NM, pneumonia, PE, COPD, DKA, ARF, appy, cholecystitis, CVA, Diverticulitis, Homicidal, Suicidal, threat to staff... and all critical care pts) @ -No (Dave Neely) - Lab Data Lab Results 01/20/23 01/20/23 01/20/23 Range/Units 14:36 14:36 14:36 WBC 6.4 (3.8-10.6) k/uL RBC 4.26 L (4.30-5.90) m/uL Hgb 13.3 D (13.0-17.5) gm/dL Hct 41.9 (39.0-53.0) % MCV 98.5 (80.0-100.0) fL MCH 31.3 (25.0-35.0) pg MCHC 31.8 (31.0-37.0) g/dL RDW 14.8 (11.5-15.5) % Plt Count 249 (150-450) k/uL MPV 8.2 Neutrophils % 48 % Lymphocytes % 39 % Monocytes % 6 % Eosinophils % 4 % Basophils % 0 % Neutrophils # 3.1 (1.3-7.7) k/uL Lymphocytes # 2.5 (1.0-4.8) k/uL Monocytes # 0.4 (0-1.0) k/uL Eosinophils # 0.3 (0-0.7) k/uL Basophils # 0.0 (0-0.2) k/uL Sodium 137 (137-145) mmol/L Potassium 4.5 (3.5-5.1) mmol/L Chloride 102 (98-107) mmol/L Carbon Dioxide 27 (22-30) mmol/L Anion Gap 8 mmol/L BUN 16 (9-20) mg/dL Creatinine 0.62 L (0.66-1.25) mg/dL Est GFR (CKD-EPI)AfAm >90 (>60 ml/min/1.73 sqM) Est GFR (CKD-EPI)NonAf >90 (>60 ml/min/1.73 sqM) Glucose 102 H (74-99) mg/dL Plasma Lactic Acid Rajeev 0.8 (0.7-2.0) mmol/L Calcium 9.3 (8.4-10.2) mg/dL Total Bilirubin 0.8 (0.2-1.3) mg/dL AST 27 (17-59) U/L ALT 27 (4-49) U/L Alkaline Phosphatase 59 (38-126) U/L Total Protein 6.8 (6.3-8.2) g/dL Albumin 3.8 (3.5-5.0) g/dL Lipase 99 (23-300) U/L Urine Color Urine Appearance (Clear) Urine pH (5.0-8.0) Ur Specific [place] (1.001-1.035) Urine Protein (Negative) Urine Glucose (UA) (Negative) Urine Ketones (Negative) Urine Blood (Negative) Urine Nitrite (Negative) Urine Bilirubin (Negative) Urine Urobilinogen (<2.0) mg/dL Ur Leukocyte Esterase (Negative) 01/20/23 Range/Units 14:36 WBC (3.8-10.6) k/uL RBC (4.30-5.90) m/uL Hgb (13.0-17.5) gm/dL Hct (39.0-53.0) % MCV (80.0-100.0) fL MCH (25.0-35.0) pg MCHC (31.0-37.0) g/dL RDW (11.5-15.5) % Plt Count (150-450) k/uL MPV Neutrophils % % Lymphocytes % % Monocytes % % Eosinophils % % Basophils % % Neutrophils # (1.3-7.7) k/uL Lymphocytes # (1.0-4.8) k/uL Monocytes # (0-1.0) k/uL Eosinophils # (0-0.7) k/uL Basophils # (0-0.2) k/uL Sodium (137-145) mmol/L Potassium (3.5-5.1) mmol/L Chloride (98-107) mmol/L Carbon Dioxide (22-30) mmol/L Anion Gap mmol/L BUN (9-20) mg/dL Creatinine (0.66-1.25) mg/dL Est GFR (CKD-EPI)AfAm (>60 ml/min/1.73 sqM) Est GFR (CKD-EPI)NonAf (>60 ml/min/1.73 sqM) Glucose (74-99) mg/dL Plasma Lactic Acid Rajeev (0.7-2.0) mmol/L Calcium (8.4-10.2) mg/dL Total Bilirubin (0.2-1.3) mg/dL AST (17-59) U/L ALT (4-49) U/L Alkaline Phosphatase (38-126) U/L Total Protein (6.3-8.2) g/dL Albumin (3.5-5.0) g/dL Lipase (23-300) U/L Urine Color Yellow Urine Appearance Clear (Clear) Urine pH 5.5 (5.0-8.0) Ur Specific [place] 1.019 (1.001-1.035) Urine Protein Negative (Negative) Urine Glucose (UA) Negative (Negative) Urine Ketones Negative (Negative) Urine Blood Negative (Negative) Urine Nitrite Negative (Negative) Urine Bilirubin Negative (Negative) Urine Urobilinogen <2.0 (<2.0) mg/dL Ur Leukocyte Esterase Negative (Negative) - EKG Data EKG Comments: 12-lead Electrocardiogram Interpretation Note EKG was reviewed and interpreted by myself. 12-lead ECG performed at 1454 is interpreted by me as revealing sinus tachycardia at a rate of 102 beats per minute. Left axis deviation. OK interval is 165 ms, QRS duration is 90 ms, QTc is 387 ms.. PVCs present. There were no ST or T wave abnormalities to suggest myocardial ischemia or injury. R wave progression across the precordium was satisfactory. By my interpretation this EKG is non-diagnostic for acute ischemia. (Dave Neely) Disposition <Nasrin Marrero - Last Filed: 01/20/23 14:28> Is patient prescribed a controlled substance at d/c from ED?: No Time of Disposition: 19:15 <Dave Neely - Last Filed: 01/20/23 23:39> Clinical Impression: Abdominal pain of unknown cause, Nausea and vomiting Disposition: HOME SELF-CARE Condition: Good Instructions (If sedation given, give patient instructions): Acute Nausea and Vomiting (ED), Abdominal Pain (ED) Prescriptions: Famotidine [Pepcid] 20 mg PO DAILY 14 Days #14 tablet Referrals: Seferino Esteban DO [Primary Care Provider] - 1-2 days
[2023-01-20 14:42] VITALS: TEMP 98.4
[2023-01-20 15:36] LABS: ALT 27 U/L (4-49); AST 27 U/L (17-59); African American GFR (CKD) >90 (>60 ml/min/1.73 sqM); Albumin 3.8 g/dL (3.5-5.0); Alkaline Phosphatase 59 U/L (38-126); Anion Gap 8 mmol/L; Blood Urea Nitrogen 16 mg/dL (9-20); Calcium 9.3 mg/dL (8.4-10.2); Carbon Dioxide 27 mmol/L (22-30); Chloride 102 mmol/L (98-107); Glucose 102 mg/dL (74-99); Lipase 99 U/L (23-300); Non-African American GFR(CKD) >90 (>60 ml/min/1.73 sqM); Potassium 4.5 mmol/L (3.5-5.1); Sodium 137 mmol/L (137-145); Total Bilirubin 0.8 mg/dL (0.2-1.3); Total Protein 6.8 g/dL (6.3-8.2)
[2023-01-20 15:51] LABS: Basophils % (A) 0 %; Eosinophils # (A) 0.3 k/uL (0-0.7); Eosinophils % (A) 4 %; HCT 41.9 % (39.0-53.0); Lymphocytes # (A) 2.5 k/uL (1.0-4.8); Lymphocytes % (A) 39 %; MCH 31.3 pg (25.0-35.0); MCHC 31.8 g/dL (31.0-37.0); MCV 98.5 fL (80.0-100.0); Mean Platelet Volume 8.2; Monocytes # (A) 0.4 k/uL (0-1.0); Monocytes % (A) 6 %; Neutrophils # (A) 3.1 k/uL (1.3-7.7); Neutrophils % (A) 48 %; Platelet Count 249 k/uL (150-450); RBC 4.26 m/uL (4.30-5.90); RDW 14.8 % (11.5-15.5); WBC 6.4 k/uL (3.8-10.6)
[2023-01-20 15:58] LABS: HGB 13.3 gm/dL (13.0-17.5)
[2023-01-20] MEDS ORDERED: MAG HYDROX/AL HYDROX/SIMETH 30 ML, HYOSCYAMINE ELIXIR 10 ML, LIDOCAINE 2% GLYDO JELLY 1... PO STA ×3 (18:04)
[2023-01-20] MEDS ORDERED: KETOROLAC 15 MG/ML 1 ML VIAL IVP STA (18:04)
[2023-01-20] MEDS ORDERED: PANTOPRAZOLE 40 MG/10 ML VIAL IVP STA (18:05)
[2023-01-20 18:27] VITALS: RESP 18
[2023-01-20 18:32] LABS: Appearance,Urine Clear (Clear); Bilirubin,Urine Negative (Negative); Blood,Urine Negative (Negative); Color,Urine Yellow; Glucose,Urine (UA) Negative (Negative); Ketones,Urine Negative (Negative); Leukocyte Esterase,Urine Negative (Negative); Nitrite,Urine Negative (Negative); PH, Urine 5.5 (5.0-8.0); Protein,Urine Negative (Negative); Specific Gravity,Urine 1.019 (1.001-1.035); Urobilinogen,Urine <2.0 mg/dL (<2.0)
--- NOTE | 2023-01-20 19:02 | CT ---
EXAMINATION TYPE: CT abdomen pelvis w con CT DLP: 1202.6 mGycm, Automated exposure control for dose reduction was used. DATE OF EXAM: 01/20/2023 6:36 PM COMPARISON: CT abdomen pelvis most recent from 12/25/2022 CLINICAL INDICATION:Male, 67 years old with history of mid abd pain with n/v; Mid abd pain with n/v. Appendectomy x1mo ago. TECHNIQUE: Axial CT of the abdomen and pelvis. Sagittal and coronal reformats were created on a [employer] workstation. Contrast used:100 ml mL of Isovue 300 with IV Contrast, (none if empty) Oral contrast used: without Oral Contrast (none if empty) FINDINGS: LOWER CHEST: Unremarkable ABDOMEN LIVER: Scattered simple appearing cysts. GALLBLADDER AND BILE DUCTS: Unremarkable. PANCREAS: Unremarkable. SPLEEN: Unremarkable. ADRENAL GLANDS: Unremarkable. KIDNEYS AND URETERS: No evidence of hydronephrosis or renal calculus. The ureters are unremarkable. PELVIS BLADDER: Unremarkable REPRODUCTIVE: Unremarkable. ABDOMEN & PELVIS STOMACH AND BOWEL: No evidence of bowel obstruction. Postsurgical changes compatible with appendectom y. Scattered colonic diverticula. Small bowel feces present throughout the right upper quadrant small bowel. Large amount of stool seen within the colon. A blind-ending outpouching in the right lower qu adrant near a loop of small bowel ileum. Series 203 image 36 PERITONEUM/RETROPERITONEUM: No evidence of pneumoperitoneum or free fluid. Resolution of prior hemope ritoneum. VASCULATURE: No evidence of aortic aneurysm. MUSCULOSKELETAL: No acute osseous abnormalities LYMPH NODES: No gross evidence for lymphadenopathy. SOFT TISSUE/ABDOMINAL WALL: Fat-containing umbilical hernia. IMPRESSION: 1. No evidence for organizing fluid collection or bowel obstruction. There is postsurgical changes r ight lower quadrant compatible with appendectomy. No evidence for bowel obstruction. There is small b owel feces however correlate for ileus. 2. Focal outpouching off the distal small bowel could represent a Meckel's diverticulum versus seque la prior surgery. 3. Colonic diverticulosis.
[2023-01-20] MEDS: SODIUM CHLORIDE 0.9% 1,000 ML IV STA ×2 (19:19→19:22)
[2023-01-20 20:04] VITALS: BP 127/69; PULSE 88
== END 2023-01-20 19:51 | disposition home or self-care (01) ==
LOC: EC 13:44
DX: R11.2 Nausea with vomiting, unspecified (principal); R10.9 Unspecified abdominal pain; R00.0 Tachycardia, unspecified; Z88.1 Allergy status to other antibiotic agents; Z90.49 Acquired absence of other specified parts of digestive tract
CPT/HCPCS: 36415; 93005; 80053; 83605; 83690; 85025; 81003; 74177; 99285; 96374; 96375; J1885; C9113; Q9967

== ENCOUNTER 2023-01-24 15:36 | Emergency (ER) | payer BC, MEDICARE ==
[2023-01-24] MEDS ORDERED: SODIUM CHLORIDE 0.9% 1,000 ML IV STA ×2 (16:30→18:10)
[2023-01-24] MEDS ORDERED: ONDANSETRON 4 MG/2 ML VIAL IVP STA ×2 (16:30→18:10)
[2023-01-24] MEDS ORDERED: FAMOTIDINE 20 MG/2 ML VIAL IV STA ×2 (16:31→18:10)
--- NOTE | 2023-01-24 16:34 | ED ---
General Adult HPI - General Chief complaint: Nausea/Vomiting/Diarrhea Stated complaint: vomiting Time Seen by Provider: 01/24/23 16:19 Source: patient, RN notes reviewed, old records reviewed Mode of arrival: ambulatory Limitations: no limitations - History of Present Illness Initial comments: Patient is a pleasant 67-year-old male presenting to the emergency department with nausea vomiting. Onset of symptoms was this morning. Patient has had mostly dry heaves, up to 12 episodes. Patient states there is mild abdominal discomfort. Patient states discomfort is not significant to previous surgery. No fever. No constipation or diarrhea. Patient did go to urgent care and was advised come the emergency department for further evaluation. - Related Data Previous Rx's Medication Instructions Recorded Acetaminophen Tab [Tylenol Tab] 650 mg PO Q4H PRN #30 tablet 12/23/22 Ibuprofen [Motrin] 600 mg PO Q8HR PRN #30 tab 12/23/22 oxyCODONE HCL [OxyIR] 5 mg PO Q6H PRN 3 Days #12 tab 12/23/22 Levofloxacin [Levaquin] 500 mg PO DAILY 10 Days #10 tab 01/04/23 Psyllium Husk 100% [Metamucil 6 gm PO DAILY #1 packet 01/04/23 Packet] Tamsulosin [Flomax] 0.4 mg PO PC-BRKFST #30 cap 01/04/23 metroNIDAZOLE [Flagyl] 500 mg PO TID 10 Days #30 tab 01/04/23 Famotidine [Pepcid] 20 mg PO DAILY 14 Days #14 tablet 01/20/23 Ondansetron Odt [Zofran Odt] 4 mg PO Q8HR PRN #10 tab 01/24/23 Allergies Allergy/AdvReac Type Severity Reaction Status Date / Time azithromycin Allergy Intermediate Rash/Hives Verified 12/22/22 16:15 [From Zithromax Z-Alex] sulfamethoxazole Allergy Rash/Hives Verified 01/24/23 15:46 [From Bactrim] trimethoprim [From Bactrim] Allergy Rash/Hives Verified 01/24/23 15:46 Review of Systems ROS Statement: Those systems with pertinent positive or pertinent negative responses have been documented in the HPI. ROS Other: All systems not noted in ROS Statement are negative. Constitutional: Denies: fever Eyes: Denies: eye pain ENT: Denies: ear pain Respiratory: Denies: cough, dyspnea Cardiovascular: Denies: chest pain Endocrine: Denies: fatigue Gastrointestinal: Reports: as per HPI, nausea, vomiting Musculoskeletal: Denies: back pain Past Medical History Past Medical History: Pulmonary Embolus (PE) Additional Past Medical History / Comment(s): SOLAR KERATOSIS. PRE CANCEROUS LESIONS-SCALP, FACE, HEAD. CURRENTLY ON ANTIBIOTICS FOR UTI SINCE 12/20/16 History of Any Multi-Drug Resistant Organisms: None Reported Past Surgical History: Orthopedic Surgery, Tonsillectomy Additional Past Surgical History / Comment(s): LT PATELLAR REPAIR. COLONOSCOPY Past Anesthesia/Blood Transfusion Reactions: Previous Problems w/ Anesthesia Additional Past Anesthesia/Blood Transfusion Reaction / Comment(s): PE 6 WEEKS AFTER KNEE SX Past Psychological History: No Psychological Hx Reported Smoking Status: Never smoker Past Alcohol Use History: None Reported Past Drug Use History: None Reported - Past Family History Mother History Unknown: Yes Additional Family Medical History / Comment(s): PT ADOPTED-FAMILY HX UNKNOWN General Exam Limitations: no limitations General appearance: alert, in no apparent distress Head exam: Present: normocephalic Eye exam: Present: normal appearance Neck exam: Present: normal inspection Respiratory exam: Present: normal lung sounds bilaterally Cardiovascular Exam: Present: regular rate, normal rhythm Expanded Peripheral pulses: 2+: Posterior Tibialis (R), Posterior Tibialis (L) GI/Abdominal exam: Present: soft, normal bowel sounds. Absent: distended, tenderness, guarding, rebound, rigid, pulsatile mass Extremities exam: Present: normal inspection. Absent: pedal edema, calf ten derness Neurological exam: Present: alert Psychiatric exam: Present: normal affect, normal mood Skin exam: Present: normal color Course Vital Signs 01/24/23 15:43 Temperature 98.3 F Pulse Rate 103 H Respiratory 18 Rate Blood Pressure 127/85 O2 Sat by Pulse 98 Oximetry Medical Decision Making - Medical Decision Making Was pt. sent in by a medical professional or institution (, PA, INTERNAL WHOLESALER, urgent care, hospital, or [facility]...) When possible be specific @ -Patient was sent from urgent care Did you speak to anyone other than the patient for history (EMS, parent, family, police, friend...)? What history was obtained from this source @ -No Did you review nursing and triage notes (agree or disagree)? Why? @ -I reviewed and agree with nursing and triage notes Were old charts reviewed (outside hosp., previous admission, EMS record, old EKG, old radiological studies, urgent care reports/EKG's, [facility] records)? Report findings @ -Since computed tomography scan reviewed. Differential Diagnosis (chest pain, altered mental status, abdominal pain women, abdominal pain men, vaginal bleeding, weakness, fever, dyspnea, syncope, headache, dizziness, GI bleed, back pain, seizure, CVA, palpatations, mental health, musculoskeletal)? @ -Differential Abdominal Pain Men: Appendicitis, cholecystitis, diverticulosis, ischemic bowel, pancreatitis, hepatitis, UTI, gastroenteritis, AAA, incarcerated hernia, bowel obstruction, constipation, inflammatory bowel, hepatitis, peptic ulcer disease, splenic infar ction, perforated viscus, testicular torsion, this is not meant to be an all- inclusive list EKG interpreted by me (3pts min.). @ -As above X-rays interpreted by me (1pt min.). @ -None done CT interpreted by me (1pt min.). @ -None done U/S interpreted by me (1pt. min.). @ -None done What testing was considered but not performed or refused? (CT, X-rays, U/S, labs)? Why? @ -Consider computed tomography scan however patient is nontender and has had recent CT scans. What meds were considered but not given or refused? Why? @ -None Did you discuss the management of the patient with other professionals (professionals i.e. , PA, INTERNAL WHOLESALER, lab, RT, psych nurse, social worker psychiatric, supervisor [place], teacher, chief nursing officer, corrections caseworker)? Give summary @ -No Was smoking cessation discussed for >3mins.? @ -No Was critical care preformed (if so, how long)? @ -No Were there social determinants of health that impacted care today? How? (Homelessness, low income, unemployed, alcoholism, drug addiction, transportation, low edu. Level, literacy, decrease access to med. care, fdc, rehab)? @ -No Was there de-escalation of care discussed even if they declined (Discuss DNR or withdrawal of care, Hospice)? DNR status @ -No What co-morbidities impacted this encounter? (DM, HTN, Smoking, COPD, CAD, Cancer, CVA, ARF, Chemo, Hep., AIDS, mental health diagnosis, sleep apnea, morbid obesity)? @ -None Was patient admitted / discharged? Hospital course, mention meds given and route, prescriptions, significant lab abnormalities, going to OR and other pertinent info. @ -Patient was reevaluated and is feeling better. Patient is tolerating oral intake. Patient updated on results and need for follow-up. Patient states he does have Pepcid at home. Undiagnosed new problem with uncertain prognosis? @ -No Drug Therapy requiring intensive monitoring for toxicity (Heparin, Nitro, Insulin, Cardizem)? @ -No Were any procedures done? @ -No Diagnosis/symptom? @ -Vomiting Acute, or Chronic, or Acute on Chronic? @ -Acute Uncomplicated (without systemic symptoms) or Complicated (systemic symptoms)? @ -default Side effects of treatment? @ -No Exacerbation, Progression, or Severe Exacerbation? @ -No Poses a threat to life or bodily function? How? (Chest pain, USA, LA, pneumonia, PE, COPD, DKA, ARF, appy, cholecystitis, CVA, Diverticulitis, Homicidal, Suicidal, threat to staff... and all critical care pts) @ -No - Lab Data Result diagrams: 01/24/23 16:45 01/24/23 16:45 Lab Results 01/24/23 01/24/23 01/24/23 Range/Units 16:45 16:45 16:45 WBC 9.3 (3.8-10.6) k/uL RBC 4.42 (4.30-5.90) m/uL Hgb 13.8 (13.0-17.5) gm/dL Hct 42.6 (39.0-53.0) % MCV 96.4 (80.0-100.0) fL MCH 31.3 (25.0-35.0) pg MCHC 32.4 (31.0-37.0) g/dL RDW 14.2 (11.5-15.5) % Plt Count 232 (150-450) k/uL MPV 7.9 Neutrophils % 79 % Lymphocytes % 13 % Monocytes % 6 % Eosinophils % 1 % Basophils % 0 % Neutrophils # 7.4 (1.3-7.7) k/uL Lymphocytes # 1.2 (1.0-4.8) k/uL Monocytes # 0.5 (0-1.0) k/uL Eosinophils # 0.1 (0-0.7) k/uL Basophils # 0.0 (0-0.2) k/uL PT 10.9 (10.0-12.5) sec INR 1.0 (<1.2) APTT 22.9 (22.0-30.0) sec Sodium 137 (137-145) mmol/L Potassium 4.5 (3.5-5.1) mmol/L Chloride 101 (98-107) mmol/L Carbon Dioxide 29 (22-30) mmol/L Anion Gap 7 mmol/L BUN 13 (9-20) mg/dL Creatinine 0.63 L (0.66-1.25) mg/dL Est GFR (CKD-EPI)AfAm >90 (>60 ml/min/1.73 sqM) Est GFR (CKD-EPI)NonAf >90 (>60 ml/min/1.73 sqM) Glucose 126 H (74-99) mg/dL Calcium 9.1 (8.4-10.2) mg/dL Total Bilirubin 1.2 (0.2-1.3) mg/dL AST 150 H (17-59) U/L ALT 86 H (4-49) U/L Alkaline Phosphatase 125 (38-126) U/L Total Protein 6.6 (6.3-8.2) g/dL Albumin 3.9 (3.5-5.0) g/dL Amylase 48 (30-110) U/L Lipase 206 (23-300) U/L Disposition Clinical Impression: Vomiting Disposition: HOME SELF-CARE Condition: Stable Instructions (If sedation given, give patient instructions): Acute Nausea and Vomiting (ED) Additional Instructions: Protection for nausea medicine has been sent to pharmacy. Please do follow-up with primary care physician in the next one or 2 days for recheck. Return for uncontrolled vomiting, not tolerating fluids for fever, pain, worsening symptoms or other concerns. Prescriptions: Ondansetron Odt [Zofran Odt] 4 mg PO Q8HR PRN #10 tab PRN Reason: Nausea Is patient prescribed a controlled substance at d/c from ED?: No Referrals: Seferino Esteban DO [Primary Care Provider] - 1-2 days Time of Disposition: 20:19
[2023-01-24 16:56] LABS: Basophils % (A) 0 %; Eosinophils # (A) 0.1 k/uL (0-0.7); Eosinophils % (A) 1 %; HCT 42.6 % (39.0-53.0); HGB 13.8 gm/dL (13.0-17.5); Lymphocytes # (A) 1.2 k/uL (1.0-4.8); Lymphocytes % (A) 13 %; MCH 31.3 pg (25.0-35.0); MCHC 32.4 g/dL (31.0-37.0); MCV 96.4 fL (80.0-100.0); Mean Platelet Volume 7.9; Monocytes # (A) 0.5 k/uL (0-1.0); Monocytes % (A) 6 %; Neutrophils # (A) 7.4 k/uL (1.3-7.7); Neutrophils % (A) 79 %; Platelet Count 232 k/uL (150-450); RBC 4.42 m/uL (4.30-5.90); RDW 14.2 % (11.5-15.5); WBC 9.3 k/uL (3.8-10.6)
[2023-01-24 17:04] LABS: Partial Thromboplastin Time 22.9 sec (22.0-30.0); Prothrombin Time 10.9 sec (10.0-12.5)
[2023-01-24 17:34] LABS: ALT 86 U/L (4-49); AST 150 U/L (17-59); African American GFR (CKD) >90 (>60 ml/min/1.73 sqM); Albumin 3.9 g/dL (3.5-5.0); Alkaline Phosphatase 125 U/L (38-126); Amylase 48 U/L (30-110); Anion Gap 7 mmol/L; Blood Urea Nitrogen 13 mg/dL (9-20); Calcium 9.1 mg/dL (8.4-10.2); Carbon Dioxide 29 mmol/L (22-30); Chloride 101 mmol/L (98-107); Glucose 126 mg/dL (74-99); Lipase 206 U/L (23-300); Non-African American GFR(CKD) >90 (>60 ml/min/1.73 sqM); Potassium 4.5 mmol/L (3.5-5.1); Sodium 137 mmol/L (137-145); Total Bilirubin 1.2 mg/dL (0.2-1.3); Total Protein 6.6 g/dL (6.3-8.2)
[2023-01-24] MEDS ORDERED: METOCLOPRAMIDE 5 MG/ML 2 ML VIAL IVP STA (19:12)
[2023-01-24 21:35] VITALS: BP 121/87; PULSE 76; RESP 16; TEMP 98.1
== END 2023-01-24 20:40 | disposition home or self-care (01) ==
LOC: EC 15:36
DX: R11.2 Nausea with vomiting, unspecified (principal); I49.3 Ventricular premature depolarization; Z88.2 Allergy status to sulfonamides; Z88.1 Allergy status to other antibiotic agents
CPT/HCPCS: 36415; 80053; 82150; 83690; 85025; 85610; 85730; 99284; 96374; 96375 ×2; 96376 ×2; 96361 ×2; J2765; J2405; J3490

== ENCOUNTER → 2023-03-03 | Outpatient (CLI) | payer BC ==
--- NOTE | 2023-03-04 18:34 | NM ---
EXAMINATION TYPE: NM hepatobiliary wo EF DATE OF EXAM: 03/03/2023 COMPARISON: NONE INDICATION: Abdominal pain TECHNIQUE: After the intravenous administration of 5.1 mCi Tc 99m Mebrofenin hepatobiliary scintigrap hy is performed. Images were obtained immediately post injection. FINDINGS: There is prompt uptake and excretion of radiotracer by the liver. Extrahepatic ducts are identified at 6 minutes. The gallbladder is nonvisualized. Delayed images out to 4 hours are obtained without visualization of the gallbladder. Small bowel activity is noted within 12 minutes. IMPRESSION: 1. Clinical correlation recommended for acute cholecystitis and cystic duct obstruction
== END | disposition home or self-care (01) ==
LOC: RADNMMAIN 12:56
PROVIDERS: ATTEND Family Medicine
DX: R10.9 Unspecified abdominal pain (principal)
CPT/HCPCS: 78226; A9537

== ENCOUNTER 2023-04-10 07:18 | Day surgery (SDC) | payer BC ==
[~2023-04-10 07:18] MED LIST changes: +ACETAMINOPHEN TAB 500 MG TAB PO PRN; +DEXAMETHASONE SOD PHOSPHATE 4 MG/ML 1 ML VIAL IV ONE; +HEPARIN SODIUM,PORCINE 5,000 UNIT/ML 1 ML VIAL SQ PRN; +HYDROmorphone 0.5 MG/0.5 ML SYRINGE IVP PRN; -LACTATED RINGERS 1,000 ML IV SCH; +LIDOCAINE 1% (10MG/ML) FOR IV START INTRADERMA PRN; -LIDOCAINE 1% 20 ML VIAL (10MG/ML) FOR IV START INTRADERMA PRN; +ONDANSETRON 4 MG/2 ML VIAL IVP ONE; +droPERidol 5 MG/2 ML VIAL IVP PRN
[2023-04-10] MEDS: LACTATED RINGERS 1,000 ML IV SCH ×2 (08:00→09:48)
[2023-04-10] MEDS ORDERED: TAMSULOSIN 0.4 MG CAP.ER.24H PO ONE (08:21)
[2023-04-10] MEDS ORDERED: ACETAMINOPHEN TAB 500 MG TAB ONE (08:26)
[2023-04-10 08:49] LABS: Basophils % (A) 1 %; Eosinophils # (A) 0.1 k/uL (0-0.7); Eosinophils % (A) 3 %; HCT 42.7 % (39.0-53.0); HGB 14.1 gm/dL (13.0-17.5); Lymphocytes % (A) 42 %; MCH 30.9 pg (25.0-35.0); MCHC 32.9 g/dL (31.0-37.0); Mean Platelet Volume 7.8; Monocytes # (A) 0.3 k/uL (0-1.0); Monocytes % (A) 6 %; Neutrophils # (A) 2.1 k/uL (1.3-7.7); Neutrophils % (A) 44 %; Platelet Count 172 k/uL (150-450); RBC 4.55 m/uL (4.30-5.90); RDW 14.1 % (11.5-15.5); WBC 4.7 k/uL (3.8-10.6)
[2023-04-10] MEDS ORDERED: KETOROLAC 15 MG/ML 1 ML VIAL ONE (09:44)
[2023-04-10] MEDS ORDERED: GLYCOPYRROLATE 0.2 MG/ML 2 ML VIAL ONE (09:44)
[2023-04-10] MEDS ORDERED: ROCURONIUM 10 MG/ML (5 ML VIAL) IV ONE (09:44)
[2023-04-10] MEDS ORDERED: SUCCINYLCHOLINE CHLORIDE 200 MG/10 ML VIAL IV ONE (09:44)
[2023-04-10] MEDS ORDERED: PROPOFOL 10 MG/ML 20 ML VIAL IV ONE (09:44)
[2023-04-10] MEDS ORDERED: PHENYLEPHRINE-0.9% NACL SYG 1,000 MCG/10 ML SYRINGE ONE (09:44)
[2023-04-10] MEDS ORDERED: MIDAZOLAM 2 MG/2 ML VIAL ONE (09:44)
[2023-04-10] MEDS ORDERED: NEOSTIGMINE 1 MG/ML 10 ML VIAL ONE (09:44)
[2023-04-10] MEDS ORDERED: fentaNYL (PF) 50 MCG/ML 2 ML AMP ONE (09:44)
[2023-04-10] MEDS ORDERED: LIDOCAINE 1% INJ 10MG/ML (20 ML MDV) ONE (09:44)
[2023-04-10] MEDS ORDERED: BUPIVACAINE (PF) 0.25% 30 ML VIAL SQ ONE (10:04)
[2023-04-10] MEDS ORDERED: LACTATED RINGERS 1,000 ML IV ONE (10:57)
--- NOTE | 2023-04-10 11:30 | P.OP ---
Date of Procedure: 04/10/23 Preoperative Diagnosis: Cholecystitis Postoperative Diagnosis: Cholecystitis Cholelithiasis Procedure(s) Performed: Laparoscopic cholecystectomy Anesthesia: DUC Surgeon: Curry Barraza Estimated Blood Loss (ml): 5 Pathology: other (Gallbladder) Condition: stable Disposition: PACU Description of Procedure: The patient was placed on the operating table. The patient received a general endotracheal tube anesthesia. The patients abdomen was prepped and draped in the usual sterile fashion. Through an infraumbilical stab incision, the fascia of the anterior abdominal wall was grasped with a pair of Kochers and then the Veress needle was placed in the peritoneal cavity. Position of the Veress needle was confirmed with positive drop test. The abdomen was then insufflated. After adequate insufflation, the 10 mm trocar was placed in the peritoneal cavity. Following this the laparoscope was placed in the peritoneal cavity. The patient was placed in the head-up, right side up position and then a 5 mm trocar was placed in the right lateral and right subcostal position under direct visualization. A 8 mm trocar was placed in the epigastric position. The gallbladder was grasped in the fundus and infundibulum. Traction on the gallbladder was placed in the lateral and the cephalad positions. The triangle of Calot was visualized.. The cystic duct was bluntly dissected until the union of the cystic duct and common bile duct was seen. A critical view of safety was achieved. The cystic duct was then divided and sealed with the Harmonic scissors. A PDS Endoloop was then placed throughout the cystic duct stump. The cystic artery divided and sealed with the Harmonic scissors. The gallbladder was then removed from the liver bed using Harmonic scissors. The gallbladder was then extracted through the epigastric port site. Operative field was checked for any bleeding spots and Harmonic scissors was used to coagulate the liver bed. The abdomen was irrigated. The trocars were removed. The skin was closed using interrupted 3-0 Vicryl suture. Dermabond dressing were applied. The patient tolerated the procedure well.
[2023-04-10 11:31] VITALS: RESP 16; TEMP 96.8
[2023-04-10 13:08] VITALS: BP 99/60; PULSE 64
== END 2023-04-10 13:26 | disposition home or self-care (01) ==
LOC: OR 07:18
PROVIDERS: ATTEND Surgery
DX: K80.12 Calculus of gallbladder with acute and chronic cholecystitis without obstruction (principal); Z86.711 Personal history of pulmonary embolism; Z88.1 Allergy status to other antibiotic agents; Z88.2 Allergy status to sulfonamides; Z79.899 Other long term (current) drug therapy; Z98.890 Other specified postprocedural states
CPT/HCPCS: 47562; 88304; 85025; J2250; J0330; J1644; J1100; J2710; J0690; J2405; J2001; J3010; J1885; J2704; J2371; J0665